=== PATIENT | female | born 1945 | race African-American/Black ===

== ENCOUNTER 2017-11-17 14:19 | Inpatient (IN) | payer OTHER ==
--- NOTE | 2017-11-17 16:18 | PDOC ---
Attending Attestation - Resident Resident Name: CarenKassidy - ED Attending Attestation I have performed the following: I have examined & evaluated the patient, The case was reviewed & discussed with the resident, I agree w/resident's findings & plan, Exceptions are as noted - HPI HPI: 11/17/17 18:38 72yo female sent from [facility] for R groin/hip/sacral wound. Pt is demented, DNR in paperwork. Dr. Salazar originally performed hip surgery in 2009 per the daughter. Purulent drainage from R hip wound. - Physicial Exam PE: 11/17/17 18:41 gen: awake, demented, moans heart: +s1s2 reg lungs: soft wheezing b/l bases abd: soft, obese, nt, R groin with 3cm open wound to inguinal fold, r lateral hip with open wound and packing with purulent drainage - tracts about 6cm into the wound, R sacral unstagable wound with necrotic tissue surrounding the wound ext: contracted LE, radial and pedal pulses intact - Critical Care Time Total Critical Care Time: 45 Critical Care Statement: The care of this patient involved high complexity decision making to prevent further life threatening deterioration of the patient 's condition and/or to evaluate & treat vital organ system(s) failure or risk of failure. - Medical Decision Making 11/17/17 16:18 I, Dr. Ginger Ballard, DO, attest that this document has been prepared under my direction and personally reviewed by me in its entirety. I further attest, that it accurately reflects all work, treatment, procedures and medical decision -making performed by me. 11/17/17 18:40 72yo female with poss infected hardware -pt hypotensive, febrile upon arrival -Packing to R lateral hip wound with purulent draiange -open wound to R groin -large unstagable sacral wound -concern for infected R hip with chronic infection to hardware from prior hip surgery -Dr. Salazar is ortho -will culture wound, blood cultures, start broad spectrum abx will obtain ct to eval the site and poss fistula site -will need ID, admission, ortho eval 11/17/17 19:[address] Salazar, will see patient in consult requests full length femur xray agrees with abx 11/17/17 20:08 resident discussed the case with maria elena who accepts pt to admission Heart Score/ECG Review - ECG Intrepretation Comment:: 11/17/17 18:43 sinus at 87, nl axis, nl interval, no acute st/t wave findings
[2017-11-17] MEDS ORDERED: ACETAMINOPHEN 1000 MG/100 ML VIAL (NON FORMULARY) IVPB ONE (16:42)
[2017-11-17] MEDS ORDERED: SODIUM CHLORIDE 0.9% 1000 ML INFUS.BAG IV ONE (16:42)
[2017-11-17] MEDS ORDERED: PIPERACILLIN/TAZOB 3.375 GM 3.375 GM in DEXTROSE 5%-WATER - 50 ML IVPB ONE (16:43)
[2017-11-17] MEDS ORDERED: VANCOMYCIN 1,000 MG in DEXTROSE 5%-WATER - 250 ML IVPB ONE (16:44)
[2017-11-17] MEDS ORDERED: VANCOMYCIN 1 GRAM (PRE-DOCKED) 1,000 MG/250 ML BAG IVPB ONE (17:19)
[2017-11-17] MEDS ORDERED: ACETAMINOPHEN INJECTION 100 ML IVPB ONE (17:19)
[2017-11-17 17:21] LABS: INR 1.21 (0.83-1.09); PROTHROMBIN TIME (PATIENT) 13.7 SEC (9.7-13.0)
[2017-11-17 17:33] LABS: BASO % 0.5 % (0-2.0); EOS % 0.2 % (0-4.5); HEMATOCRIT 28.5 % (32.4-45.2); HEMOGLOBIN 8.9 GM/dL (10.7-15.3); LYMPH % 6.5 % (8-40); MCH 24.2 pg (25.7-33.7); MCHC 31.3 g/dl (32.0-36.0); MEAN CELL VOLUME 77.2 fl (80-96); MEAN PLT VOLUME 6.8 fl (7.5-11.1); MONO % 7.8 % (3.8-10.2); PLATELET COUNT 745 K/MM3 (134-434); RBC 3.69 M/mm3 (3.60-5.2); RDW 16.8 % (11.6-15.6); WHITE BLOOD COUNT 18.4 K/mm3 (4.0-10.0)
--- NOTE | 2017-11-17 18:51 | PDOC ---
History of Present Illness - General Chief Complaint: Wound Stated Complaint: WOUND CHECK Time Seen by Provider: 11/17/17 16:16 - History of Present Illness Initial Comments: Yasmine Munoz is a 72yo woman with a PMH of dementia, chronic BLE contractures , h/o right hip replacement (?) with known infection, according to her daughter. She was sent from [facility] for management of a right hip wound and large sacral ulcer. Per her daughter Kacey, Ms Munoz had her hip surgery about 8 years ago. She initially did well but had a fall the following spring with a back injury. She then had surgery on her back. Since that time, she has been non-ambulatory and now has leg contractures. Kacey reports that Ms Munoz has been treated numerous times for infection in the hip, and she has had debridements of sacral ulcers multiple times. However, she has only been receiving local wound care for months now. Per her PMD Dr Bennett at her SNF, it does not appear that she has been evaluated by infectious disease or orthopedics for at least 4 years. There are no recent labs or cultures available. She reported that she recently took over the care of Ms Munoz, so she does not know the entire history. However, she reported that the wound had a foul odor and was draining when the patient was evaluated. She felt that it needed evaluation and management by orthopedics and ID. Past History - Past Medical History Allergies/Adverse Reactions: Allergies Allergy/AdvReac Type Severity Reaction Status Date / Time No Known Allergies Allergy Verified 11/17/17 14:52 Home Medications: Ambulatory Orders Doxycycline Monohydrate [Mondoxyne Nl] 100 mg PO DAILY 11/17/17 Fentanyl 1 each TD DAILY 11/17/17 Ferrous Sulfate [Ferosul] 220 mg PO DAILY 11/17/17 Folic Acid 1 mg PO DAILY 11/17/17 Furosemide [Lasix] 20 mg PO DAILY 11/17/17 Lactobacillus Acidophilus [Acidophilus] 1 each PO BID 11/17/17 Sennosides [Senna] 8.6 mg PO DAILY 11/17/17 Vit C/Ascorbate Calcium,Sodium [Vitamin C 500 mg/15 ml Liquid] 500 mg PO DAILY 11/17/17 Anemia: Yes CVA: No (TIA) COPD: No GI Disorders: Yes (Acute Renal Failure) Other medical history: dementia - Immunization History Immunization Up to Date: No - Suicide/Smoking/Psychosocial Hx Smoking History: Unknown if ever smoked Hx Alcohol Use: No Drug/Substance Use Hx: No Substance Use Type: None Review of Systems - Review of Systems Able to Perform ROS?: No Comments:: Could not obtain, patient minimally verbal *Physical Exam - Vital Signs Last Vital Signs Temp Pulse Resp BP Pulse Ox 91 H 17 99/54 95 11/17/17 14:56 11/17/17 14:56 11/17/17 14:56 11/17/17 14:56 - Physical Exam Comments: General: Uncomfortable HEENT: PERRL, EOMI, MMM, adentulous Cards: RRR Pulm: Comfortable on room air, diffuse wheezing Abd: Soft, nontender, nondistended. Draining wound on lower right abdomen between abdominal folds approximately 3cm in length, 2cm deep with purulent fluid. No significant surrounding erythema. Rectal/Perineal: Unstagable sacral ulcer with necrotic tissue, down to bone, stool contaminating wound. Ext: Right hip small less than 0.5cm wound, iodoform packing in place, purulent drainage. Tracks at least 6cm deep. R foot with pitting edema to foot only, distal to ankle. BLE contracted, minimal muscle mass distal to knees Vasc: Extremities WWP. Palpable radial pulses Neuro: Awake. Minimally responsive, does not answer questions, states "go away" when initially examined. Moans and grimaces to pain. Moves BUE equally. ED Treatment Course - LABORATORY CBC & Chemistry Diagram: 11/17/17 16:30 11/17/17 18:14 - ADDITIONAL ORDERS Additional order review: Laboratory Results 11/17/17 11/17/17 11/17/17 16:30 16:30 16:30 PT with INR 13.70 H INR 1.21 H PTT (Actin FS) 31.0 Sodium Cancelled Potassium Cancelled Chloride Cancelled Carbon Dioxide Cancelled Anion Gap Cancelled BUN Cancelled Creatinine Cancelled Creat Clearance w eGFR Cancelled Random Glucose Cancelled Lactic Acid 1.6 Calcium Cancelled Magnesium Cancelled Total Bilirubin Cancelled AST Cancelled ALT Cancelled Alkaline Phosphatase Cancelled Creatine Kinase Cancelled Troponin I Cancelled Total Protein Cancelled Albumin Cancelled 11/17/17 16:30 RBC 3.69 MCV 77.2 L MCHC 31.3 L RDW 16.8 H MPV 6.8 L Neutrophils % 85.0 H Lymphocytes % 6.5 L Monocytes % 7.8 Eosinophils % 0.2 Basophils % 0.5 - Medications Given in the ED: ED Medications Discontinued Medications Generic Name Dose Route Start Last Admin Trade Name Jud PRN Reason Stop Dose Admin Acetaminophen 1,000 mg 11/17/17 16:42 11/17/17 17:30 Ofirmev Injection - IVPB 11/17/17 16:43 1,000 mg ONCE ONE Administration Vancomycin HCl 1,000 mg/ 250 mls @ 166.667 mls/hr 11/17/17 16:44 11/17/17 17: 57 Dextrose IVPB 11/17/17 18:13 166.667 mls/hr ONCE ONE Administration Protocol Sodium Chloride 1,000 ml 11/17/17 16:42 11/17/17 17:31 Normal Saline - IV 11/17/17 16:43 1,000 ml ONCE ONE Administration Medical Decision Making - Medical Decision Making 11/17/17 19:30 Yasmine Munoz is a 72yo woman who presents from [facility] for evaluation of a chronic right hip wound and decubitus ulcer that appear grossly infected. - Unknown medical history; her daughter reports that she has had infected wounds for several years, but her new PMD Dr Bennett does not believe that she has been evaluated or treated for at least 4 years - Unclear what type of wound care she has been receiving - Spoke to Dr Bennett, wound like Ms Munoz seen by ortho and ID - Spoke to Dr Les Cassidy for possible nephrology evaluation, will see tomorrow - Contacted Dr Salazar. Requested femur xrays in addition to CT - Sepsis workup pending. CBC, CMP, lactate, trop, EKG, CXR, CT abd/pelvis and R hip Update: - CXR and EKG without acute changes - Leukocytosis to 18 - Vanc, zosyn, bolus NS ordered - Kidney function OK for contrast, will send to CT - Spoke to hospitalist team. Will admit Discussed with Dr Ballard. *DC/Admit/Observation/Transfer Diagnosis at time of Disposition: Wound, open, hip or thigh with complication, Wound infection - Discharge Dispostion Condition at time of disposition: Fair Decision to Admit order: Yes - Referrals - Patient Instructions - Post Discharge Activity
[2017-11-17 19:07] LABS: ALBUMIN 1.5 g/dl (3.4-5.0); ALK PHOS 181 U/L (45-117); ANION GAP 10 MMOL/L (8-16); BILIRUBIN,TOTAL 0.3 mg/dL (0.2-1.0); BLOOD UREA NITROGEN 19 mg/dL (7-18); CALCIUM 7.9 mg/dL (8.5-10.1); CHLORIDE 103 mmol/L (98-107); CO2 21 mmol/L (21-32); CREATININE 0.5 mg/dL (0.55-1.02); GLUCOSE,RANDOM 99 mg/dL (74-106); MAGNESIUM 1.9 mg/dL (1.8-2.4); SGOT/AST 7 U/L (15-37); SGPT/ALT 8 U/L (12-78); SODIUM 134 mmol/L (136-145)
[2017-11-17] MEDS ORDERED: PIPERACILLIN/TAZOB 3.375 GM 3.375 GM/50 ML BAG IVPB ONE (19:52)
[2017-11-17] MEDS ORDERED: HEPARIN NA (PORCINE) 5,000 UNITS/ML 1ML VIAL ONE (20:48)
--- NOTE | 2017-11-17 20:52 | HP ---
CHIEF COMPLAINT: Decubitus Ulcers and Draining Wounds PCP: Dr. Rosario HISTORY OF PRESENT ILLNESS: This is a 72 y/o woman from [facility] PMH of dementia, chronic BLE contractures, h/o right hip replacement (?) with known infection. Who presents to the ED via ambulance for evaluation of decubitus ulcers and draining wounds. Per patient's daughter who is at bedside, she was sent from [facility] for management of a right hip wound and large sacral ulcer. Per her daughter Kacey, Ms Munoz had her hip surgery about 8 years ago. She initially did well but had a fall the following spring with a back injury. She then had surgery on her back. Since that time, she has been non-ambulatory and now has leg contractures. The daughter reports that the patient has been treated numerous times for infection in the hip, and has had debridements of sacral ulcers multiple times. However, per the daughter, the patient has only been receiving local wound care for months now. Per ED records: Per her PMD Dr Bennett at the [facility], it does not appear that she has been evaluated by infectious disease or orthopedics for at least 4 years. There are no recent labs or cultures available. She reported that she recently took over the care of Ms Munoz, so she does not know the entire history. However, she reported that the wound had a foul odor and was draining when the patient was evaluated. She felt that it needed evaluation and management by orthopedics and ID. ER course was notable for: (1) WBC 18.6 (2) Chest Xray- no acute pathology (3) CTAP- no gross acute pathology within abdomen and pelvis (4) Lower Extremity CT- marked deformity of left hip. no evidence of soft tissue masses or fluid collections about either hip Recent Travel: None PAST MEDICAL HISTORY: See HPI PAST SURGICAL HISTORY: See HPI Social History: Smoking: unknown Alcohol: unknown Drugs: unknown Resides in [facility] Family History: Non-contributory Allergies No Known Allergies Allergy (Verified 11/17/17 14:52) HOME MEDICATIONS: Home Medications Medication Instructions Recorded Doxycycline Monohydrate [Mondoxyne 100 mg PO DAILY 11/17/17 Nl] Fentanyl 1 each TD DAILY 11/17/17 Ferrous Sulfate [Ferosul] 220 mg PO DAILY 11/17/17 Folic Acid 1 mg PO DAILY 11/17/17 Furosemide [Lasix] 20 mg PO DAILY 11/17/17 Lactobacillus Acidophilus 1 each PO BID 11/17/17 [Acidophilus] Sennosides [Senna] 8.6 mg PO DAILY 11/17/17 Vit C/Ascorbate Calcium,Sodium 500 mg PO DAILY 11/17/17 [Vitamin C 500 mg/15 ml Liquid] REVIEW OF SYSTEMS: Dementia CONSTITUTIONAL: Absent: fever, chills, diaphoresis, generalized weakness, malaise, loss of appetite, weight change HEENT: Absent: rhinorrhea, nasal congestion, throat pain, throat swelling, difficulty swallowing, mouth swelling, ear pain, eye pain, visual changes CARDIOVASCULAR: Absent: chest pain, syncope, palpitations, irregular heart rate, lightheadedness , peripheral edema RESPIRATORY: Absent: cough, shortness of breath, dyspnea with exertion, orthopnea, wheezing, stridor, hemoptysis GASTROINTESTINAL: Absent: abdominal pain, abdominal distension, nausea, vomiting, diarrhea, constipation, melena, hematochezia GENITOURINARY: Absent: dysuria, frequency, urgency, hesitancy, hematuria, flank pain, genital pain MUSCULOSKELETAL: Absent: myalgia, arthralgia, joint swelling, back pain, neck pain SKIN: Absent: rash, itching, pallor HEMATOLOGIC/IMMUNOLOGIC: Absent: easy bleeding, easy bruising, lymphadenopathy, frequent infections ENDOCRINE: Absent: unexplained weight gain, unexplained weight loss, heat intolerance, cold intolerance NEUROLOGIC: Absent: headache, focal weakness or paresthesias, dizziness, unsteady gait, seizure, mental status changes, bladder or bowel incontinence PSYCHIATRIC: Absent: anxiety, depression, suicidal or homicidal ideation, hallucinations. PHYSICAL EXAMINATION Vital Signs - 24 hr 11/17/17 14:56 Pulse Rate 91 H Respiratory 17 Rate Blood Pressure 99/54 O2 Sat by Pulse 95 Oximetry (%) GENERAL: Lethargic, arousable to tactile stimulus, non-verbal- at baseline, in no acute distress. HEAD: Normal with no signs of trauma. EYES: Pupils equal, round and reactive to light, sclera anicteric, conjunctiva clear. No lid lag. EARS, NOSE, THROAT: Ears normal, nares patent, oropharynx clear without exudates. Dry mucous membranes. NECK: Normal range of motion, supple without lymphadenopathy, JVD, or masses. LUNGS: Breath sounds equal, clear to auscultation bilaterally. No wheezes, and no crackles. No accessory muscle use. HEART: Regular rate and rhythm, normal S1 and S2 without murmur, rub or gallop. ABDOMEN: Soft, obese, nontender, not distended, normoactive bowel sounds, no guarding, no rebound, no masses. No hepatomegaly or splenomegaly. Ventral hernia noted MUSCULOSKELETAL: Severe contractures, atrophy to LLE UPPER EXTREMITIES: 2+ pulses, warm, well-perfused. No cyanosis. No clubbing. No peripheral edema. LOWER EXTREMITIES: 2+ pulses, warm, well-perfused. No calf tenderness. +1 pitting peripheral edema to RLE,Right foot NEUROLOGICAL: Cranial nerves II-XII intact. Non verbal- baseline, gait not observed- non-ambulatory. PSYCHIATRIC: Cooperative. Some eye contact. Appropriate mood and affect. SKIN: Warm, dry, poor turgor, no rashes noted, normal capillary refill, multiple decubitus ulcers unstageable, #1Left Gluteus 10 cm x 5.5 cm Unstageable. #2 Left Gluteus Inferior 14 cm x8 cm (to the bone) Unstageable. #3Right Gluteus 14 cm x 2 cm x 8 cm Unstageable. #4Right Gluteus Inferior 4 cm x 5 cm Unstageable. 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 with packing noted Laboratory Results - last 24 hr 11/17/17 11/17/17 11/17/17 16:30 16:30 16:30 WBC RBC Hgb Hct MCV MCH MCHC RDW Plt Count MPV Absolute Neuts (auto) Neutrophils % Lymphocytes % Monocytes % Eosinophils % Basophils % Nucleated RBC % PT with INR 13.70 H INR 1.21 H PTT (Actin FS) 31.0 Sodium Cancelled Potassium Cancelled Chloride Cancelled Carbon Dioxide Cancelled Anion Gap Cancelled BUN Cancelled Creatinine Cancelled Creat Clearance w eGFR Cancelled Random Glucose Cancelled Lactic Acid 1.6 Calcium Cancelled Magnesium Cancelled Total Bilirubin Cancelled AST Cancelled ALT Cancelled Alkaline Phosphatase Cancelled Creatine Kinase Cancelled Troponin I Cancelled Total Protein Cancelled Albumin Cancelled 11/17/17 11/17/17 16:30 18:14 WBC 18.4 H RBC 3.69 Hgb 8.9 L Hct 28.5 L MCV 77.2 L MCH 24.2 L MCHC 31.3 L RDW 16.8 H Plt Count 745 H MPV 6.8 L Absolute Neuts (auto) 15.7 H Neutrophils % 85.0 H Lymphocytes % 6.5 L Monocytes % 7.8 Eosinophils % 0.2 Basophils % 0.5 Nucleated RBC % 0 PT with INR INR PTT (Actin FS) Sodium 134 L Potassium 4.0 Chloride 103 Carbon Dioxide 21 Anion Gap 10 BUN 19 H Creatinine 0.5 L Creat Clearance w eGFR > 60 Random Glucose 99 Lactic Acid Calcium 7.9 L Magnesium 1.9 Total Bilirubin 0.3 AST 7 L ALT 8 L Alkaline Phosphatase 181 H Creatine Kinase 45 Troponin I < 0.02 Total Protein 6.0 L Albumin 1.5 L ASSESSMENT/PLAN: This is a 72 y/o woman from [facility] PMHx Dementia. Admitted for Severe Decubital Ulcers and Draining Wounds for further evaluation of their emergent condition. Plan: Will admit to M/S Continue Vancomycin and Zosyn Wound cultures-pending Blood Cultures-pending Appreciate ID consult Appreciate Surgical Consult Appreciate Ortho Consult Monitor CBC, BMP Monitor vitals Case Mangement consult- SNF placement Functional Quadriplegia- complete immobility due to fraility, end stage Dementia , requires total care, turn Q2h, Robbin Lift as needed, Heel protectors, Fall Precautions Wound Care Nurse Continue home meds NPO until eval by Surgical, Ortho Team FEN: D51/2NS@42ml/hr replete lytes prn NPO DVT ppx SCDs Heparin SQ Code Status: DNR, HCP Kacey Munoz, Daughter Dispo: Requires Inpatient Care Problem List - Problem (1) Decubitus ulcer of buttock, unstageable Code(s): L89.300 - PRESSURE ULCER OF UNSPECIFIED BUTTOCK, UNSTAGEABLE (2) Wound infection Code(s): T14.8XXA - OTHER INJURY OF UNSPECIFIED BODY REGION, INITIAL ENCOUNTER; L08.9 - LOCAL INFECTION OF THE SKIN AND SUBCUTANEOUS TISSUE, UNSP (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 - OTH DISRD OF THE SKIN AND SUBCUTANEOUS TISSUE (4) Wound, open, hip or thigh with complication Code(s): S71.009A - UNSPECIFIED OPEN WOUND, UNSPECIFIED HIP, INITIAL ENCOUNTER; S71.109A - UNSPECIFIED OPEN WOUND, UNSPECIFIED THIGH, INITIAL ENCOUNTER (5) Dementia Code(s): F03.90 - UNSPECIFIED DEMENTIA WITHOUT BEHAVIORAL DISTURBANCE (6) Functional quadriplegia Code(s): R53.2 - FUNCTIONAL QUADRIPLEGIA Visit type - Emergency Visit Emergency Visit: Yes ED Registration Date: 11/17/17 Care time: The patient presented to the Emergency Department on the above date and was hospitalized for further evaluation of their emergent condition. - New Patient This patient is new to me today: Yes Date on this admission: 11/17/17 - Critical Care Critical Care patient: No Hospitalist Screening - Colonoscopy Questionnaire Colonoscopy Questionnaire: Colonoscopy Questionnaire - Patient: 50 - 75 years old and never had a screening colonoscopy: Unknown History of colon or rectal polyps, or CA: Unknown History of IBD, Crohn's disease or UC: Unknown History of abdominal radiation therapy as a child: Unknown - Relative: 1 with colon or rectal CA, or polyps at age 60 or younger: Unknown Colon or rectal CA diagnosed at age 45 or younger: Unknown Multiple relatives with colon or rectal CA: Unknown - Outcome: Screening Result: Negative Screen
[2017-11-17] MEDS: DEXTROSE 5%-0.45% SALINE 1,000 ML IV SCH (21:00)
[2017-11-17] MEDS: HEPARIN NA (PORCINE) 5,000 UNITS/ML 1ML VIAL SQ SCH (22:15)
[2017-11-17] MEDS ORDERED: KETOROLAC TROMETHAMINE 15 MG/ML VIAL IVPUSH ONE (22:45)
[2017-11-17] MEDS ORDERED: KETOROLAC TROMETHAMINE 30 MG/1 ML VIAL ONE (23:20)
[2017-11-18] MEDS ORDERED: PIPERACILLIN/TAZOBACTAM 3.375 GM VIAL IVPB ONE ×3 (02:24→19:10)
[2017-11-18] MEDS ORDERED: DEXTROSE 5%-WATER - 50 ML IVPB ONE ×3 (02:25→19:11)
[2017-11-18] MEDS: PIPERACILLIN/TAZOB 3.375 GM 3.375 GM in DEXTROSE 5%-WATER - 50 ML IVPB SCH ×3 (02:26→19:15)
[2017-11-18 03:33] VITALS: BMI 27.6
[2017-11-18] MEDS: HEPARIN NA (PORCINE) 5,000 UNITS/ML 1ML VIAL SQ SCH ×3 (06:57→22:44)
[2017-11-18 07:08] LABS: BASO % 0.6 % (0-2.0); EOS % 0.6 % (0-4.5); HEMATOCRIT 26.3 % (32.4-45.2); HEMOGLOBIN 8.2 GM/dL (10.7-15.3); LYMPH % 7.8 % (8-40); MCH 23.9 pg (25.7-33.7); MCHC 31.2 g/dl (32.0-36.0); MEAN CELL VOLUME 76.5 fl (80-96); MEAN PLT VOLUME 6.2 fl (7.5-11.1); MONO % 7.6 % (3.8-10.2); NEUT % 83.4 % (42.8-82.8); PLATELET COUNT 656 K/MM3 (134-434); RBC 3.44 M/mm3 (3.60-5.2); RDW 16.9 % (11.6-15.6); WHITE BLOOD COUNT 15.3 K/mm3 (4.0-10.0)
[2017-11-18 07:51] LABS: ANION GAP 10 MMOL/L (8-16); BLOOD UREA NITROGEN 18 mg/dL (7-18); CALCIUM 8.1 mg/dL (8.5-10.1); CHLORIDE 106 mmol/L (98-107); CO2 22 mmol/L (21-32); CREATININE 0.5 mg/dL (0.55-1.02); GLUCOSE,RANDOM 90 mg/dL (74-106); POTASSIUM 3.8 mmol/L (3.5-5.1); SODIUM 138 mmol/L (136-145)
--- NOTE | 2017-11-18 09:13 | EKG ---
Test Reason : Blood Pressure : / mmHG Vent. Rate : 087 BPM Atrial Rate : 087 BPM P-R Int : 152 ms QRS Dur : 080 ms QT Int : 354 ms P-R-T Axes : 058 -07 016 degrees QTc Int : 425 ms NORMAL SINUS RHYTHM Poor R POOR R WAVE PROGRESSION WHEN COMPARED WITH ECG OF 11-JUN-2009 21:46, NO SIGNIFICANT CHANGE WAS FOUND Confirmed by SKYE TORRES MD ([id number]) on 11/18/2017 9:13:26 AM Referred By: Confirmed By:SKYE TORRES MD
--- NOTE | 2017-11-18 09:49 | PN ---
Progress Note, Physician Chief Complaint: sepsis Infected decubitous ulcers History of Present Illness: nad Severely contracted several decubitus ulcers, ranging from stage 2-4 Seen by ID Seen by Surgery Wound consult placed IV abx UA/UC pending - Current Medication List Current Medications: Active Medications Acetaminophen (Tylenol -) 650 mg PO Q4H PRN PRN Reason: PAIN OR FEVER Ascorbic Acid (Vitamin C -) 500 mg PO BID [facility] Ferrous Sulfate (Feosol) 300 mg PO BID [facility] Folic Acid (Folic Acid -) 1 mg PO DAILY [facility] Furosemide (Lasix -) 20 mg PO DAILY [facility] Heparin Sodium (Porcine) (Heparin -) 5,000 unit SQ TID [facility] Last Admin: 11/18/17 06:57 Dose: 5,000 unit Dextrose/Sodium Chloride (D5-1/2ns -) 1,000 mls @ 42 mls/hr IV ASDIR [facility] Last Admin: 11/17/17 21:00 Dose: 42 mls/hr Vancomycin HCl 1,250 mg/ (Dextrose) 250 mls @ 250 mls/2 hr IVPB Q24H [facility]; Protocol Piperacillin Sod/Tazobactam (Sod 3.375 gm/ Dextrose) 50 mls @ 100 mls/hr IVPB Q8H-IV [facility]; Protocol Piperacillin Sod/Tazobactam (Sod 3.375 gm/ Dextrose) 50 mls @ 100 mls/hr IVPB Q8H-IV [facility]; Protocol Stop: 11/18/17 10:29 Last Admin: 11/18/17 09:41 Dose: 100 mls/hr Lactobacillus Acidophilus (Bacid -) 1 tab PO DAILY [facility] Multivitamins/Minerals/Vitamin C (Tab-A-Vit -) 1 tab PO DAILY [facility] Senna (Senna -) tab PO DAILY [facility] Zinc Sulfate (Orazinc -) 220 mg PO BID [facility] - Objective Vital Signs: Vital Signs Temperature 98.2 F 11/18/17 02:00 Pulse Rate 71 11/18/17 02:00 Respiratory Rate 18 11/18/17 02:00 Blood Pressure 118/43 11/18/17 02:00 O2 Sat by Pulse Oximetry (%) 100 11/18/17 02:00 Constitutional: Yes: Well Nourished, No Distress, Calm Cardiovascular: Yes: Regular Rate and Rhythm Respiratory: Yes: Regular Gastrointestinal: Yes: Normal Bowel Sounds, Soft Labs: CBC, BMP 11/18/17 06:15 11/18/17 06:15 INR, PTT INR 1.21 (0.83-1.09) H 11/17/17 16:30
[2017-11-18] MEDS ORDERED: FOLIC ACID 1 MG TABLET (FP) PO SCH (10:00)
--- NOTE | 2017-11-18 11:20 | PN ---
Progress Note (short form) - Note Progress Note: ID consult dictated 72 year old female with chronic sinus drainage from chronic infected right hip prosthesis on po doxycycline functional quadraplegia with severe contractures sent to [facility]- first admit for evaluation of chronic sacral wounds and draining fistula no fevers apparently new MD WARD who was concerned about the wounds reviewed ct scans with dr crystal due to artifact from the hip prosthesis no obvious collections noted await ortho and wound care evaluations continue vanco/zosyn f/u cultures Problem List - Problems (1) Decubitus ulcer of buttock, unstageable Code(s): L89.300 - PRESSURE ULCER OF UNSPECIFIED BUTTOCK, UNSTAGEABLE (2) Chronic infection of prosthetic hip Code(s): T84.59XA - INFECT/INFLM REACTION DUE TO OTH INTERNAL JOINT PROSTH, INIT ; Z96.649 - PRESENCE OF UNSPECIFIED ARTIFICIAL HIP JOINT (3) Dementia Code(s): F03.90 - UNSPECIFIED DEMENTIA WITHOUT BEHAVIORAL DISTURBANCE (4) Contractures involving both knees Code(s): M24.561 - CONTRACTURE, RIGHT KNEE; M24.562 - CONTRACTURE, LEFT KNEE
--- NOTE | 2017-11-18 11:37 | CONSULT ---
- Consultation REQUESTING PROVIDER: CONSULT REQUEST: We have been asked to surgically evaluate this patient for evaluation of decubitus ulcer. PCP:Jaron Rosario HISTORY OF PRESENT ILLNESS: 72yo F admitted to the hospital for concerns of infected decubitus ulcer. Pt has a history of dementia and is unable to give history so history obtained from chart. Pt has been bed bound with chronic decubitus ulcer that was felt to be draining and having foul odor by her skilled nursing physician. 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 Home Medications Medication Instructions Recorded Doxycycline Monohydrate [Mondoxyne 100 mg PO DAILY 11/17/17 Nl] Fentanyl 1 each TD DAILY 11/17/17 Ferrous Sulfate [Ferosul] 220 mg PO DAILY 11/17/17 Folic Acid 1 mg PO DAILY 11/17/17 Furosemide [Lasix] 20 mg PO DAILY 11/17/17 Lactobacillus Acidophilus 1 each PO BID 11/17/17 [Acidophilus] Sennosides [Senna] 8.6 mg PO DAILY 11/17/17 Vit C/Ascorbate Calcium,Sodium 500 mg PO DAILY 11/17/17 [Vitamin C 500 mg/15 ml Liquid] Allergies Allergy/AdvReac Type Severity Reaction Status Date / Time No Known Allergies Allergy Verified 11/17/17 14:52 REVIEW OF SYSTEMS: Limited due to pt unable to give history PHYSICAL EXAM: GENERAL: Awake, confused HEAD: Normal with no signs of trauma. EYES: PERRL, sclera anicteric, conjunctiva clear. LUNGS: breathing comfortably. MUSCULOSKELETAL: Normal ROM at all joints. No bony deformities or tenderness. No CVA tenderness. LOWER EXTREMITIES: Legs contracted. Back: Stage 4 decubitus ulcer 12 cm x 15 cm, serous drainage, no erythema. Vital Signs Temperature 98.2 F 11/18/17 02:00 Pulse Rate 71 11/18/17 02:00 Respiratory Rate 18 11/18/17 02:00 Blood Pressure 118/43 11/18/17 02:00 O2 Sat by Pulse Oximetry (%) 100 11/18/17 02:00 Lab Results WBC 15.3 K/mm3 (4.0-10.0) H 11/18/17 06:15 RBC 3.44 M/mm3 (3.60-5.2) L 11/18/17 06:15 Hgb 8.2 GM/dL (10.7-15.3) L 11/18/17 06:15 Hct 26.3 % (32.4-45.2) L 11/18/17 06:15 MCV 76.5 fl (80-96) L 11/18/17 06:15 MCHC 31.2 g/dl (32.0-36.0) L 11/18/17 06:15 RDW 16.9 % (11.6-15.6) H 11/18/17 06:15 Plt Count 656 K/MM3 (134-434) H 11/18/17 06:15 Sodium 138 mmol/L (136-145) 11/18/17 06:15 Potassium 3.8 mmol/L (3.5-5.1) 11/18/17 06:15 Chloride 106 mmol/L (98-107) 11/18/17 06:15 Carbon Dioxide 22 mmol/L (21-32) 11/18/17 06:15 Anion Gap 10 MMOL/L (8-16) 11/18/17 06:15 BUN 18 mg/dL (7-18) 11/18/17 06:15 Creatinine 0.5 mg/dL (0.55-1.02) L 11/18/17 06:15 Random Glucose 90 mg/dL (74-106) 11/18/17 06:15 Calcium 8.1 mg/dL (8.5-10.1) L 11/18/17 06:15 INR 1.21 (0.83-1.09) H 11/17/17 16:30 Problem List - Problems (1) Decubitus ulcer of buttock, unstageable Assessment/Plan: Plan -ulcer is clean with no signs of infection, no surgical debridement indicated at this time. -recommend santyl and foam dressing -abx as per ID Please contact if any change or need for debridement Pt seen and examined with Dr. Sharif who agrees with plan Code(s): L89.300 - PRESSURE ULCER OF UNSPECIFIED BUTTOCK, UNSTAGEABLE
[2017-11-18] MEDS: SENNOSIDES 8.6MG TABLET (FP) PO SCH (12:00)
[2017-11-18] MEDS: ASCORBIC ACID 500 MG TABLET (FP) PO SCH ×2 (12:00→22:43)
[2017-11-18] MEDS: LACTOBACILLUS ACIDOPHILUS 1 TABLET PO SCH (12:00)
[2017-11-18] MEDS: MULTIVITAMINS (DAILY MVI) TABLET (FP) PO SCH (12:00)
[2017-11-18] MEDS: FUROSEMIDE 20 MG TABLET (FP) PO SCH (12:00)
[2017-11-18] MEDS: ZINC SULFATE 220 MG CAPSULE (FP) PO SCH ×2 (12:01→22:43)
[2017-11-18] MEDS: FERROUS SO4 300 MG/5 ML ORAL SOLN UNIT DOSE CUPS PO SCH ×2 (12:02→17:31)
--- NOTE | 2017-11-18 12:11 | CON.ORTH ---
Consult Reason for Consultation:: right hip wound - Alcohol/Substance Use Hx Alcohol Use: No - Smoking History Smoking history: Unknown if ever smoked Have you smoked in the past 12 months: No Home Medications - Allergies Allergies/Adverse Reactions: Allergies Allergy/AdvReac Type Severity Reaction Status Date / Time No Known Allergies Allergy Verified 11/17/17 14:52 - Home Medications Home Medications: Ambulatory Orders Doxycycline Monohydrate [Mondoxyne Nl] 100 mg PO DAILY 11/17/17 Fentanyl 1 each TD DAILY 11/17/17 Ferrous Sulfate [Ferosul] 220 mg PO DAILY 11/17/17 Folic Acid 1 mg PO DAILY 11/17/17 Furosemide [Lasix] 20 mg PO DAILY 11/17/17 Lactobacillus Acidophilus [Acidophilus] 1 each PO BID 11/17/17 Sennosides [Senna] 8.6 mg PO DAILY 11/17/17 Vit C/Ascorbate Calcium,Sodium [Vitamin C 500 mg/15 ml Liquid] 500 mg PO DAILY 11/17/17 Physical Exam for Ortho Vital Signs: Vital Signs Temperature 97.9 F 11/18/17 10:30 Pulse Rate 64 11/18/17 10:30 Respiratory Rate 18 11/18/17 10:30 Blood Pressure 112/51 11/18/17 10:30 O2 Sat by Pulse Oximetry (%) 100 11/18/17 02:00 Labs: CBC, BMP 11/18/17 06:15 11/18/17 06:15 INR, PTT INR 1.21 (0.83-1.09) H 11/17/17 16:30 - Lower Extremity Hip: Yes: Right, Other (severly contracted b/l LE, + clean wound, minimal drainage) Imaging - Results Cat Scan: Report Reviewed, Image Reviewed Assessment/Plan This is a 72 y/o woman from [facility] PMH of dementia, chronic BLE contractures, s/p right THR with known infection. Who presented to the ED via ambulance for evaluation of decubitus ulcers and draining wounds. Per patient's daughter who was at bedside, she was sent from [facility] for management of a right hip wound and large sacral ulcer. Right THR was done about 8 years ago. She initially did well but had a fall the following spring with a back injury. She then had surgery on her back. Since that time, she has been non-ambulatory and now has leg contractures. The daughter reports that the patient has been treated numerous times for infection in the hip, and has had debridements of sacral ulcers multiple times. However, per the daughter, the patient has only been receiving local wound care for months now. a/p right chronically infected THR No surgical intervention Long-term abx as per ID dressing changes nothing further to do d/w Dr. Salazar Re-consult prn
[2017-11-18] MEDS: VANCOMYCIN 1,250 MG in DEXTROSE 5%-WATER - 250 ML IVPB SCH (15:39)
--- NOTE | 2017-11-18 15:42 | CONS ---
DATE OF CONSULTATION: DATE OF DICTATION: 11/18/2017 INFECTIOUS DISEASE CONSULTATION REQUESTING PHYSICIAN: Jaron Rosario M.D. CONSULTING PHYSICIAN: Joi Novak M.D. HISTORY OF PRESENT ILLNESS: This is a 72-year-old woman who resides in the retirement. She has a longstanding history of dementia. 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 She apparently was noted to have more drainage from the sinus tract, and she was sent by her new retirement doctor to the emergency room. Per the hospital notes, she had no fevers or chills, no change in her chronic mental status. She was seen by her new doctor at the [facility] who felt that she required orthopedic and infectious disease evaluations. She does not know her history, and she does not know anything about her prior care. Of note, the daughter states she had hip surgery about 8 years ago and after that she had a fall and has been nonambulatory with leg contractures and has had chronic infection of the hip with debridement of sacral ulcers multiple times. This is her first admission to [facility]. White count in the ER was 18.6. Chest x-ray showed no pathology. I reviewed her CAT scans with Dr. Díaz, and given the artifact from her hip prosthesis, am unable to note any large fluid collections. PAST MEDICAL HISTORY: Notable for dementia, bilateral contractures, right hip replacement with known infection. She apparently has had back surgery as well. SOCIAL HISTORY: Unknown. She resides at the [facility]. She appears to have dementia. FAMILY HISTORY: Not available. ALLERGIES: No known drug allergies. MEDICATION: Include doxycycline, fentanyl patch, ferrous sulfate, folic acid, furosemide, acidophilus, and vitamin C. REVIEW OF SYSTEMS: Not available due to her dementia. PHYSICAL EXAMINATION: GENERAL: She is a large woman in no acute distress. VITAL SIGNS: Temperature 97.9, pulse 64, blood pressure 112/51, respiratory rate 18. HEENT: Normocephalic. Eyes are anicteric. NECK: Supple. LUNGS: Clear to auscultation. HEART: Regular rate and rhythm. ABDOMEN: Soft. She has severe contractures of her lower legs. She requires 2- 3 people to aid in turning her. She has multiple ulcers on her back. She has a draining fistula from her right hip. LABORATORY: Her white count on admission was 18.4, today is 15.3. Hemoglobin 8.2, platelets are 656. BUN and creatinine are 18 and 0.5. Cultures are pending. 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 Extremely incomplete history regarding her prior medical care. Radiographs have not been helpful, she has no fever. I would await orthopedics and wound care evaluations, continue vancomycin and Zosyn for now, follow up cultures. Further recommendations to follow. JOI NOVAK M.D. [id number] MTDD
--- NOTE | 2017-11-18 16:09 | CONSULT ---
Consult Consult Specialty:: Plastic Surgery Referred by:: Jaron Junior Reason for Consultation:: Unstageable Sacral decubitus with necrotic tissue - History of Present Illness Chief Complaint: Multiple Medical conditions including severe dementia , Post Right THR 8 years ago , draining wound, Lower extremity Contractures - History Source History Provided By: Medical Record Limitations to Obtaining History: Dementia - Past Surgical History Past Surgical History: Yes: Joint Replacement - Alcohol/Substance Use Hx Alcohol Use: No - Smoking History Smoking history: Unknown if ever smoked Have you smoked in the past 12 months: No - Social History Usual Living Arrangement: Residential Home Medications - Allergies Allergies/Adverse Reactions: Allergies Allergy/AdvReac Type Severity Reaction Status Date / Time No Known Allergies Allergy Verified 11/17/17 14:52 - Home Medications Home Medications: Ambulatory Orders Doxycycline Monohydrate [Mondoxyne Nl] 100 mg PO DAILY 11/17/17 Fentanyl 1 each TD DAILY 11/17/17 Ferrous Sulfate [Ferosul] 220 mg PO DAILY 11/17/17 Folic Acid 1 mg PO DAILY 11/17/17 Furosemide [Lasix] 20 mg PO DAILY 11/17/17 Lactobacillus Acidophilus [Acidophilus] 1 each PO BID 11/17/17 Sennosides [Senna] 8.6 mg PO DAILY 11/17/17 Vit C/Ascorbate Calcium,Sodium [Vitamin C 500 mg/15 ml Liquid] 500 mg PO DAILY 11/17/17 Physical Exam Vital Signs: Vital Signs Temperature 97.9 F 11/18/17 10:30 Pulse Rate 64 11/18/17 10:30 Respiratory Rate 18 11/18/17 10:30 Blood Pressure 112/51 11/18/17 10:30 O2 Sat by Pulse Oximetry (%) 100 11/18/17 02:00 Labs: CBC, BMP 11/18/17 06:15 11/18/17 06:15 Assessment/Plan 72 year old with Dementia Large necrotic Unstageable Sacral decubitus with drainage Consult confined to decubitus, multiple other wounds Right Buttock 10cmx8.0 cmx 1.5cm Tamar-wound erythema <5cmDraining wound purulent material, with slough, mild odor Right HIp/Buttock 14x8.0x2cm, Moderate drainage, yellow Foul odor Sacral : Unstageable [id number] draining and slough muscle visible Left Buttock Grade IV 10x5.5cmx1.0 draining with slough, mild odor purulent Plan : Simple wound care Apply Kurlex soaked in Diluted Betadine 1:3 Ratio NSS All wounds once or BID as need arises daily At Present family consent will be required for extensive debridement in OR, Patient is High Risk and debridement will not be the solution or treatment for this patient , family has decided DNR Dr Taylor Laboratory Tests 11/17/17 11/17/17 11/17/17 16:30 16:30 18:14 WBC 18.4 H Hgb 8.9 L Hct 28.5 L MCV 77.2 L PT with INR 13.70 H INR 1.21 H Sodium 134 L Potassium 4.0 BUN 19 H Creatinine 0.5 L Calcium AST 7 L ALT 8 L Alkaline Phosphatase 181 H Total Protein 6.0 L Albumin 1.5 L Vitamin B12 Serum Folate Free T4 11/18/17 11/18/17 11/18/17 06:15 06:15 10:40 WBC 15.3 H Hgb 8.2 L Hct 26.3 L MCV 76.5 L PT with INR INR Sodium 138 Potassium 3.8 BUN 18 Creatinine 0.5 L Calcium 8.1 L AST ALT Alkaline Phosphatase Total Protein Albumin Vitamin B12 1206 H Serum Folate 49 H Free T4 1.49 H 30 min
[2017-11-18 19:01] LABS: URINE APPEARANCE TURBID; URINE BILIRUBIN NEGATIVE (<2.0 mg/dL); URINE GLUCOSE (UA) NEGATIVE (NEGATIVE); URINE KETONE NEGATIVE (NEGATIVE); URINE NITRITE NEGATIVE (NEGATIVE); URINE PROTEIN NEGATIVE (NEGATIVE); URINE UROBILINOGEN NEGATIVE mg/dL (0.2-1.0)
[2017-11-18 19:05] LABS: URINE COLOR STRAW; URINE LEUK ESTERASE 3+ (NEGATIVE)
[2017-11-18 19:07] LABS: EPI CELLS RARE /HPF (FEW)
[2017-11-18 20:04] LABS: AMORP URATES MANY /hpf (NONE SEEN)
[2017-11-18] MEDS: ACETAMINOPHEN 325 MG TABLET (FP) PO PRN (22:44)
[2017-11-18] MEDS: DEXTROSE 5%-0.45% SALINE 1,000 ML IV SCH (22:44)
[2017-11-19] MEDS ORDERED: PIPERACILLIN/TAZOBACTAM 3.375 GM VIAL IVPB ONE ×3 (02:39→17:26)
[2017-11-19] MEDS ORDERED: DEXTROSE 5%-WATER - 50 ML IVPB ONE ×3 (02:39→17:26)
[2017-11-19] MEDS: PIPERACILLIN/TAZOB 3.375 GM 3.375 GM in DEXTROSE 5%-WATER - 50 ML IVPB SCH ×3 (02:59→17:29)
[2017-11-19] MEDS: DEXTROSE 5%-0.45% SALINE 1,000 ML IV SCH ×2 (03:28→20:15)
[2017-11-19] MEDS: HEPARIN NA (PORCINE) 5,000 UNITS/ML 1ML VIAL SQ SCH ×3 (06:55→22:24)
[2017-11-19 08:06] LABS: SERUM IRON SATURATION 11 % (15-55); TOTAL IRON BINDING CAPACITY 90 ug/dL (250-450); UIBC 80 ug/dL (118-369)
[2017-11-19] MEDS: FERROUS SO4 300 MG/5 ML ORAL SOLN UNIT DOSE CUPS PO SCH ×2 (10:46→17:28)
[2017-11-19] MEDS: LACTOBACILLUS ACIDOPHILUS 1 TABLET PO SCH (10:46)
[2017-11-19] MEDS: SENNOSIDES 8.6MG TABLET (FP) PO SCH (10:46)
[2017-11-19] MEDS: ZINC SULFATE 220 MG CAPSULE (FP) PO SCH ×2 (10:47→22:24)
[2017-11-19] MEDS: FUROSEMIDE 20 MG TABLET (FP) PO SCH (10:47)
[2017-11-19] MEDS: MULTIVITAMINS (DAILY MVI) TABLET (FP) PO SCH (10:47)
[2017-11-19] MEDS: ASCORBIC ACID 500 MG TABLET (FP) PO SCH ×2 (10:47→22:24)
--- NOTE | 2017-11-19 11:42 | PN ---
Progress Note, Physician - Current Medication List Current Medications: Active Medications Acetaminophen (Tylenol -) 650 mg PO Q4H PRN PRN Reason: PAIN OR FEVER Last Admin: 11/18/17 22:44 Dose: 650 mg Ascorbic Acid (Vitamin C -) 500 mg PO BID SHERLYN Last Admin: 11/19/17 10:47 Dose: 500 mg Ferrous Sulfate (Feosol) 300 mg PO BIDWM SHERLYN Last Admin: 11/19/17 10:46 Dose: 300 mg Furosemide (Lasix -) 20 mg PO DAILY SHERLYN Last Admin: 11/19/17 10:47 Dose: 20 mg Heparin Sodium (Porcine) (Heparin -) 5,000 unit SQ TID SHERLYN Last Admin: 11/19/17 06:55 Dose: 5,000 unit Dextrose/Sodium Chloride (D5-1/2ns -) 1,000 mls @ 42 mls/hr IV ASDIR SHERLYN Last Admin: 11/19/17 03:28 Dose: 42 mls/hr Vancomycin HCl 1,250 mg/ (Dextrose) 250 mls @ 166.667 mls/hr IVPB Q24H SHERLYN; Protocol Last Admin: 11/18/17 15:39 Dose: 166.667 mls/hr Piperacillin Sod/Tazobactam (Sod 3.375 gm/ Dextrose) 50 mls @ 100 mls/hr IVPB Q8H-IV SHERLYN; Protocol Last Admin: 11/19/17 10:47 Dose: 100 mls/hr Lactobacillus Acidophilus (Bacid -) 1 tab PO DAILY [facility] Last Admin: 11/19/17 10:46 Dose: 1 tab Multivitamins/Minerals/Vitamin C (Tab-A-Vit -) 1 tab PO DAILY SHERLYN Last Admin: 11/19/17 10:47 Dose: 1 tab Senna (Senna -) 1 tab PO DAILY SHERLYN Last Admin: 11/19/17 10:46 Dose: 1 tab Zinc Sulfate (Orazinc -) 220 mg PO BID SHERLYN Last Admin: 11/19/17 10:47 Dose: 220 mg - Objective Vital Signs: Vital Signs Temperature 98.1 F 11/19/17 06:00 Pulse Rate 63 11/19/17 06:00 Respiratory Rate 18 11/19/17 06:00 Blood Pressure 106/64 11/19/17 06:00 O2 Sat by Pulse Oximetry (%) 96 11/18/17 21:00 Labs: CBC, BMP 11/18/17 06:15 11/18/17 06:15 INR, PTT INR 1.21 (0.83-1.09) H 11/17/17 16:30 Problem List - Problems (1) Contractures involving both knees Code(s): M24.561 - CONTRACTURE, RIGHT KNEE; M24.562 - CONTRACTURE, LEFT KNEE (2) Dementia Code(s): F03.90 - UNSPECIFIED DEMENTIA WITHOUT BEHAVIORAL DISTURBANCE (3) Wound infection Assessment/Plan: Continue Vancomycin and Zosyn Wound cultures- Blood Cultures Appreciate ID consult Appreciate Surgical Consult Appreciate Ortho Consult Code(s): T14.8XXA - OTHER INJURY OF UNSPECIFIED BODY REGION, INITIAL ENCOUNTER; L08.9 - LOCAL INFECTION OF THE SKIN AND SUBCUTANEOUS TISSUE, UNSP
[2017-11-19] MEDS ORDERED: PT OWN MED DRAWER 7, Y5N ONE (14:09)
[2017-11-19] MEDS: VANCOMYCIN 1,250 MG in DEXTROSE 5%-WATER - 250 ML IVPB SCH (14:11)
[2017-11-20] MEDS ORDERED: PIPERACILLIN/TAZOBACTAM 3.375 GM VIAL IVPB ONE ×4 (00:37→17:24)
[2017-11-20] MEDS ORDERED: DEXTROSE 5%-WATER - 50 ML IVPB ONE ×4 (00:38→17:24)
[2017-11-20] MEDS: PIPERACILLIN/TAZOB 3.375 GM 3.375 GM in DEXTROSE 5%-WATER - 50 ML IVPB SCH ×3 (01:53→17:29)
[2017-11-20] MEDS: DEXTROSE 5%-0.45% SALINE 1,000 ML IV SCH ×2 (03:27→22:25)
[2017-11-20] MEDS: HEPARIN NA (PORCINE) 5,000 UNITS/ML 1ML VIAL SQ SCH ×3 (06:11→22:24)
[2017-11-20] MEDS: FUROSEMIDE 20 MG TABLET (FP) PO SCH (09:42)
[2017-11-20] MEDS: LACTOBACILLUS ACIDOPHILUS 1 TABLET PO SCH (09:42)
[2017-11-20] MEDS: ZINC SULFATE 220 MG CAPSULE (FP) PO SCH ×2 (09:42→22:24)
[2017-11-20] MEDS: MULTIVITAMINS (DAILY MVI) TABLET (FP) PO SCH (09:42)
[2017-11-20] MEDS: FERROUS SO4 300 MG/5 ML ORAL SOLN UNIT DOSE CUPS PO SCH ×2 (09:42→17:29)
[2017-11-20] MEDS: ASCORBIC ACID 500 MG TABLET (FP) PO SCH ×2 (09:48→22:23)
[2017-11-20] MEDS: SENNOSIDES 8.6MG TABLET (FP) PO SCH (09:49)
--- NOTE | 2017-11-20 11:57 | PN ---
Progress Note (short form) - Note Progress Note: alert and confused Vital Signs Period Temp Pulse Resp BP Sys/Jules Pulse Ox Last 24 Hr 98.0 F-100.1 F 79-87 18-72 102-144/47-63 96 cor-rrr lungs clear abd soft contracted CBC, BMP 11/18/17 06:15 11/18/17 06:15 blood cultures negative a/p ortho and wound care/plastics evaluations noted no operative plans given her overall medical condition continue vanco/zosyn repeat cbc in am Problem List - Problems (1) Decubitus ulcer of buttock, unstageable Code(s): L89.300 - PRESSURE ULCER OF UNSPECIFIED BUTTOCK, UNSTAGEABLE (2) Chronic infection of prosthetic hip Code(s): T84.59XA - INFECT/INFLM REACTION DUE TO OTH INTERNAL JOINT PROSTH, INIT ; Z96.649 - PRESENCE OF UNSPECIFIED ARTIFICIAL HIP JOINT (3) Dementia Code(s): F03.90 - UNSPECIFIED DEMENTIA WITHOUT BEHAVIORAL DISTURBANCE (4) Contractures involving both knees Code(s): M24.561 - CONTRACTURE, RIGHT KNEE; M24.562 - CONTRACTURE, LEFT KNEE
[2017-11-20] MEDS ORDERED: PT OWN MED DRAWER 7, Y5N ONE (13:54)
--- NOTE | 2017-11-20 14:24 | PN ---
Progress Note, Physician - Current Medication List Current Medications: Active Medications Acetaminophen (Tylenol -) 650 mg PO Q4H PRN PRN Reason: PAIN OR FEVER Last Admin: 11/18/17 22:44 Dose: 650 mg Ascorbic Acid (Vitamin C -) 500 mg PO BID SHERLYN Last Admin: 11/20/17 09:48 Dose: 500 mg Ferrous Sulfate (Feosol) 300 mg PO BIDWM SHERLYN Last Admin: 11/20/17 09:42 Dose: 300 mg Furosemide (Lasix -) 20 mg PO DAILY SHERLYN Last Admin: 11/20/17 09:42 Dose: 20 mg Heparin Sodium (Porcine) (Heparin -) 5,000 unit SQ TID SHERLYN Last Admin: 11/20/17 13:59 Dose: 5,000 unit Dextrose/Sodium Chloride (D5-1/2ns -) 1,000 mls @ 42 mls/hr IV ASDIR SHERLYN Last Admin: 11/20/17 03:27 Dose: 42 mls/hr Vancomycin HCl 1,250 mg/ (Dextrose) 250 mls @ 166.667 mls/hr IVPB Q24H SHERLYN; Protocol Last Admin: 11/19/17 14:11 Dose: 166.667 mls/hr Piperacillin Sod/Tazobactam (Sod 3.375 gm/ Dextrose) 50 mls @ 100 mls/hr IVPB Q8H-IV SHERLYN; Protocol Last Admin: 11/20/17 09:42 Dose: 100 mls/hr Lactobacillus Acidophilus (Bacid -) 1 tab PO DAILY SHERLYN Last Admin: 11/20/17 09:42 Dose: 1 tab Multivitamins/Minerals/Vitamin C (Tab-A-Vit -) 1 tab PO DAILY SHERLYN Last Admin: 11/20/17 09:42 Dose: 1 tab Senna (Senna -) 1 tab PO DAILY SHERLYN Last Admin: 11/20/17 09:49 Dose: 1 tab Zinc Sulfate (Orazinc -) 220 mg PO BID SHERLYN Last Admin: 11/20/17 09:42 Dose: 220 mg - Objective Vital Signs: Vital Signs Temperature 99.8 F H 11/20/17 06:00 Pulse Rate 80 11/20/17 06:00 Respiratory Rate 72 H 11/20/17 06:00 Blood Pressure 144/63 11/20/17 06:00 O2 Sat by Pulse Oximetry (%) 96 11/19/17 21:00 Cardiovascular: Yes: S1, S2 Respiratory: Yes: Regular, CTA Bilaterally Gastrointestinal: Yes: Normal Bowel Sounds, Soft Labs: CBC, BMP 11/18/17 06:15 11/18/17 06:15 INR, PTT INR 1.21 (0.83-1.09) H 11/17/17 16:30 Problem List - Problems (1) Wound infection Assessment/Plan: Continue Vancomycin and Zosyn Wound cultures- Blood Cultures Appreciate ID consult Appreciate Surgical Consult Code(s): T14.8XXA - OTHER INJURY OF UNSPECIFIED BODY REGION, INITIAL ENCOUNTER; L08.9 - LOCAL INFECTION OF THE SKIN AND SUBCUTANEOUS TISSUE, UNSP (2) Contractures involving both knees Assessment/Plan: -PT -Appreciate Ortho Consult Code(s): M24.561 - CONTRACTURE, RIGHT KNEE; M24.562 - CONTRACTURE, LEFT KNEE (3) Dementia Assessment/Plan: -chronic Code(s): F03.90 - UNSPECIFIED DEMENTIA WITHOUT BEHAVIORAL DISTURBANCE (4) Anemia Assessment/Plan: -follow labs -gi consult Code(s): D64.9 - ANEMIA, UNSPECIFIED
[2017-11-20] MEDS: VANCOMYCIN 1,250 MG in DEXTROSE 5%-WATER - 250 ML IVPB SCH (15:47)
--- NOTE | 2017-11-20 18:09 | HOSP ---
Subjective - Review of Symptoms General: Yes: Other HEENT: Yes: Other Gastrointestinal: Yes: Other Musculoskeletal: Yes: Decreased ROM, Other Neurological: Yes: Other Physical Examination Vital Signs: Vital Signs Temperature 99.0 F 11/20/17 15:52 Pulse Rate 88 11/20/17 15:52 Respiratory Rate 18 11/20/17 15:52 Blood Pressure 113/68 11/20/17 15:52 O2 Sat by Pulse Oximetry (%) 99 11/20/17 09:00 Constitutional: Yes: No Distress Eyes: Yes: Conjunctiva Clear HENT: Yes: Atraumatic Neck: Yes: Supple Cardiovascular: Yes: Regular Rate and Rhythm Respiratory: Yes: Regular Gastrointestinal: Yes: Normal Bowel Sounds Labs: CBC, BMP 11/18/17 06:15 11/18/17 06:15 Hospitalist Encounter Assessment: called by primary RN to evaluate right upper arm edema on this patient On exam patient is laying in the bed, in no acute distress, vitals stable. family at bedside. right upper arm with 20g peripheral IV. below IV site with edema when compared to left arm plan: remove iv site now, elevate arm, apply ice to area patient appears comfortable and is not in any distress monitor
[2017-11-20] MEDS: ACETAMINOPHEN 325 MG TABLET (FP) PO PRN (22:23)
[2017-11-21] MEDS ORDERED: PIPERACILLIN/TAZOBACTAM 3.375 GM VIAL IVPB ONE ×3 (02:22→17:48)
[2017-11-21] MEDS ORDERED: DEXTROSE 5%-WATER - 50 ML IVPB ONE ×3 (02:22→17:49)
[2017-11-21] MEDS: PIPERACILLIN/TAZOB 3.375 GM 3.375 GM in DEXTROSE 5%-WATER - 50 ML IVPB SCH ×3 (02:32→17:52)
[2017-11-21] MEDS: HEPARIN NA (PORCINE) 5,000 UNITS/ML 1ML VIAL SQ SCH ×3 (06:53→22:09)
[2017-11-21] MEDS ORDERED: PT OWN MED DRAWER 7, Y5N ONE (07:44)
[2017-11-21 07:57] LABS: BASO % 0.5 % (0-2.0); EOS % 1.1 % (0-4.5); HEMATOCRIT 31.5 % (32.4-45.2); HEMOGLOBIN 9.8 GM/dL (10.7-15.3); LYMPH % 14.3 % (8-40); MCHC 31.1 g/dl (32.0-36.0); MEAN CELL VOLUME 77.1 fl (80-96); MEAN PLT VOLUME 6.5 fl (7.5-11.1); MONO % 7.9 % (3.8-10.2); NEUT % 76.2 % (42.8-82.8); PLATELET COUNT 743 K/MM3 (134-434); RBC 4.08 M/mm3 (3.60-5.2); RDW 17.4 % (11.6-15.6); WHITE BLOOD COUNT 18.6 K/mm3 (4.0-10.0)
[2017-11-21] MEDS: FERROUS SO4 300 MG/5 ML ORAL SOLN UNIT DOSE CUPS PO SCH ×2 (08:49→17:39)
[2017-11-21] MEDS: ASCORBIC ACID 500 MG TABLET (FP) PO SCH ×2 (09:37→22:09)
[2017-11-21] MEDS: LACTOBACILLUS ACIDOPHILUS 1 TABLET PO SCH (09:37)
[2017-11-21] MEDS: MULTIVITAMINS (DAILY MVI) TABLET (FP) PO SCH (09:37)
[2017-11-21] MEDS: SENNOSIDES 8.6MG TABLET (FP) PO SCH (09:37)
[2017-11-21] MEDS: FUROSEMIDE 20 MG TABLET (FP) PO SCH (09:37)
[2017-11-21] MEDS: ZINC SULFATE 220 MG CAPSULE (FP) PO SCH ×2 (09:37→22:09)
[2017-11-21 10:42] LABS: ALBUMIN 1.4 g/dl (3.4-5.0); ANION GAP 7 MMOL/L (8-16); BLOOD UREA NITROGEN 5 mg/dL (7-18); CHLORIDE 108 mmol/L (98-107); CO2 25 mmol/L (21-32); CREATININE 0.6 mg/dL (0.55-1.02); GLUCOSE,RANDOM 94 mg/dL (74-106); POTASSIUM 3.7 mmol/L (3.5-5.1); SGOT/AST 12 U/L (15-37); SGPT/ALT 9 U/L (12-78); SODIUM 140 mmol/L (136-145)
[2017-11-21 10:44] LABS: ALK PHOS 179 U/L (45-117); BILIRUBIN,TOTAL 0.3 mg/dL (0.2-1.0); TOT PROT 6.1 g/dl (6.4-8.2)
--- NOTE | 2017-11-21 11:27 | PN ---
Progress Note, Physician Chief Complaint: sepsis Infected decubitous ulcers History of Present Illness: nad Severely contracted several decubitus ulcers, ranging from stage 2-4 Seen by ID Seen by Surgery Wound consult IV abx UC/BC/WC: Microbiology 11/17/17 16:30 Groin Gram Stain - Final 11/17/17 16:30 Groin Wound Culture - Final Strep Agalactiae Group B Staphylococcus Coagulase Neg 11/17/17 22:20 Buttock - Right Gram Stain - Final 11/17/17 22:20 Buttock - Right Wound Culture - Preliminary Non Lactose Fermenting Gnb Non Lactose Fermenting Gnb#2 Lactose Fermenting Neg Bacilli Group D Strep Or Entero Coccus 11/18/17 00:23 Decubiti Gram Stain - Final 11/18/17 00:23 Decubiti Wound Culture - Preliminary Non Lactose Fermenting Gnb Non Lactose Fermenting Gnb#2 Lactose Fermenting Neg Bacilli Group D Strep Or Entero Coccus 11/18/17 16:45 Urine - Urine Diop Urine Culture - Final Providencia Stuartii 11/17/17 16:30 Blood - Peripheral Venous Blood Culture - Preliminary NO GROWTH OBTAINED AFTER 72 HOURS, INCUBATION TO CONTINUE FOR 2 DAYS. 11/17/17 16:30 Blood - Peripheral Venous Blood Culture - Preliminary NO GROWTH OBTAINED AFTER 72 HOURS, INCUBATION TO CONTINUE FOR 2 DAYS. - Current Medication List Current Medications: Active Medications Acetaminophen (Tylenol -) 650 mg PO Q4H PRN PRN Reason: PAIN OR FEVER Last Admin: 11/20/17 22:23 Dose: 650 mg Ascorbic Acid (Vitamin C -) 500 mg PO BID [facility] Last Admin: 11/21/17 09:37 Dose: 500 mg Ferrous Sulfate (Feosol) 300 mg PO BIDWM [facility] Last Admin: 11/21/17 08:49 Dose: 300 mg Furosemide (Lasix -) 20 mg PO DAILY [facility] Last Admin: 11/21/17 09:37 Dose: 20 mg Heparin Sodium (Porcine) (Heparin -) 5,000 unit SQ TID [facility] Last Admin: 11/21/17 06:53 Dose: 5,000 unit Dextrose/Sodium Chloride (D5-1/2ns -) 1,000 mls @ 42 mls/hr IV ASDIR [facility] Last Admin: 11/20/17 22:25 Dose: 42 mls/hr Vancomycin HCl 1,250 mg/ (Dextrose) 250 mls @ 166.667 mls/hr IVPB Q24H SHERLYN; Protocol Last Admin: 11/20/17 15:47 Dose: 166.667 mls/hr Piperacillin Sod/Tazobactam (Sod 3.375 gm/ Dextrose) 50 mls @ 100 mls/hr IVPB Q8H-IV SHERLYN; Protocol Last Admin: 11/21/17 09:37 Dose: 100 mls/hr Lactobacillus Acidophilus (Bacid -) 1 tab PO DAILY SHERLYN Last Admin: 11/21/17 09:37 Dose: 1 tab Multivitamins/Minerals/Vitamin C (Tab-A-Vit -) 1 tab PO DAILY SHERLYN Last Admin: 11/21/17 09:37 Dose: 1 tab Senna (Senna -) 1 tab PO DAILY SHERLYN Last Admin: 11/21/17 09:37 Dose: 1 tab Zinc Sulfate (Orazinc -) 220 mg PO BID SHERLYN Last Admin: 11/21/17 09:37 Dose: 220 mg - Objective Vital Signs: Vital Signs Temperature 98.2 F 11/21/17 09:00 Pulse Rate 72 11/21/17 09:00 Respiratory Rate 18 11/21/17 09:00 Blood Pressure 114/64 11/21/17 09:00 O2 Sat by Pulse Oximetry (%) 99 11/20/17 21:00 Constitutional: Yes: Well Nourished, No Distress, Calm Cardiovascular: Yes: Regular Rate and Rhythm Respiratory: Yes: Regular Musculoskeletal: Yes: WNL (severely contracted) Neurological: Yes: Pre-Existing Deficit Labs: CBC, BMP 11/21/17 07:00 11/21/17 10:00 INR, PTT INR 1.21 (0.83-1.09) H 11/17/17 16:30 Problem List - Problems (1) Anemia Assessment/Plan: -Iron deficient -Started on Ferrous sulfate -monitor trend -Stool Ob pending Code(s): D64.9 - ANEMIA, UNSPECIFIED (2) Contractures involving both knees Code(s): M24.561 - CONTRACTURE, RIGHT KNEE; M24.562 - CONTRACTURE, LEFT KNEE (3) Decubitus ulcer of buttock, unstageable Assessment/Plan: -Seen by ID and Plastic surgery -IV abx -WC: Microbiology 11/17/17 16:30 Gram Stain - Final Groin Wound Culture - Final Strep Agalactiae Group B Staphylococcus Coagulase Neg 11/17/17 22:20 Gram Stain - Final Buttock - Right Wound Culture - Preliminary Non Lactose Fermenting Gnb Non Lactose Fermenting Gnb#2 Lactose Fermenting Neg Bacilli Group D Strep Or Entero Coccus 11/18/17 00:23 Gram Stain - Final Decubiti Wound Culture - Preliminary Non Lactose Fermenting Gnb Non Lactose Fermenting Gnb#2 Lactose Fermenting Neg Bacilli Group D Strep Or Entero Coccus 11/18/17 16:45 Urine Culture - Final Urine - Urine Diop Providencia Stuartii 11/17/17 16:30 Blood Culture - Preliminary Blood - Peripheral Venous NO GROWTH OBTAINED AFTER 72 HOURS, INCUBATION TO CONTINUE FOR 2 DAYS. 11/17/17 16:30 Blood Culture - Preliminary Blood - Peripheral Venous NO GROWTH OBTAINED AFTER 72 HOURS, INCUBATION TO CONTINUE FOR 2 DAYS. -Somewhere bid Code(s): L89.300 - PRESSURE ULCER OF UNSPECIFIED BUTTOCK, UNSTAGEABLE (4) Wound infection Assessment/Plan: -IV abx -afebrile -WBC increased -ID on board -Added Zinc + Vit C Code(s): T14.8XXA - OTHER INJURY OF UNSPECIFIED BODY REGION, INITIAL ENCOUNTER; L08.9 - LOCAL INFECTION OF THE SKIN AND SUBCUTANEOUS TISSUE, UNSP (5) Hypoalbuminemia due to protein-calorie malnutrition Assessment/Plan: -Prosource BID Code(s): E46 - UNSPECIFIED PROTEIN-CALORIE MALNUTRITION Assessment/Plan see problem list
--- NOTE | 2017-11-21 12:55 | CON.GI ---
Consult Consult Specialty:: GI Reason for Consultation:: Anemia - History of Present Illness History of Present Illness: Chart reviewed. Hospital course noted. GI was called for anemia. A non-verbal NHR for 8 years patient with advanced dementia who doesn't appear to be in distress. No reports, or records of overt GI bleeding, melena, hematochezia, hematemeis. The patient's daughter, at bedside, reports pt having chromic anemia but no known history of GI issues. labs revealed micorcytic, hypochromic , iron def. anemia and mild, intrahepatic cholestasis. - History Source History Provided By: Family Member, Medical Record - Past Medical History [employer]: Yes: Alzheimer's - Past Surgical History Past Surgical History: Yes: Joint Replacement - Alcohol/Substance Use Hx Alcohol Use: No - Smoking History Smoking history: Unknown if ever smoked Have you smoked in the past 12 months: No - Social History Usual Living Arrangement: Custodial Home Medications - Allergies Allergies/Adverse Reactions: Allergies Allergy/AdvReac Type Severity Reaction Status Date / Time No Known Allergies Allergy Verified 11/17/17 14:52 - Home Medications Home Medications: Ambulatory Orders Doxycycline Monohydrate [Mondoxyne Nl] 100 mg PO DAILY 11/17/17 Fentanyl 1 each TD DAILY 11/17/17 Ferrous Sulfate [Ferosul] 220 mg PO DAILY 11/17/17 Folic Acid 1 mg PO DAILY 11/17/17 Furosemide [Lasix] 20 mg PO DAILY 11/17/17 Lactobacillus Acidophilus [Acidophilus] 1 each PO BID 11/17/17 Sennosides [Senna] 8.6 mg PO DAILY 11/17/17 Vit C/Ascorbate Calcium,Sodium [Vitamin C 500 mg/15 ml Liquid] 500 mg PO DAILY 11/17/17 Family Disease History - Family Disease History Family History: Unable to Obtain Review of Systems Unable to obtain ROS, reason: dementia Physical Exam-GI Vital Signs: Vital Signs Temperature 98.2 F 11/21/17 09:00 Pulse Rate 72 11/21/17 09:00 Respiratory Rate 18 11/21/17 09:00 Blood Pressure 114/64 11/21/17 09:00 O2 Sat by Pulse Oximetry (%) 99 11/20/17 21:00 Constitutional: Yes: No Distress, Calm Eyes: Yes: Conjunctiva Clear HENT: Yes: Atraumatic Neck: Yes: Supple Cardiovascular: Yes: Regular Rate and Rhythm Respiratory: Yes: Regular Gastrointestinal Inspection: No: Ascites, Distention ...Auscultate: Yes: Normoactive Bowel Sounds ...Palpate: Yes: Soft. No: Firm/Rigid, Guarding, Mass, Tenderness, Tenderness, Epigastium Neurological: Yes: Confusion Labs: CBC, BMP 11/21/17 07:00 11/21/17 10:00 INR, PTT INR 1.21 (0.83-1.09) H 11/17/17 16:30 Laboratory Last Values WBC 18.6 K/mm3 (4.0-10.0) H 11/21/17 07:00 RBC 4.08 M/mm3 (3.60-5.2) 11/21/17 07:00 Hgb 9.8 GM/dL (10.7-15.3) L 11/21/17 07:00 Hct 31.5 % (32.4-45.2) L D 11/21/17 07:00 MCV 77.1 fl (80-96) L 11/21/17 07:00 MCH 24.0 pg (25.7-33.7) L 11/21/17 07:00 MCHC 31.1 g/dl (32.0-36.0) L 11/21/17 07:00 RDW 17.4 % (11.6-15.6) H 11/21/17 07:00 Plt Count 743 K/MM3 (134-434) H 11/21/17 07:00 MPV 6.5 fl (7.5-11.1) L 11/21/17 07:00 Absolute Neuts (auto) 14.2 K/mm3 (1.5-8.0) H 11/21/17 07:00 Neutrophils % 76.2 % (42.8-82.8) 11/21/17 07:00 Lymphocytes % 14.3 % (8-40) D 11/21/17 07:00 Monocytes % 7.9 % (3.8-10.2) 11/21/17 07:00 Eosinophils % 1.1 % (0-4.5) D 11/21/17 07:00 Basophils % 0.5 % (0-2.0) 11/21/17 07:00 Nucleated RBC % 0 % (0-0) 11/21/17 07:00 PT with INR 13.70 SEC (9.7-13.0) H 11/17/17 16:30 INR 1.21 (0.83-1.09) H 11/17/17 16:30 PTT (Actin FS) 31.0 SECONDS (25.2-36.5) 11/17/17 16:30 Sodium 140 mmol/L (136-145) 11/21/17 10:00 Potassium 3.7 mmol/L (3.5-5.1) 11/21/17 10:00 Chloride 108 mmol/L (98-107) H 11/21/17 10:00 Carbon Dioxide 25 mmol/L (21-32) 11/21/17 10:00 Anion Gap 7 MMOL/L (8-16) L 11/21/17 10:00 BUN 5 mg/dL (7-18) L 11/21/17 10:00 Creatinine 0.6 mg/dL (0.55-1.02) 11/21/17 10:00 Creat Clearance w eGFR > 60 (>60) 11/21/17 10:00 Random Glucose 94 mg/dL (74-106) 11/21/17 10:00 Hemoglobin A1c % 5.9 % (4.8-6.0) 11/18/17 08:00 Lactic Acid 1.6 mmol/L (0.0-2.0) 11/17/17 16:30 Calcium 8.0 mg/dL (8.5-10.1) L 11/21/17 10:00 Magnesium 1.9 mg/dL (1.8-2.4) 11/17/17 18:14 Iron 10 ug/dL (27-139) L 11/18/17 10:40 TIBC 90 ug/dL (250-450) L 11/18/17 10:40 Iron Saturation 11 % (15-55) L 11/18/17 10:40 Ferritin 399.1 ng/ml (6.9-282.5) H 11/18/17 10:40 Total Bilirubin 0.3 mg/dL (0.2-1.0) 11/21/17 10:00 AST 12 U/L (15-37) L 11/21/17 10:00 ALT 9 U/L (12-78) L 11/21/17 10:00 Alkaline Phosphatase 179 U/L (45-117) H 11/21/17 10:00 Creatine Kinase 45 IU/L (26-192) 11/17/17 18:14 Troponin I < 0.02 ng/ml (0.00-0.05) 11/17/17 18:14 Total Protein 6.1 g/dl (6.4-8.2) L 11/21/17 10:00 Albumin 1.4 g/dl (3.4-5.0) L 11/21/17 10:00 Vitamin B12 1206 pg/ml (180-914) H 11/18/17 10:40 Serum Folate 49 ng/ml (3.1-17.5) H 11/18/17 10:40 TSH 1.44 uIU/ml (0.358-3.74) 11/18/17 10:40 Free T4 1.49 ng/dl (0.76-1.46) H 11/18/17 10:40 Urine Color Straw 11/18/17 16:45 Urine Appearance Turbid 11/18/17 16:45 Urine pH 5.0 (5.0-8.0) 11/18/17 16:45 Ur Specific [place] 1.024 (1.001-1.035) 11/18/17 16:45 Urine Protein Negative (NEGATIVE) 11/18/17 16:45 Urine Glucose (UA) Negative (NEGATIVE) 11/18/17 16:45 Urine Ketones Negative (NEGATIVE) 11/18/17 16:45 Urine Blood Negative (NEGATIVE) 11/18/17 16:45 Urine Nitrite Negative (NEGATIVE) 11/18/17 16:45 Urine Bilirubin Negative (<2.0 mg/dL) 11/18/17 16:45 Urine Urobilinogen Negative mg/dL (0.2-1.0) 11/18/17 16:45 Ur Leukocyte Esterase 3+ (NEGATIVE) H 11/18/17 16:45 Urine WBC (Auto) 1419 /hpf (3-5) 11/18/17 16:45 Urine RBC (Auto) 1 /hpf (0-3) 11/18/17 16:45 Ur Epithelial Cells Rare /HPF (FEW) 11/18/17 16:45 Amorphous Urates Many /hpf (NONE SEEN) 11/18/17 16:45 Imaging - Results Cat Scan: Report Reviewed Problem List - Problems (1) Microcytic hypochromic anemia Code(s): D50.9 - IRON DEFICIENCY ANEMIA, UNSPECIFIED (2) Iron deficiency anemia Code(s): D50.9 - IRON DEFICIENCY ANEMIA, UNSPECIFIED Assessment/Plan A 72F, advanced dementia, non-communicative, bed-bound patient with iron def. anemia w/o stigmata recent, or ongoing GI bleeding. As discussed with the patient's daughter, a conservative approach with iron supplementations, close monitoring for worsening anemia, or bleeding is recommended. Endoscopic work up should be reserved for life saving intervention. Stool for hemocult sent
--- NOTE | 2017-11-21 13:30 | PN ---
Progress Note (short form) - Note Progress Note: alert and confused nonverbal today Vital Signs Period Temp Pulse Resp BP Sys/Jules Pulse Ox Last 24 Hr 97.5 F-99.0 F 70-88 -18 106-119/53-68 99 cor-rrr lungs clear abd soft,nt ext contracted CBC, BMP 11/21/17 07:00 11/21/17 10:00 Microbiology 11/17/17 16:30 Groin Gram Stain - Final 11/17/17 16:30 Groin Wound Culture - Final Strep Agalactiae Group B Staphylococcus Coagulase Neg 11/17/17 22:20 Buttock - Right Gram Stain - Final 11/17/17 22:20 Buttock - Right Wound Culture - Preliminary Non Lactose Fermenting Gnb Non Lactose Fermenting Gnb#2 Lactose Fermenting Neg Bacilli Group D Strep Or Entero Coccus 11/18/17 00:23 Decubiti Gram Stain - Final 11/18/17 00:23 Decubiti Wound Culture - Preliminary Non Lactose Fermenting Gnb Non Lactose Fermenting Gnb#2 Lactose Fermenting Neg Bacilli Group D Strep Or Entero Coccus 11/18/17 16:45 Urine - Urine Diop Urine Culture - Final Providencia Stuartii 11/17/17 16:30 Blood - Peripheral Venous Blood Culture - Preliminary NO GROWTH OBTAINED AFTER 72 HOURS, INCUBATION TO CONTINUE FOR 2 DAYS. 11/17/17 16:30 Blood - Peripheral Venous Blood Culture - Preliminary NO GROWTH OBTAINED AFTER 72 HOURS, INCUBATION TO CONTINUE FOR 2 DAYS. a/p ortho and wound care/plastics evaluations noted no operative plans given her overall medical condition chronic draining sinus from chronic hip infection chronic sacral ulcers leukocytosis- not sure there is much to offer-ct scan severely limited but no gross abscess continue vanco/zosyn repeat cbc in am d/w daughter at bedside, history of dementia for at least 8 years now I explained we donot have much to offer at this time plan hopefully to switch back to doxycycline when leukocytosis improves-suspect doxy was being used for chronic suppression? Problem List - Problems (1) Decubitus ulcer of buttock, unstageable Code(s): L89.300 - PRESSURE ULCER OF UNSPECIFIED BUTTOCK, UNSTAGEABLE (2) Chronic infection of prosthetic hip Code(s): T84.59XA - INFECT/INFLM REACTION DUE TO OTH INTERNAL JOINT PROSTH, INIT ; Z96.649 - PRESENCE OF UNSPECIFIED ARTIFICIAL HIP JOINT (3) Dementia Code(s): F03.90 - UNSPECIFIED DEMENTIA WITHOUT BEHAVIORAL DISTURBANCE (4) Contractures involving both knees Code(s): M24.561 - CONTRACTURE, RIGHT KNEE; M24.562 - CONTRACTURE, LEFT KNEE
[2017-11-21] MEDS: VANCOMYCIN 1,250 MG in DEXTROSE 5%-WATER - 250 ML IVPB SCH (14:41)
[2017-11-21] MEDS: AMINO ACIDS/PROTEIN HYDROLYS 30 ML LIQUID.PKT PO SCH (17:39)
[2017-11-22] MEDS ORDERED: PIPERACILLIN/TAZOBACTAM 3.375 GM VIAL IVPB ONE ×3 (01:27→18:09)
[2017-11-22] MEDS ORDERED: DEXTROSE 5%-WATER - 50 ML IVPB ONE ×3 (01:27→18:09)
[2017-11-22] MEDS: PIPERACILLIN/TAZOB 3.375 GM 3.375 GM in DEXTROSE 5%-WATER - 50 ML IVPB SCH ×3 (02:04→18:15)
[2017-11-22] MEDS: DEXTROSE 5%-0.45% SALINE 1,000 ML IV SCH (02:04)
[2017-11-22] MEDS: HEPARIN NA (PORCINE) 5,000 UNITS/ML 1ML VIAL SQ SCH ×3 (06:52→21:02)
[2017-11-22] MEDS: FERROUS SO4 300 MG/5 ML ORAL SOLN UNIT DOSE CUPS PO SCH ×2 (08:19→18:14)
[2017-11-22] MEDS: AMINO ACIDS/PROTEIN HYDROLYS 30 ML LIQUID.PKT PO SCH ×2 (08:19→18:14)
[2017-11-22] MEDS ORDERED: PT OWN MED DRAWER 7, Y5N ONE (11:26)
[2017-11-22] MEDS: MULTIVITAMINS (DAILY MVI) TABLET (FP) PO SCH (12:42)
[2017-11-22] MEDS: FUROSEMIDE 20 MG TABLET (FP) PO SCH (12:42)
[2017-11-22] MEDS: ASCORBIC ACID 500 MG TABLET (FP) PO SCH ×2 (12:42→21:01)
[2017-11-22] MEDS: LACTOBACILLUS ACIDOPHILUS 1 TABLET PO SCH (12:42)
[2017-11-22] MEDS: ZINC SULFATE 220 MG CAPSULE (FP) PO SCH ×2 (12:43→21:02)
[2017-11-22] MEDS: SENNOSIDES 8.6MG TABLET (FP) PO SCH (12:43)
[2017-11-22] MEDS: VANCOMYCIN 1,250 MG in DEXTROSE 5%-WATER - 250 ML IVPB SCH (13:57)
--- NOTE | 2017-11-22 18:07 | PN ---
Progress Note, Physician Chief Complaint: sepsis Infected decubitous ulcers History of Present Illness: nad Severely contracted several decubitus ulcers, ranging from stage 2-4 Seen by ID Seen by Surgery Wound consult IV abx UC/BC/WC: Microbiology 11/17/17 16:30 Groin Gram Stain - Final 11/17/17 16:30 Groin Wound Culture - Final Strep Agalactiae Group B Staphylococcus Coagulase Neg 11/17/17 22:20 Buttock - Right Gram Stain - Final 11/17/17 22:20 Buttock - Right Wound Culture - Preliminary Non Lactose Fermenting Gnb Non Lactose Fermenting Gnb#2 Lactose Fermenting Neg Bacilli Group D Strep Or Entero Coccus 11/18/17 00:23 Decubiti Gram Stain - Final 11/18/17 00:23 Decubiti Wound Culture - Preliminary Non Lactose Fermenting Gnb Non Lactose Fermenting Gnb#2 Lactose Fermenting Neg Bacilli Group D Strep Or Entero Coccus 11/18/17 16:45 Urine - Urine Diop Urine Culture - Final Providencia Stuartii 11/17/17 16:30 Blood - Peripheral Venous Blood Culture - Preliminary NO GROWTH OBTAINED AFTER 72 HOURS, INCUBATION TO CONTINUE FOR 2 DAYS. 11/17/17 16:30 Blood - Peripheral Venous Blood Culture - Preliminary NO GROWTH OBTAINED AFTER 72 HOURS, INCUBATION TO CONTINUE FOR 2 DAYS. - Current Medication List Current Medications: Active Medications Acetaminophen (Tylenol -) 650 mg PO Q4H PRN PRN Reason: PAIN OR FEVER Last Admin: 11/20/17 22:23 Dose: 650 mg Amino Acids (Prosource No Carb Liquid Pkt) 30 ml PO BID@0800,1730 [facility] Last Admin: 11/22/17 08:19 Dose: 30 ml Ascorbic Acid (Vitamin C -) 500 mg PO BID [facility] Last Admin: 11/22/17 12:42 Dose: 500 mg Ferrous Sulfate (Feosol) 300 mg PO BIDWM [facility] Last Admin: 11/22/17 08:19 Dose: 300 mg Furosemide (Lasix -) 20 mg PO DAILY [facility] Last Admin: 11/22/17 12:42 Dose: 20 mg Heparin Sodium (Porcine) (Heparin -) 5,000 unit SQ TID [facility] Last Admin: 11/22/17 13:56 Dose: 5,000 unit Dextrose/Sodium Chloride (D5-1/2ns -) 1,000 mls @ 42 mls/hr IV ASDIR [facility] Last Admin: 11/22/17 02:04 Dose: 42 mls/hr Vancomycin HCl 1,250 mg/ (Dextrose) 250 mls @ 166.667 mls/hr IVPB Q24H [facility]; Protocol Last Admin: 11/22/17 13:57 Dose: 166.667 mls/hr Piperacillin Sod/Tazobactam (Sod 3.375 gm/ Dextrose) 50 mls @ 100 mls/hr IVPB Q8H-IV [facility]; Protocol Last Admin: 11/22/17 12:43 Dose: 100 mls/hr Lactobacillus Acidophilus (Bacid -) 1 tab PO DAILY [facility] Last Admin: 11/22/17 12:42 Dose: 1 tab Multivitamins/Minerals/Vitamin C (Tab-A-Vit -) 1 tab PO DAILY [facility] Last Admin: 11/22/17 12:42 Dose: 1 tab Senna (Senna -) 1 tab PO DAILY [facility] Last Admin: 11/22/17 12:43 Dose: 1 tab Zinc Sulfate (Orazinc -) 220 mg PO BID [facility] Last Admin: 11/22/17 12:43 Dose: 220 mg - Objective Vital Signs: Vital Signs Temperature 99.8 F H 11/22/17 15:54 Pulse Rate 80 11/22/17 15:54 Respiratory Rate 20 11/22/17 15:54 Blood Pressure 103/49 11/22/17 15:54 O2 Sat by Pulse Oximetry (%) 96 11/21/17 21:00 Constitutional: Yes: Well Nourished, No Distress, Calm Cardiovascular: Yes: Regular Rate and Rhythm Respiratory: Yes: Regular Gastrointestinal: Yes: Normal Bowel Sounds, Soft Musculoskeletal: Yes: WNL Extremities: Yes: WNL Edema: No Peripheral Pulses WNL: Yes Neurological: Yes: Pre-Existing Deficit Labs: CBC, BMP 11/21/17 07:00 11/21/17 10:00 INR, PTT INR 1.21 (0.83-1.09) H 11/17/17 16:30 Problem List - Problems (1) Anemia Assessment/Plan: -Iron deficient -Started on Ferrous sulfate -monitor trend -Stool Ob pending Code(s): D64.9 - ANEMIA, UNSPECIFIED (2) Contractures involving both knees Code(s): M24.561 - CONTRACTURE, RIGHT KNEE; M24.562 - CONTRACTURE, LEFT KNEE (3) Decubitus ulcer of buttock, unstageable Assessment/Plan: -Seen by ID and Plastic surgery -IV abx -WC: Microbiology 11/17/17 16:30 Gram Stain - Final Groin Wound Culture - Final Strep Agalactiae Group B Staphylococcus Coagulase Neg 11/17/17 22:20 Gram Stain - Final Buttock - Right Wound Culture - Preliminary Non Lactose Fermenting Gnb Non Lactose Fermenting Gnb#2 Lactose Fermenting Neg Bacilli Group D Strep Or Entero Coccus 11/18/17 00:23 Gram Stain - Final Decubiti Wound Culture - Preliminary Non Lactose Fermenting Gnb Non Lactose Fermenting Gnb#2 Lactose Fermenting Neg Bacilli Group D Strep Or Entero Coccus 11/18/17 16:45 Urine Culture - Final Urine - Urine Diop Providencia Stuartii 11/17/17 16:30 Blood Culture - Preliminary Blood - Peripheral Venous NO GROWTH OBTAINED AFTER 72 HOURS, INCUBATION TO CONTINUE FOR 2 DAYS. 11/17/17 16:30 Blood Culture - Preliminary Blood - Peripheral Venous NO GROWTH OBTAINED AFTER 72 HOURS, INCUBATION TO CONTINUE FOR 2 DAYS. -[employer] bid Code(s): L89.300 - PRESSURE ULCER OF UNSPECIFIED BUTTOCK, UNSTAGEABLE (4) Wound infection Assessment/Plan: -IV abx -afebrile -WBC increased -ID on board -Added Zinc + Vit C Code(s): T14.8XXA - OTHER INJURY OF UNSPECIFIED BODY REGION, INITIAL ENCOUNTER; L08.9 - LOCAL INFECTION OF THE SKIN AND SUBCUTANEOUS TISSUE, UNSP (5) Hypoalbuminemia due to protein-calorie malnutrition Assessment/Plan: -Prosource BID Code(s): E46 - UNSPECIFIED PROTEIN-CALORIE MALNUTRITION Assessment/Plan see problem list
[2017-11-22] MEDS: ACETAMINOPHEN 325 MG TABLET (FP) PO PRN (20:37)
[2017-11-23] MEDS ORDERED: DEXTROSE 5%-WATER - 50 ML IVPB ONE ×2 (01:01→09:24)
[2017-11-23] MEDS ORDERED: PIPERACILLIN/TAZOBACTAM 3.375 GM VIAL IVPB ONE ×2 (01:01→09:23)
[2017-11-23] MEDS: PIPERACILLIN/TAZOB 3.375 GM 3.375 GM in DEXTROSE 5%-WATER - 50 ML IVPB SCH ×2 (02:17→09:27)
[2017-11-23] MEDS: DEXTROSE 5%-0.45% SALINE 1,000 ML IV SCH ×2 (02:18→21:13)
[2017-11-23] MEDS: HEPARIN NA (PORCINE) 5,000 UNITS/ML 1ML VIAL SQ SCH ×3 (06:54→21:13)
[2017-11-23] MEDS: AMINO ACIDS/PROTEIN HYDROLYS 30 ML LIQUID.PKT PO SCH ×2 (08:59→18:29)
[2017-11-23] MEDS: FERROUS SO4 300 MG/5 ML ORAL SOLN UNIT DOSE CUPS PO SCH ×2 (08:59→18:29)
--- NOTE | 2017-11-23 09:25 | PN ---
Progress Note, Physician - Current Medication List Current Medications: Active Medications Acetaminophen (Tylenol -) 650 mg PO Q4H PRN PRN Reason: PAIN OR FEVER Last Admin: 11/22/17 20:37 Dose: 650 mg Amino Acids (Prosource No Carb Liquid Pkt) 30 ml PO BID@0800,1730 [facility] Last Admin: 11/22/17 18:14 Dose: 30 ml Ascorbic Acid (Vitamin C -) 500 mg PO BID [facility] Last Admin: 11/22/17 21:01 Dose: 500 mg Ferrous Sulfate (Feosol) 300 mg PO BIDWM [facility] Last Admin: 11/22/17 18:14 Dose: 300 mg Furosemide (Lasix -) 20 mg PO DAILY [facility] Last Admin: 11/22/17 12:42 Dose: 20 mg Heparin Sodium (Porcine) (Heparin -) 5,000 unit SQ TID [facility] Last Admin: 11/23/17 06:54 Dose: 5,000 unit Dextrose/Sodium Chloride (D5-1/2ns -) 1,000 mls @ 42 mls/hr IV ASDIR [facility] Last Admin: 11/23/17 02:18 Dose: 42 mls/hr Vancomycin HCl 1,250 mg/ (Dextrose) 250 mls @ 166.667 mls/hr IVPB Q24H [facility]; Protocol Last Admin: 11/22/17 13:57 Dose: 166.667 mls/hr Piperacillin Sod/Tazobactam (Sod 3.375 gm/ Dextrose) 50 mls @ 100 mls/hr IVPB Q8H-IV [facility]; Protocol Last Admin: 11/23/17 02:17 Dose: 100 mls/hr Lactobacillus Acidophilus (Bacid -) 1 tab PO DAILY [facility] Last Admin: 11/22/17 12:42 Dose: 1 tab Multivitamins/Minerals/Vitamin C (Tab-A-Vit -) 1 tab PO DAILY [facility] Last Admin: 11/22/17 12:42 Dose: 1 tab Senna (Senna -) 1 tab PO DAILY [facility] Last Admin: 11/22/17 12:43 Dose: 1 tab Zinc Sulfate (Orazinc -) 220 mg PO BID [facility] Last Admin: 11/22/17 21:02 Dose: 220 mg - Objective Vital Signs: Vital Signs Temperature 98.3 F 11/23/17 06:00 Pulse Rate 70 11/23/17 06:00 Respiratory Rate 20 11/23/17 06:00 Blood Pressure 103/61 11/23/17 06:00 O2 Sat by Pulse Oximetry (%) 96 11/22/17 21:00 Cardiovascular: Yes: S1, S2 Respiratory: Yes: Regular, CTA Bilaterally Gastrointestinal: Yes: Normal Bowel Sounds, Soft Extremities: Yes: Other (contracted) Labs: CBC, BMP 11/21/17 07:00 11/21/17 10:00 INR, PTT INR 1.21 (0.83-1.09) H 11/17/17 16:30 Problem List - Problems (1) Wound infection Code(s): T14.8XXA - OTHER INJURY OF UNSPECIFIED BODY REGION, INITIAL ENCOUNTER; L08.9 - LOCAL INFECTION OF THE SKIN AND SUBCUTANEOUS TISSUE, UNSP (2) Contractures involving both knees Code(s): M24.561 - CONTRACTURE, RIGHT KNEE; M24.562 - CONTRACTURE, LEFT KNEE (3) Dementia Code(s): F03.90 - UNSPECIFIED DEMENTIA WITHOUT BEHAVIORAL DISTURBANCE (4) Anemia Code(s): D64.9 - ANEMIA, UNSPECIFIED Assessment/Plan - Problems (1) Anemia Assessment/Plan: -Iron deficient -Started on Ferrous sulfate -monitor trend -Stool Ob pending Code(s): D64.9 - ANEMIA, UNSPECIFIED (2) Contractures involving both knees Code(s): M24.561 - CONTRACTURE, RIGHT KNEE; M24.562 - CONTRACTURE, LEFT KNEE (3) Decubitus ulcer of buttock, unstageable Assessment/Plan: -Seen by ID and Plastic surgery -IV abx -WC: Microbiology 11/17/17 16:30 Gram Stain - Final Groin Wound Culture - Final Strep Agalactiae Group B Staphylococcus Coagulase Neg 11/17/17 22:20 Gram Stain - Final Buttock - Right Wound Culture - Preliminary Non Lactose Fermenting Gnb Non Lactose Fermenting Gnb#2 Lactose Fermenting Neg Bacilli Group D Strep Or Entero Coccus 11/18/17 00:23 Gram Stain - Final Decubiti Wound Culture - Preliminary Non Lactose Fermenting Gnb Non Lactose Fermenting Gnb#2 Lactose Fermenting Neg Bacilli Group D Strep Or Entero Coccus 11/18/17 16:45 Urine Culture - Final Urine - Urine Diop Providencia Stuartii 11/17/17 16:30 Blood Culture - Preliminary Blood - Peripheral Venous NO GROWTH OBTAINED AFTER 72 HOURS, INCUBATION TO CONTINUE FOR 2 DAYS. 11/17/17 16:30 Blood Culture - Preliminary Blood - Peripheral Venous NO GROWTH OBTAINED AFTER 72 HOURS, INCUBATION TO CONTINUE FOR 2 DAYS. -Prosource bid Code(s): L89.300 - PRESSURE ULCER OF UNSPECIFIED BUTTOCK, UNSTAGEABLE (4) Wound infection Assessment/Plan: -IV abx -afebrile -WBC increased -ID on board -Added Zinc + Vit C Code(s): T14.8XXA - OTHER INJURY OF UNSPECIFIED BODY REGION, INITIAL ENCOUNTER; L08.9 - LOCAL INFECTION OF THE SKIN AND SUBCUTANEOUS TISSUE, UNSP (5) Hypoalbuminemia due to protein-calorie malnutrition Assessment/Plan: -Prosource BID Code(s): E46 - UNSPECIFIED PROTEIN-CALORIE MALNUTRITION
[2017-11-23] MEDS: FUROSEMIDE 20 MG TABLET (FP) PO SCH (09:27)
[2017-11-23] MEDS: ASCORBIC ACID 500 MG TABLET (FP) PO SCH ×2 (09:27→21:13)
[2017-11-23] MEDS: ZINC SULFATE 220 MG CAPSULE (FP) PO SCH ×2 (09:27→21:13)
[2017-11-23] MEDS: SENNOSIDES 8.6MG TABLET (FP) PO SCH (09:27)
[2017-11-23] MEDS: LACTOBACILLUS ACIDOPHILUS 1 TABLET PO SCH (09:27)
[2017-11-23] MEDS: MULTIVITAMINS (DAILY MVI) TABLET (FP) PO SCH (09:27)
[2017-11-23] MEDS: VANCOMYCIN 1,250 MG in DEXTROSE 5%-WATER - 250 ML IVPB SCH (14:59)
--- NOTE | 2017-11-23 16:00 | PN ---
Progress Note (short form) - Note Progress Note: alert and confused babbling Vital Signs Period Temp Pulse Resp BP Sys/Jules Pulse Ox Last 24 Hr 98.3 F-99.9 F 70-80 20-20 103-114/44-61 96 cor-rrr lungs clear abd soft,nt ext contracted CBC, BMP 11/21/17 07:00 11/21/17 10:00 Microbiology 11/17/17 22:20 Buttock - Right Gram Stain - Final 11/17/17 22:20 Buttock - Right Wound Culture - Preliminary Non Lactose Fermenting Gnb Non Lactose Fermenting Gnb#2 Lactose Fermenting Neg Bacilli Group D Strep Or Entero Coccus 11/18/17 00:23 Decubiti Gram Stain - Final 11/18/17 00:23 Decubiti Wound Culture - Preliminary Non Lactose Fermenting Gnb Non Lactose Fermenting Gnb#2 Lactose Fermenting Neg Bacilli Enterococcus Faecalis 11/17/17 16:30 Blood - Peripheral Venous Blood Culture - Final NO GROWTH AFTER 5 DAYS INCUBATION 11/17/17 16:30 Blood - Peripheral Venous Blood Culture - Final NO GROWTH AFTER 5 DAYS INCUBATION 11/17/17 16:30 Groin Gram Stain - Final 11/17/17 16:30 Groin Wound Culture - Final Strep Agalactiae Group B Staphylococcus Coagulase Neg 11/18/17 16:45 Urine - Urine Diop Urine Culture - Final Providencia Stuartii a/p ortho and wound care/plastics evaluations noted no operative plans given her overall medical condition will d/c antibiotics repeat cbc, local care to ulcers Problem List - Problems (1) Decubitus ulcer of buttock, unstageable Code(s): L89.300 - PRESSURE ULCER OF UNSPECIFIED BUTTOCK, UNSTAGEABLE (2) Chronic infection of prosthetic hip Code(s): T84.59XA - INFECT/INFLM REACTION DUE TO OTH INTERNAL JOINT PROSTH, INIT ; Z96.649 - PRESENCE OF UNSPECIFIED ARTIFICIAL HIP JOINT (3) Dementia Code(s): F03.90 - UNSPECIFIED DEMENTIA WITHOUT BEHAVIORAL DISTURBANCE (4) Contractures involving both knees Code(s): M24.561 - CONTRACTURE, RIGHT KNEE; M24.562 - CONTRACTURE, LEFT KNEE
[2017-11-24] MEDS: HEPARIN NA (PORCINE) 5,000 UNITS/ML 1ML VIAL SQ SCH ×3 (06:26→21:43)
[2017-11-24] MEDS: ACETAMINOPHEN 325 MG TABLET (FP) PO PRN (06:26)
[2017-11-24 07:50] LABS: BASO % 0.8 % (0-2.0); EOS % 3.7 % (0-4.5); HEMATOCRIT 27.8 % (32.4-45.2); HEMOGLOBIN 8.9 GM/dL (10.7-15.3); LYMPH % 10.8 % (8-40); MCH 24.6 pg (25.7-33.7); MCHC 32.2 g/dl (32.0-36.0); MEAN CELL VOLUME 76.6 fl (80-96); MEAN PLT VOLUME 6.5 fl (7.5-11.1); MONO % 6.9 % (3.8-10.2); NEUT % 77.8 % (42.8-82.8); PLATELET COUNT 796 K/MM3 (134-434); RBC 3.63 M/mm3 (3.60-5.2); RDW 17.7 % (11.6-15.6); WHITE BLOOD COUNT 18.9 K/mm3 (4.0-10.0)
[2017-11-24 08:28] LABS: ALBUMIN 1.4 g/dl (3.4-5.0); ANION GAP 11 MMOL/L (8-16); BLOOD UREA NITROGEN 9 mg/dL (7-18); CALCIUM 8.2 mg/dL (8.5-10.1); CHLORIDE 109 mmol/L (98-107); CO2 22 mmol/L (21-32); GLUCOSE,RANDOM 89 mg/dL (74-106); POTASSIUM 3.2 mmol/L (3.5-5.1); SODIUM 142 mmol/L (136-145)
[2017-11-24 08:32] LABS: ALK PHOS 159 U/L (45-117); BILIRUBIN,TOTAL 0.3 mg/dL (0.2-1.0); CREATININE 0.7 mg/dL (0.55-1.02); SGOT/AST 10 U/L (15-37); SGPT/ALT 9 U/L (13-61); TOT PROT 6.2 g/dl (6.4-8.2)
[2017-11-24] MEDS: FERROUS SO4 300 MG/5 ML ORAL SOLN UNIT DOSE CUPS PO SCH ×2 (08:55→18:07)
[2017-11-24] MEDS: AMINO ACIDS/PROTEIN HYDROLYS 30 ML LIQUID.PKT PO SCH ×2 (08:55→18:07)
[2017-11-24] MEDS: FUROSEMIDE 20 MG TABLET (FP) PO SCH (09:38)
[2017-11-24] MEDS: LACTOBACILLUS ACIDOPHILUS 1 TABLET PO SCH (09:38)
[2017-11-24] MEDS: ASCORBIC ACID 500 MG TABLET (FP) PO SCH ×2 (09:38→21:43)
[2017-11-24] MEDS: MULTIVITAMINS (DAILY MVI) TABLET (FP) PO SCH (09:38)
[2017-11-24] MEDS: ZINC SULFATE 220 MG CAPSULE (FP) PO SCH ×2 (09:38→21:43)
[2017-11-24] MEDS: SENNOSIDES 8.6MG TABLET (FP) PO SCH (09:48)
--- NOTE | 2017-11-24 12:42 | PN ---
Progress Note, Physician Chief Complaint: patient spike temp 100.7 wound culture noted isolate the patient - Current Medication List Current Medications: Active Medications Acetaminophen (Tylenol -) 650 mg PO Q4H PRN PRN Reason: PAIN OR FEVER Last Admin: 11/24/17 06:26 Dose: 650 mg Amino Acids (Prosource No Carb Liquid Pkt) 30 ml PO BID@0800,1730 [facility] Last Admin: 11/24/17 08:55 Dose: 30 ml Ascorbic Acid (Vitamin C -) 500 mg PO BID [facility] Last Admin: 11/24/17 09:38 Dose: 500 mg Ferrous Sulfate (Feosol) 300 mg PO BIDWM [facility] Last Admin: 11/24/17 08:55 Dose: 300 mg Furosemide (Lasix -) 20 mg PO DAILY [facility] Last Admin: 11/24/17 09:38 Dose: 20 mg Heparin Sodium (Porcine) (Heparin -) 5,000 unit SQ TID [facility] Last Admin: 11/24/17 06:26 Dose: 5,000 unit Lactobacillus Acidophilus (Bacid -) 1 tab PO DAILY [facility] Last Admin: 11/24/17 09:38 Dose: 1 tab Multivitamins/Minerals/Vitamin C (Tab-A-Vit -) 1 tab PO DAILY [facility] Last Admin: 11/24/17 09:38 Dose: 1 tab Potassium Chloride (K-Dur -) 40 meq PO ONCE ONE Stop: 11/24/17 12:36 Senna (Senna -) 1 tab PO DAILY [facility] Last Admin: 11/24/17 09:48 Dose: Not Given Zinc Sulfate (Orazinc -) 220 mg PO BID [facility] Last Admin: 11/24/17 09:38 Dose: 220 mg - Objective Vital Signs: Vital Signs Temperature 98.3 F 11/24/17 09:00 Pulse Rate 88 11/24/17 09:00 Respiratory Rate 20 11/24/17 09:00 Blood Pressure 130/63 11/24/17 09:00 O2 Sat by Pulse Oximetry (%) 96 11/23/17 21:00 Constitutional: Yes: Calm Cardiovascular: Yes: Regular Rate and Rhythm, S1, S2 Respiratory: Yes: CTA Bilaterally (in upper zones), Diminished Gastrointestinal: Yes: Normal Bowel Sounds, Soft Wound/Incision: Yes: Other (all wounds opened and examined) Labs: CBC, BMP 11/24/17 06:30 11/24/17 06:30 INR, PTT INR 1.21 (0.83-1.09) H 11/17/17 16:30 Problem List - Problems (1) Leukocytosis Assessment/Plan: temp 100.7 ID follow up isolation Microbiology 11/18/17 16:45 Urine - Urine Diop Urine Culture - Final Providencia Stuartii 11/18/17 00:23 Decubiti Gram Stain - Final 11/18/17 00:23 Decubiti Wound Culture - Preliminary Proteus Mirabilis Acinetobacter Baumannii/Haemol Escherichia Coli Enterococcus Faecalis Code(s): D72.829 - ELEVATED WHITE BLOOD CELL COUNT, UNSPECIFIED (2) Decubitus ulcer of buttock, unstageable Assessment/Plan: dr patel on board NS and betadine zinc sulfate. MVT patient DNR Code(s): L89.300 - PRESSURE ULCER OF UNSPECIFIED BUTTOCK, UNSTAGEABLE (3) Hypoalbuminemia due to protein-calorie malnutrition Assessment/Plan: proscource Code(s): E46 - UNSPECIFIED PROTEIN-CALORIE MALNUTRITION (4) Anemia Assessment/Plan: iron and vitamin C Code(s): D64.9 - ANEMIA, UNSPECIFIED (5) Electrolyte abnormality Assessment/Plan: potassium ordered recheck in AM check magnesium Code(s): E87.8 - OTH DISORDERS OF ELECTROLYTE AND FLUID BALANCE, NEC
[2017-11-24] MEDS ORDERED: POTASSIUM CHLORIDE TABS 20 MEQ TABLET.ER (FP) PO ONE (13:00)
--- NOTE | 2017-11-24 14:35 | PN ---
Progress Note (short form) - Note Progress Note: alert and confused babbling loose stools today Vital Signs Period Temp Pulse Resp BP Sys/Jules Pulse Ox Last 24 Hr 98.3 F-100.7 F 88-97 20-20 121-130/63-75 96-96 cor-rrr lungs clear abd soft,nt wounds examined no associated cellulitis or purulence fistula with continuous serous drainage CBC, BMP 11/24/17 06:30 11/24/17 06:30 Microbiology 11/17/17 22:20 Buttock - Right Gram Stain - Final 11/17/17 22:20 Buttock - Right Wound Culture - Final Non Lactose Fermenting Gnb Non Lactose Fermenting Gnb#2 Lactose Fermenting Neg Bacilli Group D Strep Or Entero Coccus 11/18/17 00:23 Decubiti Gram Stain - Final 11/18/17 00:23 Decubiti Wound Culture - Final Proteus Mirabilis Acinetobacter Baumannii/Haemol Escherichia Coli Enterococcus Faecalis 11/17/17 16:30 Blood - Peripheral Venous Blood Culture - Final NO GROWTH AFTER 5 DAYS INCUBATION 11/17/17 16:30 Blood - Peripheral Venous Blood Culture - Final NO GROWTH AFTER 5 DAYS INCUBATION 11/17/17 16:30 Groin Gram Stain - Final 11/17/17 16:30 Groin Wound Culture - Final Strep Agalactiae Group B Staphylococcus Coagulase Neg 11/18/17 16:45 Urine - Urine Diop Urine Culture - Final Providencia Stuartii a/p ortho and wound care/plastics evaluations noted no operative plans given her overall medical condition she is colonized with multiple resistant GRN would agree with contact isolation continue off antibiotics persistent leukocytosis despite 5 days bs antibiotics stool cdiff Problem List - Problems (1) Decubitus ulcer of buttock, unstageable Code(s): L89.300 - PRESSURE ULCER OF UNSPECIFIED BUTTOCK, UNSTAGEABLE (2) Chronic infection of prosthetic hip Code(s): T84.59XA - INFECT/INFLM REACTION DUE TO OTH INTERNAL JOINT PROSTH, INIT ; Z96.649 - PRESENCE OF UNSPECIFIED ARTIFICIAL HIP JOINT (3) Dementia Code(s): F03.90 - UNSPECIFIED DEMENTIA WITHOUT BEHAVIORAL DISTURBANCE (4) Contractures involving both knees Code(s): M24.561 - CONTRACTURE, RIGHT KNEE; M24.562 - CONTRACTURE, LEFT KNEE
[2017-11-25] MEDS: HEPARIN NA (PORCINE) 5,000 UNITS/ML 1ML VIAL SQ SCH ×3 (06:20→21:24)
[2017-11-25 08:30] LABS: HEMATOCRIT 27.1 % (32.4-45.2); HEMOGLOBIN 8.4 GM/dL (10.7-15.3); MCH 23.8 pg (25.7-33.7); MCHC 30.9 g/dl (32.0-36.0); MEAN CELL VOLUME 77.2 fl (80-96); MEAN PLT VOLUME 6.7 fl (7.5-11.1); PLATELET COUNT 633 K/MM3 (134-434); RBC 3.51 M/mm3 (3.60-5.2); RDW 17.8 % (11.6-15.6); WHITE BLOOD COUNT 19.1 K/mm3 (4.0-10.0)
[2017-11-25 09:18] LABS: ALBUMIN 1.4 g/dl (3.4-5.0); BLOOD UREA NITROGEN 12 mg/dL (7-18); CALCIUM 8.2 mg/dL (8.5-10.1); CO2 24 mmol/L (21-32); GLUCOSE,RANDOM 81 mg/dL (74-106); MAGNESIUM 1.9 mg/dL (1.8-2.4)
[2017-11-25 10:20] LABS: ALK PHOS 150 U/L (45-117); ANION GAP 8 MMOL/L (8-16); BILIRUBIN,TOTAL 0.2 mg/dL (0.2-1.0); CHLORIDE 110 mmol/L (98-107); CREATININE 0.6 mg/dL (0.55-1.3); POTASSIUM 3.4 mmol/L (3.5-5.1); SGOT/AST 14 U/L (15-37); SGPT/ALT 10 U/L (13-61); SODIUM 142 mmol/L (136-145); TOT PROT 5.9 g/dl (6.4-8.2)
[2017-11-25 10:59] LABS: ANISOCYTOSIS 1+; MACROCYTOSIS 0; PLATELET ESTIMATE INCREASED
[2017-11-25] MEDS ORDERED: PT OWN MED DRAWER 7, Y5N ONE ×2 (11:54→17:18)
[2017-11-25] MEDS: MULTIVITAMINS (DAILY MVI) TABLET (FP) PO SCH (11:56)
[2017-11-25] MEDS: LACTOBACILLUS ACIDOPHILUS 1 TABLET PO SCH (11:56)
[2017-11-25] MEDS: ASCORBIC ACID 500 MG TABLET (FP) PO SCH ×2 (11:56→21:23)
[2017-11-25] MEDS: FERROUS SO4 300 MG/5 ML ORAL SOLN UNIT DOSE CUPS PO SCH ×2 (11:56→17:54)
[2017-11-25] MEDS: ZINC SULFATE 220 MG CAPSULE (FP) PO SCH ×2 (11:56→21:23)
[2017-11-25] MEDS: AMINO ACIDS/PROTEIN HYDROLYS 30 ML LIQUID.PKT PO SCH ×2 (11:57→17:54)
[2017-11-25] MEDS: FUROSEMIDE 20 MG TABLET (FP) PO SCH (11:57)
[2017-11-25] MEDS ORDERED: POTASSIUM CHLORIDE ORAL LIQUID 20 MEQ/15 ML PO ONE ×2 (13:12→13:45)
--- NOTE | 2017-11-25 13:18 | PN ---
Progress Note, Physician Chief Complaint: patient seen and examined persistent leukocytosis awaiting c diff sample no fever - Current Medication List Current Medications: Active Medications Acetaminophen (Tylenol -) 650 mg PO Q4H PRN PRN Reason: PAIN OR FEVER Last Admin: 11/24/17 06:26 Dose: 650 mg Amino Acids (Prosource No Carb Liquid Pkt) 30 ml PO BID@0800,1730 [facility] Last Admin: 11/25/17 11:57 Dose: 30 ml Ascorbic Acid (Vitamin C -) 500 mg PO BID [facility] Last Admin: 11/25/17 11:56 Dose: 500 mg Ferrous Sulfate (Feosol) 300 mg PO BIDWM [facility] Last Admin: 11/25/17 11:56 Dose: 300 mg Furosemide (Lasix -) 20 mg PO DAILY [facility] Last Admin: 11/25/17 11:57 Dose: 20 mg Heparin Sodium (Porcine) (Heparin -) 5,000 unit SQ TID [facility] Last Admin: 11/25/17 06:20 Dose: 5,000 unit Lactobacillus Acidophilus (Bacid -) 1 tab PO DAILY [facility] Last Admin: 11/25/17 11:56 Dose: 1 tab Multivitamins/Minerals/Vitamin C (Tab-A-Vit -) 1 tab PO DAILY [facility] Last Admin: 11/25/17 11:56 Dose: 1 tab Potassium Chloride (Potassium Chloride Oral Liquid) 20 meq PO ONCE ONE Stop: 11/25/17 13:13 Zinc Sulfate (Orazinc -) 220 mg PO BID [facility] Last Admin: 11/25/17 11:56 Dose: 220 mg - Objective Vital Signs: Vital Signs Temperature 98.7 F 11/25/17 06:00 Pulse Rate 83 11/25/17 11:30 Respiratory Rate 18 11/25/17 11:30 Blood Pressure 125/58 11/25/17 11:30 O2 Sat by Pulse Oximetry (%) 98 11/24/17 21:00 Constitutional: Yes: Calm Cardiovascular: Yes: Regular Rate and Rhythm, S1, S2 Respiratory: Yes: CTA Bilaterally Gastrointestinal: Yes: Normal Bowel Sounds, Soft Extremities: Yes: Other (flexed extremties) Labs: CBC, BMP 11/25/17 08:05 11/25/17 08:05 INR, PTT INR 1.21 (0.83-1.09) H 11/17/17 16:30 Problem List - Problems (1) Leukocytosis Assessment/Plan: afebrile today off abx observe presistent leukocytosis ID follow up noted isolation Microbiology 11/18/17 16:45 Urine - Urine Diop Urine Culture - Final Providencia Stuartii 11/18/17 00:23 Decubiti Gram Stain - Final 11/18/17 00:23 Decubiti Wound Culture - Preliminary Proteus Mirabilis Acinetobacter Baumannii/Haemol Escherichia Coli Enterococcus Faecalis awaiting c diff sample Code(s): D72.829 - ELEVATED WHITE BLOOD CELL COUNT, UNSPECIFIED (2) Decubitus ulcer of buttock, unstageable Assessment/Plan: dr patel on board NS and betadine zinc sulfate. MVT patient DNR Code(s): L89.300 - PRESSURE ULCER OF UNSPECIFIED BUTTOCK, UNSTAGEABLE (3) Hypoalbuminemia due to protein-calorie malnutrition Assessment/Plan: proscource Code(s): E46 - UNSPECIFIED PROTEIN-CALORIE MALNUTRITION (4) Anemia Assessment/Plan: iron and vitamin C Code(s): D64.9 - ANEMIA, UNSPECIFIED (5) Electrolyte abnormality Assessment/Plan: potassium ordered- repleted recheck in AM check magnesium Code(s): E87.8 - OTH DISORDERS OF ELECTROLYTE AND FLUID BALANCE, NEC
[2017-11-25] MEDS: ACETAMINOPHEN 325 MG TABLET (FP) PO PRN (21:24)
[2017-11-26] MEDS: HEPARIN NA (PORCINE) 5,000 UNITS/ML 1ML VIAL SQ SCH ×3 (05:51→22:13)
--- NOTE | 2017-11-26 08:21 | PN ---
Progress Note, Physician Chief Complaint: EVENTS AND NOTES REVIEWED NAD - Current Medication List Current Medications: Active Medications Acetaminophen (Tylenol -) 650 mg PO Q4H PRN PRN Reason: PAIN OR FEVER Last Admin: 11/25/17 21:24 Dose: 650 mg Amino Acids (Prosource No Carb Liquid Pkt) 30 ml PO BID@0800,1730 [facility] Last Admin: 11/25/17 17:54 Dose: 30 ml Ascorbic Acid (Vitamin C -) 500 mg PO BID [facility] Last Admin: 11/25/17 21:23 Dose: 500 mg Ferrous Sulfate (Feosol) 300 mg PO BIDWM [facility] Last Admin: 11/25/17 17:54 Dose: 300 mg Furosemide (Lasix -) 20 mg PO DAILY [facility] Last Admin: 11/25/17 11:57 Dose: 20 mg Heparin Sodium (Porcine) (Heparin -) 5,000 unit SQ TID [facility] Last Admin: 11/26/17 05:51 Dose: 5,000 unit Lactobacillus Acidophilus (Bacid -) 1 tab PO DAILY [facility] Last Admin: 11/25/17 11:56 Dose: 1 tab Multivitamins/Minerals/Vitamin C (Tab-A-Vit -) 1 tab PO DAILY [facility] Last Admin: 11/25/17 11:56 Dose: 1 tab Zinc Sulfate (Orazinc -) 220 mg PO BID [facility] Last Admin: 11/25/17 21:23 Dose: 220 mg - Objective Vital Signs: Vital Signs Temperature 99.2 F 11/26/17 06:00 Pulse Rate 82 11/26/17 06:00 Respiratory Rate 16 11/26/17 06:00 Blood Pressure 124/59 11/26/17 06:00 O2 Sat by Pulse Oximetry (%) 98 11/25/17 21:00 Constitutional: Yes: No Distress Eyes: Yes: WNL HENT: Yes: WNL Neck: Yes: WNL Cardiovascular: Yes: WNL Respiratory: Yes: WNL Gastrointestinal: Yes: WNL Genitourinary: Yes: Incontinence Musculoskeletal: Yes: Muscle Weakness Extremities: Yes: Other Edema: No Peripheral Pulses WNL: Yes Integumentary: Yes: WNL Wound/Incision: Yes: Clean/Dry Neurological: Yes: Pre-Existing Deficit ...Motor Strength: LLE, RLE Psychiatric: Yes: Other Labs: CBC, BMP 11/25/17 08:05 11/25/17 08:05 INR, PTT INR 1.21 (0.83-1.09) H 11/17/17 16:30 Problem List - Problems (1) Anemia Code(s): D64.9 - ANEMIA, UNSPECIFIED (2) Chronic infection of prosthetic hip Code(s): T84.59XA - INFECT/INFLM REACTION DUE TO OTH INTERNAL JOINT PROSTH, INIT ; Z96.649 - PRESENCE OF UNSPECIFIED ARTIFICIAL HIP JOINT (3) Contractures involving both knees Code(s): M24.561 - CONTRACTURE, RIGHT KNEE; M24.562 - CONTRACTURE, LEFT KNEE (4) Decubitus ulcer of buttock, unstageable Code(s): L89.300 - PRESSURE ULCER OF UNSPECIFIED BUTTOCK, UNSTAGEABLE (5) Dementia Code(s): F03.90 - UNSPECIFIED DEMENTIA WITHOUT BEHAVIORAL DISTURBANCE Assessment/Plan MONITOR LABS PT EVAL PAIN CONTROL CHECK VS OOB TO CHAIR WITH ASSIST
[2017-11-26] MEDS: ASCORBIC ACID 500 MG TABLET (FP) PO SCH ×2 (09:59→22:13)
[2017-11-26] MEDS: MULTIVITAMINS (DAILY MVI) TABLET (FP) PO SCH (09:59)
[2017-11-26] MEDS: FERROUS SO4 300 MG/5 ML ORAL SOLN UNIT DOSE CUPS PO SCH ×2 (09:59→17:24)
[2017-11-26] MEDS: FUROSEMIDE 20 MG TABLET (FP) PO SCH (09:59)
[2017-11-26] MEDS: LACTOBACILLUS ACIDOPHILUS 1 TABLET PO SCH (09:59)
[2017-11-26] MEDS: ZINC SULFATE 220 MG CAPSULE (FP) PO SCH ×2 (09:59→22:13)
[2017-11-26] MEDS: AMINO ACIDS/PROTEIN HYDROLYS 30 ML LIQUID.PKT PO SCH ×3 (09:59→17:25)
[2017-11-26] MEDS ORDERED: POTASSIUM CHLORIDE TABS 10 MEQ TABLET.ER (FP) PO ONE (16:15)
[2017-11-27] MEDS: HEPARIN NA (PORCINE) 5,000 UNITS/ML 1ML VIAL SQ SCH ×3 (05:55→21:40)
[2017-11-27] MEDS: FERROUS SO4 300 MG/5 ML ORAL SOLN UNIT DOSE CUPS PO SCH ×2 (09:53→17:52)
[2017-11-27] MEDS: AMINO ACIDS/PROTEIN HYDROLYS 30 ML LIQUID.PKT PO SCH ×2 (09:53→17:53)
[2017-11-27] MEDS: ASCORBIC ACID 500 MG TABLET (FP) PO SCH ×2 (09:54→21:39)
[2017-11-27] MEDS: LACTOBACILLUS ACIDOPHILUS 1 TABLET PO SCH (09:54)
[2017-11-27] MEDS: FUROSEMIDE 20 MG TABLET (FP) PO SCH ×2 (09:54→15:16)
[2017-11-27] MEDS: MULTIVITAMINS (DAILY MVI) TABLET (FP) PO SCH ×2 (09:54→09:55)
[2017-11-27] MEDS: ZINC SULFATE 220 MG CAPSULE (FP) PO SCH ×2 (09:54→21:39)
--- NOTE | 2017-11-27 11:00 | PN ---
Progress Note, Physician Chief Complaint: OFF ANTIBIOTICS DAUGHTER BEDSIDE DIANA LOWGRADE FEVERS - Current Medication List Current Medications: Active Medications Acetaminophen (Tylenol -) 650 mg PO Q4H PRN PRN Reason: PAIN OR FEVER Last Admin: 11/25/17 21:24 Dose: 650 mg Amino Acids (Prosource No Carb Liquid Pkt) 30 ml PO BID@0800,1730 [facility] Last Admin: 11/27/17 09:53 Dose: 30 ml Ascorbic Acid (Vitamin C -) 500 mg PO BID [facility] Last Admin: 11/27/17 09:54 Dose: 500 mg Ferrous Sulfate (Feosol) 300 mg PO BIDWM [facility] Last Admin: 11/27/17 09:53 Dose: 300 mg Furosemide (Lasix -) 20 mg PO DAILY [facility] Last Admin: 11/27/17 09:54 Dose: 20 mg Heparin Sodium (Porcine) (Heparin -) 5,000 unit SQ TID [facility] Last Admin: 11/27/17 05:55 Dose: 5,000 unit Lactobacillus Acidophilus (Bacid -) 1 tab PO DAILY [facility] Last Admin: 11/27/17 09:54 Dose: 1 tab Multivitamins/Minerals/Vitamin C (Tab-A-Vit -) 1 tab PO DAILY [facility] Last Admin: 11/27/17 09:54 Dose: 1 tab Zinc Sulfate (Orazinc -) 220 mg PO BID [facility] Last Admin: 11/27/17 09:54 Dose: 220 mg - Objective Vital Signs: Vital Signs Temperature 99.5 F 11/27/17 04:00 Pulse Rate 75 11/27/17 04:00 Respiratory Rate 20 11/27/17 04:00 Blood Pressure 112/60 11/27/17 04:00 O2 Sat by Pulse Oximetry (%) 96 11/26/17 21:00 Constitutional: Yes: Mild Distress Eyes: Yes: WNL HENT: Yes: WNL Neck: Yes: WNL Cardiovascular: Yes: WNL Respiratory: Yes: CTA Bilaterally, Rhonchi Gastrointestinal: Yes: WNL Genitourinary: Yes: Incontinence Musculoskeletal: Yes: Muscle Weakness Integumentary: Yes: Pressure Ulcer, Rash Wound/Incision: Yes: Open to air, Reddened Neurological: Yes: Pre-Existing Deficit ...Motor Strength: LUE, LLE, RUE, RLE Psychiatric: Yes: Other Labs: CBC, BMP 11/25/17 08:05 11/25/17 08:05 INR, PTT INR 1.21 (0.83-1.09) H 11/17/17 16:30 Problem List - Problems (1) Anemia Code(s): D64.9 - ANEMIA, UNSPECIFIED (2) Chronic infection of prosthetic hip Code(s): T84.59XA - INFECT/INFLM REACTION DUE TO OTH INTERNAL JOINT PROSTH, INIT ; Z96.649 - PRESENCE OF UNSPECIFIED ARTIFICIAL HIP JOINT (3) Contractures involving both knees Code(s): M24.561 - CONTRACTURE, RIGHT KNEE; M24.562 - CONTRACTURE, LEFT KNEE (4) Decubitus ulcer of buttock, unstageable Code(s): L89.300 - PRESSURE ULCER OF UNSPECIFIED BUTTOCK, UNSTAGEABLE (5) Dementia Code(s): F03.90 - UNSPECIFIED DEMENTIA WITHOUT BEHAVIORAL DISTURBANCE Assessment/Plan MONITOR OFF ABX WOUND CARE BACITRACIN DVT PROPHYLAXIS FOLLOW UP CX ID FOLLOW UP
--- NOTE | 2017-11-27 11:02 | PN ---
Progress Note (short form) - Note Progress Note: BACITRACIN ORDERED TO MULTIPLE DECUBITI SKIN ULCERS SITES LABS ORDERED FOR TODAY MVI/VITC ZINC FOR WOUND HEALING CONTINUE SURGERY EVAL FOR ULCERS ON HIP/SACRAM Problem List - Problems (1) Anemia Code(s): D64.9 - ANEMIA, UNSPECIFIED (2) Chronic infection of prosthetic hip Code(s): T84.59XA - INFECT/INFLM REACTION DUE TO OTH INTERNAL JOINT PROSTH, INIT ; Z96.649 - PRESENCE OF UNSPECIFIED ARTIFICIAL HIP JOINT (3) Contractures involving both knees Code(s): M24.561 - CONTRACTURE, RIGHT KNEE; M24.562 - CONTRACTURE, LEFT KNEE (4) Decubitus ulcer of buttock, unstageable Code(s): L89.300 - PRESSURE ULCER OF UNSPECIFIED BUTTOCK, UNSTAGEABLE (5) Dementia Code(s): F03.90 - UNSPECIFIED DEMENTIA WITHOUT BEHAVIORAL DISTURBANCE
[2017-11-27] MEDS: BACITRACIN 15 GM TUBE TOPICAL OINTMENT TP SCH (12:16)
[2017-11-27] MEDS: ACETAMINOPHEN 325 MG TABLET (FP) PO PRN (21:39)
[2017-11-28] MEDS: HEPARIN NA (PORCINE) 5,000 UNITS/ML 1ML VIAL SQ SCH ×3 (05:18→21:16)
[2017-11-28] MEDS ORDERED: PT OWN MED DRAWER 7, Y5N ONE (05:46)
[2017-11-28] MEDS: AMINO ACIDS/PROTEIN HYDROLYS 30 ML LIQUID.PKT PO SCH ×2 (08:58→17:25)
[2017-11-28] MEDS: FERROUS SO4 300 MG/5 ML ORAL SOLN UNIT DOSE CUPS PO SCH ×2 (08:58→17:25)
[2017-11-28 10:39] LABS: HEMATOCRIT 27.5 % (32.4-45.2); HEMOGLOBIN 8.5 GM/dL (10.7-15.3); MCH 23.9 pg (25.7-33.7); MCHC 30.8 g/dl (32.0-36.0); MEAN CELL VOLUME 77.7 fl (80-96); MEAN PLT VOLUME 6.8 fl (7.5-11.1); PLATELET COUNT 641 K/MM3 (134-434); RBC 3.54 M/mm3 (3.60-5.2); RDW 18.7 % (11.6-15.6); WHITE BLOOD COUNT 21.8 K/mm3 (4.0-10.0)
[2017-11-28 11:02] LABS: CHLORIDE 112 mmol/L (98-107); POTASSIUM 3.7 mmol/L (3.5-5.1); SODIUM 144 mmol/L (136-145)
[2017-11-28 11:10] LABS: ALBUMIN 1.5 g/dl (3.4-5.0); ALK PHOS 161 U/L (45-117); ANION GAP 12 MMOL/L (8-16); BILIRUBIN,TOTAL 0.2 mg/dL (0.2-1.0); BLOOD UREA NITROGEN 14 mg/dL (7-18); CALCIUM 8.5 mg/dL (8.5-10.1); CO2 20 mmol/L (21-32); CREATININE 0.7 mg/dL (0.55-1.3); GLUCOSE,RANDOM 99 mg/dL (74-106); SGOT/AST 11 U/L (15-37); SGPT/ALT 13 U/L (13-61); TOT PROT 6.3 g/dl (6.4-8.2)
--- NOTE | 2017-11-28 11:19 | PN ---
Progress Note, Physician Chief Complaint: sepsis Infected decubitous ulcers History of Present Illness: nad Severely contracted several decubitus ulcers, ranging from stage 2-4 Seen by ID Seen by Surgery Wound consult observing off IV abx UC/BC/WC: Microbiology 11/17/17 16:30 Groin Gram Stain - Final 11/17/17 16:30 Groin Wound Culture - Final Strep Agalactiae Group B Staphylococcus Coagulase Neg 11/17/17 22:20 Buttock - Right Gram Stain - Final 11/17/17 22:20 Buttock - Right Wound Culture - Preliminary Non Lactose Fermenting Gnb Non Lactose Fermenting Gnb#2 Lactose Fermenting Neg Bacilli Group D Strep Or Entero Coccus 11/18/17 00:23 Decubiti Gram Stain - Final 11/18/17 00:23 Decubiti Wound Culture - Preliminary Non Lactose Fermenting Gnb Non Lactose Fermenting Gnb#2 Lactose Fermenting Neg Bacilli Group D Strep Or Entero Coccus 11/18/17 16:45 Urine - Urine Diop Urine Culture - Final Providencia Stuartii 11/17/17 16:30 Blood - Peripheral Venous Blood Culture - Preliminary NO GROWTH OBTAINED AFTER 72 HOURS, INCUBATION TO CONTINUE FOR 2 DAYS. 11/17/17 16:30 Blood - Peripheral Venous Blood Culture - Preliminary NO GROWTH OBTAINED AFTER 72 HOURS, INCUBATION TO CONTINUE FOR 2 DAYS. - Current Medication List Current Medications: Active Medications Acetaminophen (Tylenol -) 650 mg PO Q4H PRN PRN Reason: PAIN OR FEVER Last Admin: 11/27/17 21:39 Dose: 650 mg Amino Acids (Prosource No Carb Liquid Pkt) 30 ml PO BID@0800,1730 [facility] Last Admin: 11/28/17 08:58 Dose: 30 ml Ascorbic Acid (Vitamin C -) 500 mg PO BID [facility] Last Admin: 11/27/17 21:39 Dose: 500 mg Bacitracin (Bacitracin -) 1 applic TP DAILY [facility] Last Admin: 11/27/17 12:16 Dose: 1 applic Ferrous Sulfate (Feosol) 300 mg PO BIDWM [facility] Last Admin: 11/28/17 08:58 Dose: 300 mg Furosemide (Lasix -) 20 mg PO DAILY [facility] Last Admin: 11/27/17 15:16 Dose: 20 mg Heparin Sodium (Porcine) (Heparin -) 5,000 unit SQ TID [facility] Last Admin: 11/28/17 05:18 Dose: 5,000 unit Lactobacillus Acidophilus (Bacid -) 1 tab PO DAILY [facility] Last Admin: 11/27/17 09:54 Dose: 1 tab Multivitamins/Minerals/Vitamin C (Tab-A-Vit -) 1 tab PO DAILY [facility] Last Admin: 11/27/17 09:55 Dose: 1 tab Zinc Sulfate (Orazinc -) 220 mg PO BID [facility] Last Admin: 11/27/17 21:39 Dose: 220 mg - Objective Vital Signs: Vital Signs Temperature 97.4 F L 11/28/17 09:00 Pulse Rate 85 11/28/17 09:00 Respiratory Rate 20 11/28/17 09:00 Blood Pressure 104/68 11/28/17 09:00 O2 Sat by Pulse Oximetry (%) 96 11/27/17 21:00 Constitutional: Yes: Well Nourished, No Distress, Calm Cardiovascular: Yes: Regular Rate and Rhythm Respiratory: Yes: Regular Gastrointestinal: Yes: Normal Bowel Sounds, Soft Musculoskeletal: Yes: Other (Severely contracted) Neurological: Yes: Pre-Existing Deficit Labs: CBC, BMP 11/28/17 09:42 11/28/17 09:42 INR, PTT INR 1.21 (0.83-1.09) H 11/17/17 16:30 Problem List - Problems (1) Anemia Assessment/Plan: -Iron deficient -Started on Ferrous sulfate -monitor trend -Stool Ob negative Code(s): D64.9 - ANEMIA, UNSPECIFIED (2) Contractures involving both knees Code(s): M24.561 - CONTRACTURE, RIGHT KNEE; M24.562 - CONTRACTURE, LEFT KNEE (3) Decubitus ulcer of buttock, unstageable Assessment/Plan: -Seen by ID and Plastic surgery -off IV abx -WC: Microbiology 11/25/17 15:30 Stool Clostridium difficile Antigen (SILVESTRE) - Final 11/25/17 15:30 Stool Clostridium difficile Toxin Assay - Final 11/17/17 22:20 Buttock - Right Gram Stain - Final 11/17/17 22:20 Buttock - Right Wound Culture - Final Non Lactose Fermenting Gnb Non Lactose Fermenting Gnb#2 Lactose Fermenting Neg Bacilli Group D Strep Or Entero Coccus 11/18/17 00:23 Decubiti Gram Stain - Final 11/18/17 00:23 Decubiti Wound Culture - Final Proteus Mirabilis Acinetobacter Baumannii/Haemol Escherichia Coli Enterococcus Faecalis 11/17/17 16:30 Blood - Peripheral Venous Blood Culture - Final NO GROWTH AFTER 5 DAYS INCUBATION 11/17/17 16:30 Blood - Peripheral Venous Blood Culture - Final NO GROWTH AFTER 5 DAYS INCUBATION 11/17/17 16:30 Groin Gram Stain - Final 11/17/17 16:30 Groin Wound Culture - Final Strep Agalactiae Group B Staphylococcus Coagulase Neg 11/18/17 16:45 Urine - Urine Diop Urine Culture - Final Providencia Stuartii -Prosource bid Code(s): L89.300 - PRESSURE ULCER OF UNSPECIFIED BUTTOCK, UNSTAGEABLE (4) Wound infection Assessment/Plan: -off IV abx -afebrile -WBC increased -ID on board -Added Zinc + Vit C Code(s): T14.8XXA - OTHER INJURY OF UNSPECIFIED BODY REGION, INITIAL ENCOUNTER; L08.9 - LOCAL INFECTION OF THE SKIN AND SUBCUTANEOUS TISSUE, UNSP (5) Hypoalbuminemia due to protein-calorie malnutrition Assessment/Plan: -Prosource BID Code(s): E46 - UNSPECIFIED PROTEIN-CALORIE MALNUTRITION Assessment/Plan see problem list
[2017-11-28] MEDS: LACTOBACILLUS ACIDOPHILUS 1 TABLET PO SCH (11:30)
[2017-11-28] MEDS: ZINC SULFATE 220 MG CAPSULE (FP) PO SCH ×2 (11:30→21:17)
[2017-11-28] MEDS: MULTIVITAMINS (DAILY MVI) TABLET (FP) PO SCH (11:31)
[2017-11-28] MEDS: ASCORBIC ACID 500 MG TABLET (FP) PO SCH ×2 (11:31→21:15)
[2017-11-28] MEDS: FUROSEMIDE 20 MG TABLET (FP) PO SCH (11:31)
[2017-11-28] MEDS: BACITRACIN 15 GM TUBE TOPICAL OINTMENT TP SCH (11:37)
--- NOTE | 2017-11-28 21:53 | DS ---
Physical Examination Vital Signs: Vital Signs Temperature 99.3 F 11/28/17 14:32 Pulse Rate 97 H 11/28/17 14:32 Respiratory Rate 18 11/28/17 16:36 Blood Pressure 146/64 11/28/17 14:32 O2 Sat by Pulse Oximetry (%) 99 11/28/17 16:36 Findings/Remarks: This is a 72 y/o woman from [facility] PMH of dementia, chronic BLE contractures, h/o right hip replacement (?) with known infection. Who presents to the ED via ambulance for evaluation of decubitus ulcers and draining wounds. Per patient's daughter who is at bedside, she was sent from [facility] for management of a right hip wound and large sacral ulcer. Per her daughter Kacey, Ms Munoz had her hip surgery about 8 years ago. She initially did well but had a fall the following spring with a back injury. She then had surgery on her back. Since that time, she has been non-ambulatory and now has leg contractures. The daughter reports that the patient has been treated numerous times for infection in the hip, and has had debridements of sacral ulcers multiple times. However, per the daughter, the patient has only been receiving local wound care for months now. Per ED records: Per her PMD Dr Bennett at the [facility], it does not appear that she has been evaluated by infectious disease or orthopedics for at least 4 years. There are no recent labs or cultures available. She reported that she recently took over the care of Ms Munoz, so she does not know the entire history. However, she reported that the wound had a foul odor and was draining when the patient was evaluated. She felt that it needed evaluation and management by orthopedics and ID. Constitutional: Yes: Well Nourished, No Distress, Calm Cardiovascular: Yes: Regular Rate and Rhythm Respiratory: Yes: Regular Gastrointestinal: Yes: Normal Bowel Sounds, Soft Musculoskeletal: Yes: Other (severe contractions) Labs: CBC, BMP 11/28/17 09:42 11/28/17 09:42 Discharge Summary Reason For Visit: OPEN WOUND OF HIP AND THIGH WITH COMPLICATION Current Active Problems Anemia (Acute) Chronic infection of prosthetic hip (Acute) Contractures involving both knees (Acute) Decubitus ulcer of buttock, unstageable (Acute) Dementia (Acute) Electrolyte abnormality (Acute) Fistula (Acute) Functional quadriplegia (Acute) Hypoalbuminemia due to protein-calorie malnutrition (Acute) Iron deficiency anemia (Acute) Leukocytosis (Acute) Microcytic hypochromic anemia (Acute) Wound infection (Acute) Wound, open, hip or thigh with complication (Acute) Hospital Course: Microbiology 11/25/17 15:30 Stool Clostridium difficile Antigen (SILVESTRE) - Final 11/25/17 15:30 Stool Clostridium difficile Toxin Assay - Final 11/17/17 22:20 Buttock - Right Gram Stain - Final 11/17/17 22:20 Buttock - Right Wound Culture - Final Non Lactose Fermenting Gnb Non Lactose Fermenting Gnb#2 Lactose Fermenting Neg Bacilli Group D Strep Or Entero Coccus 11/18/17 00:23 Decubiti Gram Stain - Final 11/18/17 00:23 Decubiti Wound Culture - Final Proteus Mirabilis Acinetobacter Baumannii/Haemol Escherichia Coli Enterococcus Faecalis 11/17/17 16:30 Blood - Peripheral Venous Blood Culture - Final NO GROWTH AFTER 5 DAYS INCUBATION 11/17/17 16:30 Blood - Peripheral Venous Blood Culture - Final NO GROWTH AFTER 5 DAYS INCUBATION 11/17/17 16:30 Groin Gram Stain - Final 11/17/17 16:30 Groin Wound Culture - Final Strep Agalactiae Group B Staphylococcus Coagulase Neg 11/18/17 16:45 Urine - Urine Diop Urine Culture - Final Providencia Stuartii Laboratory Results - last 24 hr 11/28/17 11/28/17 11/28/17 00:52 05:49 09:42 WBC 21.8 H RBC 3.54 L Hgb 8.5 L Hct 27.5 L MCV 77.7 L MCH 23.9 L MCHC 30.8 L RDW 18.7 H Plt Count 641 H MPV 6.8 L Sodium Potassium Chloride Carbon Dioxide Anion Gap BUN Creatinine Creat Clearance w eGFR POC Glucometer 117 98 Random Glucose Calcium Total Bilirubin AST ALT Alkaline Phosphatase Total Protein Albumin 11/28/17 09:42 WBC RBC Hgb Hct MCV MCH MCHC RDW Plt Count MPV Sodium 144 Potassium 3.7 Chloride 112 H Carbon Dioxide 20 L Anion Gap 12 BUN 14 Creatinine 0.7 Creat Clearance w eGFR > 60 POC Glucometer Random Glucose 99 Calcium 8.5 Total Bilirubin 0.2 AST 11 L ALT 13 Alkaline Phosphatase 161 H Total Protein 6.3 L Albumin 1.5 L Condition: Fair - Instructions Referrals: Jaron Rosario MD [Primary Care Provider] - Disposition: [facility] - Home Medications Comprehensive Discharge Medication List: Ambulatory Orders Doxycycline Monohydrate [Mondoxyne Nl] 100 mg PO DAILY 11/17/17 Fentanyl 1 each TD DAILY 11/17/17 Ferrous Sulfate [Ferosul] 220 mg PO DAILY 11/17/17 Folic Acid 1 mg PO DAILY 11/17/17 Furosemide [Lasix] 20 mg PO DAILY 11/17/17 Lactobacillus Acidophilus [Acidophilus] 1 each PO BID 11/17/17 Sennosides [Senna] 8.6 mg PO DAILY 11/17/17 Vit C/Ascorbate Calcium,Sodium [Vitamin C 500 mg/15 ml Liquid] 500 mg PO DAILY 11/17/17
[2017-11-28] MEDS: ACETAMINOPHEN 325 MG TABLET (FP) PO PRN (23:16)
[2017-11-29] MEDS: HEPARIN NA (PORCINE) 5,000 UNITS/ML 1ML VIAL SQ SCH ×3 (05:58→21:30)
[2017-11-29 07:51] LABS: BASO % 0.8 % (0-2.0); EOS % 1.3 % (0-4.5); HEMATOCRIT 28.3 % (32.4-45.2); HEMOGLOBIN 8.8 GM/dL (10.7-15.3); LYMPH % 10.8 % (8-40); MCHC 31.1 g/dl (32.0-36.0); MEAN CELL VOLUME 77.1 fl (80-96); MONO % 7.4 % (3.8-10.2); NEUT % 79.7 % (42.8-82.8); PLATELET COUNT 603 K/MM3 (134-434); RBC 3.67 M/mm3 (3.60-5.2); RDW 18.5 % (11.6-15.6); WHITE BLOOD COUNT 22.7 K/mm3 (4.0-10.0)
[2017-11-29 08:11] LABS: CHLORIDE 109 mmol/L (98-107); POTASSIUM 3.5 mmol/L (3.5-5.1); SODIUM 140 mmol/L (136-145)
[2017-11-29 08:28] LABS: ALBUMIN 1.5 g/dl (3.4-5.0); ALK PHOS 162 U/L (45-117); ANION GAP 9 MMOL/L (8-16); BILIRUBIN,TOTAL 0.3 mg/dL (0.2-1); BLOOD UREA NITROGEN 17 mg/dL (7-18); CALCIUM 8.5 mg/dL (8.5-10.1); CO2 22 mmol/L (21-32); CREATININE 0.7 mg/dL (0.55-1.3); GLUCOSE,RANDOM 101 mg/dL (74-106); SGOT/AST 15 U/L (15-37); SGPT/ALT 13 U/L (13-61); TOT PROT 6.4 g/dl (6.4-8.2)
[2017-11-29] MEDS ORDERED: PT OWN MED DRAWER 7, Y5N ONE (09:00)
[2017-11-29 10:47] LABS: ANISOCYTOSIS 1+; MACROCYTOSIS 0; PLATELET ESTIMATE INCREASED; TARGET CELLS 1+
[2017-11-29] MEDS ORDERED: ONDANSETRON 4 MG/2 ML VIAL IVPB PRN (10:53)
--- NOTE | 2017-11-29 10:55 | PN ---
Progress Note, Physician Chief Complaint: sepsis Infected decubitous ulcers History of Present Illness: nad Severely contracted several decubitus ulcers, ranging from stage 2-4 Seen by ID Seen by Surgery Wound consult observing off IV abx UC/BC/WC: Microbiology 11/17/17 16:30 Groin Gram Stain - Final 11/17/17 16:30 Groin Wound Culture - Final Strep Agalactiae Group B Staphylococcus Coagulase Neg 11/17/17 22:20 Buttock - Right Gram Stain - Final 11/17/17 22:20 Buttock - Right Wound Culture - Preliminary Non Lactose Fermenting Gnb Non Lactose Fermenting Gnb#2 Lactose Fermenting Neg Bacilli Group D Strep Or Entero Coccus 11/18/17 00:23 Decubiti Gram Stain - Final 11/18/17 00:23 Decubiti Wound Culture - Preliminary Non Lactose Fermenting Gnb Non Lactose Fermenting Gnb#2 Lactose Fermenting Neg Bacilli Group D Strep Or Entero Coccus 11/18/17 16:45 Urine - Urine Diop Urine Culture - Final Providencia Stuartii 11/17/17 16:30 Blood - Peripheral Venous Blood Culture - Preliminary NO GROWTH OBTAINED AFTER 72 HOURS, INCUBATION TO CONTINUE FOR 2 DAYS. 11/17/17 16:30 Blood - Peripheral Venous Blood Culture - Preliminary NO GROWTH OBTAINED AFTER 72 HOURS, INCUBATION TO CONTINUE FOR 2 DAYS. leukocytosis without any fevers - Current Medication List Current Medications: Active Medications Acetaminophen (Tylenol -) 650 mg PO Q4H PRN PRN Reason: PAIN OR FEVER Last Admin: 11/28/17 23:16 Dose: 650 mg Amino Acids (Prosource No Carb Liquid Pkt) 30 ml PO BID@0800,1730 REPLACED BY [facility] Last Admin: 11/28/17 17:25 Dose: 30 ml Ascorbic Acid (Vitamin C -) 500 mg PO BID REPLACED BY [facility] Last Admin: 11/28/17 21:15 Dose: 500 mg Bacitracin (Bacitracin -) 1 applic TP DAILY REPLACED BY [facility] Last Admin: 11/28/17 11:37 Dose: 1 applic Ferrous Sulfate (Feosol) 300 mg PO BIDWM REPLACED BY [facility] Last Admin: 11/28/17 17:25 Dose: 300 mg Furosemide (Lasix -) 20 mg PO DAILY REPLACED BY [facility] Last Admin: 11/28/17 11:31 Dose: 20 mg Heparin Sodium (Porcine) (Heparin -) 5,000 unit SQ TID REPLACED BY [facility] Last Admin: 11/29/17 05:58 Dose: 5,000 unit Lactobacillus Acidophilus (Bacid -) 1 tab PO DAILY REPLACED BY [facility] Last Admin: 11/28/17 11:30 Dose: 1 tab Multivitamins/Minerals/Vitamin C (Tab-A-Vit -) 1 tab PO DAILY REPLACED BY [facility] Last Admin: 11/28/17 11:31 Dose: 1 tab Zinc Sulfate (Orazinc -) 220 mg PO BID REPLACED BY [facility] Last Admin: 11/28/17 21:17 Dose: 220 mg - Objective Vital Signs: Vital Signs Temperature 99.5 F 11/29/17 06:00 Pulse Rate 91 H 11/29/17 06:00 Respiratory Rate 20 11/29/17 06:00 Blood Pressure 116/61 11/29/17 06:00 O2 Sat by Pulse Oximetry (%) 99 11/28/17 21:00 Constitutional: Yes: Well Nourished, No Distress, Calm Cardiovascular: Yes: Regular Rate and Rhythm Respiratory: Yes: Regular Gastrointestinal: Yes: Normal Bowel Sounds, Soft Wound/Incision: Yes: Dressing Dry and Intact Neurological: Yes: Alert, Pre-Existing Deficit Psychiatric: Yes: Alert Labs: CBC, BMP 11/29/17 06:20 11/29/17 06:20 INR, PTT INR 1.21 (0.83-1.09) H 11/17/17 16:30 Problem List - Problems (1) Anemia Assessment/Plan: -Iron deficient -Started on Ferrous sulfate -monitor trend -Stool Ob negative Code(s): D64.9 - ANEMIA, UNSPECIFIED (2) Contractures involving both knees Code(s): M24.561 - CONTRACTURE, RIGHT KNEE; M24.562 - CONTRACTURE, LEFT KNEE (3) Decubitus ulcer of buttock, unstageable Assessment/Plan: -Seen by ID and Plastic surgery -off IV abx -WC: Microbiology 11/25/17 15:30 Stool Clostridium difficile Antigen (SILVESTRE) - Final 11/25/17 15:30 Stool Clostridium difficile Toxin Assay - Final 11/17/17 22:20 Buttock - Right Gram Stain - Final 11/17/17 22:20 Buttock - Right Wound Culture - Final Non Lactose Fermenting Gnb Non Lactose Fermenting Gnb#2 Lactose Fermenting Neg Bacilli Group D Strep Or Entero Coccus 11/18/17 00:23 Decubiti Gram Stain - Final 11/18/17 00:23 Decubiti Wound Culture - Final Proteus Mirabilis Acinetobacter Baumannii/Haemol Escherichia Coli Enterococcus Faecalis 11/17/17 16:30 Blood - Peripheral Venous Blood Culture - Final NO GROWTH AFTER 5 DAYS INCUBATION 11/17/17 16:30 Blood - Peripheral Venous Blood Culture - Final NO GROWTH AFTER 5 DAYS INCUBATION 11/17/17 16:30 Groin Gram Stain - Final 11/17/17 16:30 Groin Wound Culture - Final Strep Agalactiae Group B Staphylococcus Coagulase Neg 11/18/17 16:45 Urine - Urine Diop Urine Culture - Final Providencia Stuartii -Prosource bid Code(s): L89.300 - PRESSURE ULCER OF UNSPECIFIED BUTTOCK, UNSTAGEABLE (4) Wound infection Assessment/Plan: -off IV abx -afebrile -WBC increased -ID on board -Added Zinc + Vit C Code(s): T14.8XXA - OTHER INJURY OF UNSPECIFIED BODY REGION, INITIAL ENCOUNTER; L08.9 - LOCAL INFECTION OF THE SKIN AND SUBCUTANEOUS TISSUE, UNSP (5) Hypoalbuminemia due to protein-calorie malnutrition Assessment/Plan: -Prosource BID Code(s): E46 - UNSPECIFIED PROTEIN-CALORIE MALNUTRITION (6) Leukocytosis Assessment/Plan: -consider hematology consult-called -Afebrile -monitor trend Code(s): D72.829 - ELEVATED WHITE BLOOD CELL COUNT, UNSPECIFIED Assessment/Plan see problem list
--- NOTE | 2017-11-29 11:26 | CONSULT ---
Consultation: REQUESTING PROVIDER: CONSULT REQUEST: We have been asked to medically evaluate this patient for ( Leukocytosis - Heme/onc consult). HISTORY OF PRESENT ILLNESS: Pt unable to provide history due to dementia. History obtained from the chart. Patient is a 72 year old woman , a new patient at [facility], was sent from [facility] for evaluation of draining wounds and decubiti ulcers. As per the EMR: Her daughter Kacey, Ms Munoz mentioned that she had her hip surgery about 8 years ago. She initially did well but had a fall the following spring with a back injury. She then had surgery on her back. Since that time, she has been non-ambulatory and now has leg contractures. Patient has been treated numerous times for infection in the hip, and has had debridements of sacral ulcers multiple times as per her daughter. However, the patient has only been receiving local wound care for months now. Per ED records: Per her PMD Dr Bennett at the [facility], it does not appear that she has been evaluated by infectious disease or orthopedics for at least 4 years. There are no recent labs or cultures available. She reported that she recently took over the care of Ms Munoz, so she does not know the entire history. However, she reported that the wound had a foul odor and was draining when the patient was evaluated. She felt that it needed evaluation and management by orthopedics and ID. Patient seen and examined at bed side this morning. ROS unable to obtain. As per RN, she has been having fowl smelling bowel movements 1-2 times/day, no blood noticed. Recent Travel: None PAST MEDICAL HISTORY: Dementia, chronic BLE contractures, h/o right hip replacement (?) with known infection. PAST SURGICAL HISTORY: Right hip replacement Social History: Smoking: unknown Alcohol: unknown Drugs: unknown Family History: Non-contributory Allergies No Known Allergies Allergy (Verified 11/17/17 14:52) REVIEW OF SYSTEMS: Unable to obtain PHYSICAL EXAMINATION Vital Signs - 24 hr 11/28/17 11/28/17 11/28/17 14:32 16:36 21:00 Temperature 99.3 F Pulse Rate 97 H Respiratory 20 18 18 Rate Blood Pressure 146/64 O2 Sat by Pulse 99 99 Oximetry (%) 11/28/17 11/29/17 11/29/17 22:00 01:08 06:00 Temperature 98.1 F 98.2 F 99.5 F Pulse Rate 95 H 89 91 H Respiratory 20 20 20 Rate Blood Pressure 145/66 102/58 116/61 O2 Sat by Pulse Oximetry (%) GENERAL: Elderly female, lying in bed, Awake, alert, and speaks few words, not oriented to time/place and person, in no acute distress. HEAD: Normal with no signs of trauma. EYES: No Pallor or icterus. EARS, NOSE, THROAT: Ears normal. Moist mucous membranes. NECK: Supple. LUNGS: B/L Breath sounds equal, No wheezes, and no crackles. No accessory muscle use. HEART: Regular rate and rhythm, normal S1 and S2 with systolic murmur. ABDOMEN: Soft, nontender, no organomegaly. MUSCULOSKELETAL: Contractures of the extremities. UPPER EXTREMITIES: 2+ pulses, warm, well-perfused. No cyanosis. No clubbing. Cap refill <2 seconds. No peripheral edema. Contractures + LOWER EXTREMITIES: 2+ pulses, warm, well-perfused. No calf tenderness. RLE edema +. Contractures +. Left great toe amputated NEUROLOGICAL: No facial droop. Speaks few words. Functional quadriplegia. Rest of the neuro exam difficult to perfrom. PSYCHIATRIC: Poor eye contact. Doesn't follow all commands. SKIN: Warm, dry, normal turgor, no rashes or lesions noted. Wounds: Right upper hip: 0.2 x 0.6 x 1.4 cm with serosangunious fluid. Left lower hip: Stage IV pressure ulcer 4 cm x 2 cm. Right groin: 2cm x 3 cm Right buttocks: Unstageable 10 cm x 15 cm x 4 cm fowl smelling drainage. Laboratory Results - last 24 hr 11/29/17 11/29/17 06:20 06:20 WBC 22.7 H RBC 3.67 Hgb 8.8 L Hct 28.3 L MCV 77.1 L MCH 24.0 L MCHC 31.1 L RDW 18.5 H Plt Count 603 H MPV 7.0 L Absolute Neuts (auto) 18.1 H Neutrophils % 79.7 Neutrophils % (Manual) 76.0 Band Neutrophils % 1.0 Lymphocytes % 10.8 Lymphocytes % (Manual) 13.0 D Monocytes % 7.4 Monocytes % (Manual) 9 Eosinophils % 1.3 Eosinophils % (Manual) 0.0 D Basophils % 0.8 Basophils % (Manual) 0.0 Myelocytes % (Man) 0 Promyelocytes % (Man) 0 Blast Cells % (Manual) 0 Nucleated RBC % 0 Metamyelocytes 0 Hypochromia 1+ Platelet Estimate Increased Polychromasia 1+ Poikilocytosis 0 Anisocytosis 1+ Microcytosis 1+ Macrocytosis 0 Target Cells 1+ Schistocytes 1+ Sodium 140 Potassium 3.5 Chloride 109 H Carbon Dioxide 22 Anion Gap 9 BUN 17 Creatinine 0.7 Creat Clearance w eGFR > 60 Random Glucose 101 Calcium 8.5 Total Bilirubin 0.3 AST 15 ALT 13 Alkaline Phosphatase 162 H Total Protein 6.4 Albumin 1.5 L Active Medications Generic Name Dose Route Start Last Admin Trade Name Freq PRN Reason Stop Dose Admin Acetaminophen 650 mg 11/18/17 09:45 11/28/17 23:16 Tylenol - PO 650 mg Q4H PRN Administration PAIN OR FEVER Amino Acids 30 ml 11/21/17 17:30 11/28/17 17:25 Prosource No Carb Liquid Pkt PO 30 ml BID@0800,1730 SHERLYN Administration Ascorbic Acid 500 mg 11/18/17 10:00 11/28/17 21:15 Vitamin C - PO 500 mg BID SHERLYN Administration Bacitracin 1 applic 11/27/17 11:00 11/28/17 11:37 Bacitracin - TP 1 applic DAILY SHERLYN Administration Ferrous Sulfate 300 mg 11/18/17 10:00 11/28/17 17:25 Feosol PO 300 mg BIDWM SHERLYN Administration Furosemide 20 mg 11/18/17 10:00 11/28/17 11:31 Lasix - PO 20 mg DAILY SHERLYN Administration Heparin Sodium (Porcine) 5,000 unit 11/17/17 22:00 11/29/17 05:58 Heparin - SQ 5,000 unit TID SHERYLN Administration Lactobacillus Acidophilus 1 tab 11/18/17 10:00 11/28/17 11:30 Bacid - PO 1 tab DAILY SHERLYN Administration Multivitamins/Minerals/Vitamin C 1 tab 11/18/17 10:00 11/28/17 11:31 Tab-A-Vit - PO 1 tab DAILY SHERLYN Administration Ondansetron HCl 4 mg 11/29/17 10:53 Zofran Injection IVPB Q6H PRN NAUSEA AND/OR VOMITING Zinc Sulfate 220 mg 11/18/17 10:00 11/28/17 21:17 Orazinc - PO 220 mg BID SHERLYN Administration Patient is a 72 year old woman , a new patient at [facility], was sent from [facility] for evaluation of draining wounds and decubiti ulcers. ASSESSMENT Leukocytosis Decubiti ulcers Thrombocytosis Chronic anemia Functional quadriplegia Chronic infection of prosthetic hip Advanced Dementia Contractures of the extremities PLAN: Persistent Leukocytosis: Acute vs chronic WBC on admission: 18.4 (baseline unknown-new patient at [facility]). Since then has been progressively rising. Today WBC count is 22.7 Has been treated for her infection-decubiti ulcers and wounds (still fowl smelling). Completed course of antibiotics Persistent leukocytosis could be due to infection vs reactive vs MPD. Less likely due to infection as patient is afebrile, blood cultures are negative, has completed antibiotics. Dr. Taylor has been consulted for the ulcers and recommended to treat conservatively, no debridement in the OR due to her condition Repeat WBC in AM. Will consider sending for bcr-abl Chronic Iron deficiency anemia H/H 8.8/28.3. On Ferrous sulphate. Etiology could be from GI, would need EGD/Colonoscopy. However, patient is not medically stable for the procedure, GI has been consulted Repeat CBC in AM. Thrombocytosis Platelet count: 745 on admission ---> today it is 603. Would recommend sending JO 2, Flow cytometry Repeat CBC in AM. Case discussed with Dr. Bermudez. Dispo: We will continue to follow the patient. Thank you for this consultative opportunity. Visit type - Emergency Visit Emergency Visit: Yes ED Registration Date: 11/17/17 Care time: The patient presented to the Emergency Department on the above date and was hospitalized for further evaluation of their emergent condition. - New Patient This patient is new to me today: Yes Date on this admission: 11/29/17 - Critical Care Critical Care patient: No
[2017-11-29] MEDS ORDERED: ONDANSETRON 4 MG TABLET PO PRN (13:08)
[2017-11-29] MEDS: FUROSEMIDE 20 MG TABLET (FP) PO SCH (13:13)
[2017-11-29] MEDS: ZINC SULFATE 220 MG CAPSULE (FP) PO SCH ×2 (13:13→21:30)
[2017-11-29] MEDS: BACITRACIN 15 GM TUBE TOPICAL OINTMENT TP SCH (13:13)
[2017-11-29] MEDS: AMINO ACIDS/PROTEIN HYDROLYS 30 ML LIQUID.PKT PO SCH ×2 (13:13→17:52)
[2017-11-29] MEDS: ASCORBIC ACID 500 MG TABLET (FP) PO SCH ×2 (13:14→21:30)
--- NOTE | 2017-11-29 16:12 | PN ---
Teaching Attending Note Name of Resident: Dimple Ignacio ATTENDING PHYSICIAN STATEMENT I saw and evaluated the patient. I reviewed the resident's note and discussed the case with the resident. I agree with the resident's findings and plan as documented. SUBJECTIVE: Patient seen and examined Multiple chronic decubiti and likely infected prosthetic hip joint with drainage In addition anemia- chronic disease and Fe++ deficiency Last Vital Signs Temp Pulse Resp BP Pulse Ox 98.8 F 88 16 91/46 99 11/29/17 13:49 11/29/17 13:49 11/29/17 13:49 11/29/17 13:49 11/28/17 21:00 HEENT: LORENZO, EOM Intact Oropharynx: No thrush, No mucositis Cor: RSR, No murmurs, No gallops Lungs: Clear to P&A Abd: Soft, Normal bowel sounds, No organomegaly Ext:LE edema , Contracted Sacral decubiti CBC, BMP 11/29/17 06:20 11/29/17 06:20 Abnormal Lab Results 11/29/17 11/29/17 06:20 06:20 WBC 22.7 H Hgb 8.8 L Hct 28.3 L MCV 77.1 L MCH 24.0 L MCHC 31.1 L RDW 18.5 H Plt Count 603 H MPV 7.0 L Absolute Neuts (auto) 18.1 H Chloride 109 H Alkaline Phosphatase 162 H Albumin 1.5 L Microbiology 11/25/17 15:30 Stool Clostridium difficile Antigen (SILVESTRE) - Final 11/25/17 15:30 Stool Clostridium difficile Toxin Assay - Final 11/17/17 22:20 Buttock - Right Gram Stain - Final 11/17/17 22:20 Buttock - Right Wound Culture - Final Non Lactose Fermenting Gnb Non Lactose Fermenting Gnb#2 Lactose Fermenting Neg Bacilli Group D Strep Or Entero Coccus 11/18/17 00:23 Decubiti Gram Stain - Final 11/18/17 00:23 Decubiti Wound Culture - Final Proteus Mirabilis Acinetobacter Baumannii/Haemol Escherichia Coli Enterococcus Faecalis 11/17/17 16:30 Blood - Peripheral Venous Blood Culture - Final NO GROWTH AFTER 5 DAYS INCUBATION 11/17/17 16:30 Blood - Peripheral Venous Blood Culture - Final NO GROWTH AFTER 5 DAYS INCUBATION 11/17/17 16:30 Groin Gram Stain - Final 11/17/17 16:30 Groin Wound Culture - Final Strep Agalactiae Group B Staphylococcus Coagulase Neg 11/18/17 16:45 Urine - Urine Diop Urine Culture - Final Providencia Stuartii Current Medications Generic Name Dose Route Start Last Admin Trade Name Freq PRN Reason Stop Dose Admin Acetaminophen 650 mg 11/18/17 09:45 11/28/17 23:16 Tylenol - PO 650 mg Q4H PRN Administration PAIN OR FEVER Amino Acids 30 ml 11/21/17 17:30 11/29/17 13:13 Prosource No Carb Liquid Pkt PO Not Given BID@0800,1730 [facility] Ascorbic Acid 500 mg 11/18/17 10:00 11/29/17 13:14 Vitamin C - PO Not Given BID SHERLYN Bacitracin 1 applic 11/27/17 11:00 11/29/17 13:13 Bacitracin - TP 1 applic DAILY SHERLYN Administration Ferrous Sulfate 300 mg 11/18/17 10:00 11/28/17 17:25 Feosol PO 300 mg BIDWM SHERLYN Administration Furosemide 20 mg 11/18/17 10:00 11/29/17 13:13 Lasix - PO 20 mg DAILY SHERLYN Administration Heparin Sodium (Porcine) 5,000 unit 11/17/17 22:00 11/29/17 13:16 Heparin - SQ 5,000 unit TID SHERLYN Administration Lactobacillus Acidophilus 1 tab 11/18/17 10:00 11/28/17 11:30 Bacid - PO 1 tab DAILY SHERLYN Administration Multivitamins/Minerals/Vitamin C 1 tab 11/18/17 10:00 11/28/17 11:31 Tab-A-Vit - PO 1 tab DAILY SHERLYN Administration Ondansetron HCl 4 mg 11/29/17 13:08 Zofran - PO Q6H PRN NAUSEA AND/OR VOMITING Zinc Sulfate 220 mg 11/18/17 10:00 11/29/17 13:13 Orazinc - PO Not Given BID [facility] Impression: Leucocytosis, thrombocytosis, could certainly be reactive in nature. Old records from [place] would be of benefit . In absence of old records to document chronicity of leucocytosis, and thrombocytosis, can do JO-2,BCR-ABL by PCR, flow cytometry. This can be done as an outpatient from [place] since likely no intervention would be required at this level of WBC or platelet count. The anemia is likely multifactorial with serum Fe++-10 and TIBC of 90 reflecting likely a mixed component of iron deficiency and chronic disease. As already documented GI intervention is not being contemplated . OBJECTIVE: ASSESSMENT AND PLAN:
[2017-11-29] MEDS: FERROUS SO4 300 MG/5 ML ORAL SOLN UNIT DOSE CUPS PO SCH ×2 (17:52→17:53)
[2017-11-29] MEDS: MULTIVITAMINS (DAILY MVI) TABLET (FP) PO SCH (17:52)
[2017-11-29] MEDS: LACTOBACILLUS ACIDOPHILUS 1 TABLET PO SCH (17:52)
[2017-11-29] MEDS: ACETAMINOPHEN 325 MG TABLET (FP) PO PRN (21:30)
[2017-11-30] MEDS: HEPARIN NA (PORCINE) 5,000 UNITS/ML 1ML VIAL SQ SCH ×3 (05:37→21:30)
[2017-11-30 06:55] LABS: BASO % 0.3 % (0-2.0); HEMATOCRIT 29.3 % (32.4-45.2); HEMOGLOBIN 9.1 GM/dL (10.7-15.3); LYMPH % 13.2 % (8-40); MCH 24.2 pg (25.7-33.7); MCHC 31.2 g/dl (32.0-36.0); MEAN CELL VOLUME 77.6 fl (80-96); MEAN PLT VOLUME 6.6 fl (7.5-11.1); MONO % 6.2 % (3.8-10.2); NEUT % 79.3 % (42.8-82.8); PLATELET COUNT 691 K/MM3 (134-434); RBC 3.78 M/mm3 (3.60-5.2); RDW 18.3 % (11.6-15.6); WHITE BLOOD COUNT 20.6 K/mm3 (4.0-10.0)
[2017-11-30 09:22] LABS: BILIRUBIN,TOTAL 0.2 mg/dL (0.2-1); CHLORIDE 114 mmol/L (98-107); CREATININE 0.6 mg/dL (0.55-1.3); SODIUM 146 mmol/L (136-145); TOT PROT 6.7 g/dl (6.4-8.2)
[2017-11-30 10:01] LABS: ANISOCYTOSIS 1+; MACROCYTOSIS 0; PLATELET ESTIMATE INCREASED
[2017-11-30] MEDS: FERROUS SO4 300 MG/5 ML ORAL SOLN UNIT DOSE CUPS PO SCH ×2 (10:25→17:55)
[2017-11-30] MEDS: AMINO ACIDS/PROTEIN HYDROLYS 30 ML LIQUID.PKT PO SCH ×2 (10:29→17:55)
[2017-11-30] MEDS: BACITRACIN 15 GM TUBE TOPICAL OINTMENT TP SCH (10:29)
[2017-11-30] MEDS: LACTOBACILLUS ACIDOPHILUS 1 TABLET PO SCH (10:29)
[2017-11-30] MEDS: FUROSEMIDE 20 MG TABLET (FP) PO SCH (10:30)
[2017-11-30] MEDS: ZINC SULFATE 220 MG CAPSULE (FP) PO SCH ×2 (10:30→21:30)
[2017-11-30] MEDS: ASCORBIC ACID 500 MG TABLET (FP) PO SCH ×2 (10:31→21:31)
[2017-11-30] MEDS: MULTIVITAMINS (DAILY MVI) TABLET (FP) PO SCH (10:31)
[2017-11-30 12:23] LABS: BLOOD UREA NITROGEN 17 mg/dL (7-18); GLUCOSE,RANDOM 87 mg/dL (74-106); POTASSIUM 3.9 mmol/L (3.5-5.1)
[2017-11-30 12:24] LABS: ALBUMIN 0.7 g/dl (3.4-5.0); ALK PHOS 186 U/L (45-117); ANION GAP 17 MMOL/L (8-16); CALCIUM 8.5 mg/dL (8.5-10.1); CO2 15 mmol/L (21-32); SGOT/AST 25 U/L (15-37); SGPT/ALT 20 U/L (13-61)
--- NOTE | 2017-11-30 15:38 | PN ---
Progress Note, Physician Chief Complaint: sepsis Infected decubitous ulcers History of Present Illness: nad Severely contracted several decubitus ulcers, ranging from stage 2-4 Seen by ID Seen by Surgery Wound consult observing off IV abx UC/BC/WC: Microbiology 11/17/17 16:30 Groin Gram Stain - Final 11/17/17 16:30 Groin Wound Culture - Final Strep Agalactiae Group B Staphylococcus Coagulase Neg 11/17/17 22:20 Buttock - Right Gram Stain - Final 11/17/17 22:20 Buttock - Right Wound Culture - Preliminary Non Lactose Fermenting Gnb Non Lactose Fermenting Gnb#2 Lactose Fermenting Neg Bacilli Group D Strep Or Entero Coccus 11/18/17 00:23 Decubiti Gram Stain - Final 11/18/17 00:23 Decubiti Wound Culture - Preliminary Non Lactose Fermenting Gnb Non Lactose Fermenting Gnb#2 Lactose Fermenting Neg Bacilli Group D Strep Or Entero Coccus 11/18/17 16:45 Urine - Urine Diop Urine Culture - Final Providencia Stuartii 11/17/17 16:30 Blood - Peripheral Venous Blood Culture - Preliminary NO GROWTH OBTAINED AFTER 72 HOURS, INCUBATION TO CONTINUE FOR 2 DAYS. 11/17/17 16:30 Blood - Peripheral Venous Blood Culture - Preliminary NO GROWTH OBTAINED AFTER 72 HOURS, INCUBATION TO CONTINUE FOR 2 DAYS. leukocytosis without any fevers - Current Medication List Current Medications: Active Medications Acetaminophen (Tylenol -) 650 mg PO Q4H PRN PRN Reason: PAIN OR FEVER Last Admin: 11/29/17 21:30 Dose: 650 mg Amino Acids (Prosource No Carb Liquid Pkt) 30 ml PO BID@0800,1730 [facility] Last Admin: 11/30/17 10:29 Dose: 30 ml Ascorbic Acid (Vitamin C -) 500 mg PO BID [facility] Last Admin: 11/30/17 10:31 Dose: 500 mg Bacitracin (Bacitracin -) 1 applic TP DAILY [facility] Last Admin: 11/30/17 10:29 Dose: 1 applic Ferrous Sulfate (Feosol) 300 mg PO BIDWM [facility] Last Admin: 11/30/17 10:25 Dose: 300 mg Furosemide (Lasix -) 20 mg PO DAILY [facility] Last Admin: 11/30/17 10:30 Dose: 20 mg Heparin Sodium (Porcine) (Heparin -) 5,000 unit SQ TID [facility] Last Admin: 11/30/17 05:37 Dose: 5,000 unit Lactobacillus Acidophilus (Bacid -) 1 tab PO DAILY [facility] Last Admin: 11/30/17 10:29 Dose: 1 tab Multivitamins/Minerals/Vitamin C (Tab-A-Vit -) 1 tab PO DAILY [facility] Last Admin: 11/30/17 10:31 Dose: 1 tab Ondansetron HCl (Zofran -) 4 mg PO Q6H PRN PRN Reason: NAUSEA AND/OR VOMITING Zinc Sulfate (Orazinc -) 220 mg PO BID [facility] Last Admin: 11/30/17 10:30 Dose: 220 mg - Objective Vital Signs: Vital Signs Temperature 99.3 F 11/30/17 14:59 Pulse Rate 98 H 11/30/17 14:59 Respiratory Rate 18 11/30/17 14:59 Blood Pressure 124/72 11/30/17 14:59 O2 Sat by Pulse Oximetry (%) 98 11/29/17 21:00 Constitutional: Yes: Well Nourished, No Distress, Calm Cardiovascular: Yes: Regular Rate and Rhythm Respiratory: Yes: Regular Gastrointestinal: Yes: Normal Bowel Sounds, Soft, Abdomen, Obese Musculoskeletal: Yes: Other (severly contracted) Neurological: Yes: Pre-Existing Deficit Labs: CBC, BMP 11/30/17 06:25 11/30/17 06:25 INR, PTT INR 1.21 (0.83-1.09) H 11/17/17 16:30 Problem List - Problems (1) Anemia Assessment/Plan: -Iron deficient -Started on Ferrous sulfate -monitor trend -Stool Ob negative Code(s): D64.9 - ANEMIA, UNSPECIFIED (2) Contractures involving both knees Code(s): M24.561 - CONTRACTURE, RIGHT KNEE; M24.562 - CONTRACTURE, LEFT KNEE (3) Decubitus ulcer of buttock, unstageable Assessment/Plan: -Seen by ID and Plastic surgery -off IV abx -WC: Microbiology 11/25/17 15:30 Stool Clostridium difficile Antigen (SILVESTRE) - Final 11/25/17 15:30 Stool Clostridium difficile Toxin Assay - Final 11/17/17 22:20 Buttock - Right Gram Stain - Final 11/17/17 22:20 Buttock - Right Wound Culture - Final Non Lactose Fermenting Gnb Non Lactose Fermenting Gnb#2 Lactose Fermenting Neg Bacilli Group D Strep Or Entero Coccus 11/18/17 00:23 Decubiti Gram Stain - Final 11/18/17 00:23 Decubiti Wound Culture - Final Proteus Mirabilis Acinetobacter Baumannii/Haemol Escherichia Coli Enterococcus Faecalis 11/17/17 16:30 Blood - Peripheral Venous Blood Culture - Final NO GROWTH AFTER 5 DAYS INCUBATION 11/17/17 16:30 Blood - Peripheral Venous Blood Culture - Final NO GROWTH AFTER 5 DAYS INCUBATION 11/17/17 16:30 Groin Gram Stain - Final 11/17/17 16:30 Groin Wound Culture - Final Strep Agalactiae Group B Staphylococcus Coagulase Neg 11/18/17 16:45 Urine - Urine Diop Urine Culture - Final Providencia Stuartii -Prosource bid Code(s): L89.300 - PRESSURE ULCER OF UNSPECIFIED BUTTOCK, UNSTAGEABLE (4) Wound infection Assessment/Plan: -off IV abx -afebrile -WBC increased -ID on board -Added Zinc + Vit C Code(s): T14.8XXA - OTHER INJURY OF UNSPECIFIED BODY REGION, INITIAL ENCOUNTER; L08.9 - LOCAL INFECTION OF THE SKIN AND SUBCUTANEOUS TISSUE, UNSP (5) Hypoalbuminemia due to protein-calorie malnutrition Assessment/Plan: -Prosource BID Code(s): E46 - UNSPECIFIED PROTEIN-CALORIE MALNUTRITION (6) Leukocytosis Assessment/Plan: -consider hematology consult-called -Afebrile -monitor trend Code(s): D72.829 - ELEVATED WHITE BLOOD CELL COUNT, UNSPECIFIED Assessment/Plan see problem list Spoke to daughter over the phone who is agreeable for pt returning to [facility]
--- NOTE | 2017-11-30 15:56 | DS ---
Physical Examination Vital Signs: Vital Signs Temperature 99.3 F 11/30/17 14:59 Pulse Rate 98 H 11/30/17 14:59 Respiratory Rate 18 11/30/17 14:59 Blood Pressure 124/72 11/30/17 14:59 O2 Sat by Pulse Oximetry (%) 98 11/29/17 21:00 Findings/Remarks: This is a 72 y/o woman from [facility] PMH of dementia, chronic BLE contractures, h/o right hip replacement (?) with known infection. Who presents to the ED via ambulance for evaluation of decubitus ulcers and draining wounds. Per patient's daughter who is at bedside, she was sent from [facility] for management of a right hip wound and large sacral ulcer. Per her daughter Kacey, Ms Munoz had her hip surgery about 8 years ago. She initially did well but had a fall the following spring with a back injury. She then had surgery on her back. Since that time, she has been non-ambulatory and now has leg contractures. The daughter reports that the patient has been treated numerous times for infection in the hip, and has had debridements of sacral ulcers multiple times. However, per the daughter, the patient has only been receiving local wound care for months now. Per ED records: Per her PMD Dr Bennett at the [facility], it does not appear that she has been evaluated by infectious disease or orthopedics for at least 4 years. There are no recent labs or cultures available. She reported that she recently took over the care of Ms Munoz, so she does not know the entire history. However, she reported that the wound had a foul odor and was draining when the patient was evaluated. She felt that it needed evaluation and management by orthopedics and ID. Constitutional: Yes: Well Nourished, No Distress, Calm Cardiovascular: Yes: Regular Rate and Rhythm Respiratory: Yes: Regular Gastrointestinal: Yes: Normal Bowel Sounds, Soft, Abdomen, Obese Musculoskeletal: Yes: Other (severely contracted) Edema: No Peripheral Pulses WNL: Yes Neurological: Yes: Pre-Existing Deficit Labs: CBC, BMP 11/30/17 06:25 11/30/17 06:25 Discharge Summary Reason For Visit: OPEN WOUND OF HIP AND THIGH WITH COMPLICATION Current Active Problems Anemia (Acute) Chronic infection of prosthetic hip (Acute) Contractures involving both knees (Acute) Decubitus ulcer of buttock, unstageable (Acute) Dementia (Acute) Electrolyte abnormality (Acute) Fistula (Acute) Functional quadriplegia (Acute) Hypoalbuminemia due to protein-calorie malnutrition (Acute) Iron deficiency anemia (Acute) Leukocytosis (Acute) Microcytic hypochromic anemia (Acute) Wound infection (Acute) Wound, open, hip or thigh with complication (Acute) Hospital Course: Laboratory Last Values WBC 20.6 K/mm3 (4.0-10.0) H 11/30/17 06:25 RBC 3.78 M/mm3 (3.60-5.2) 11/30/17 06:25 Hgb 9.1 GM/dL (10.7-15.3) L 11/30/17 06:25 Hct 29.3 % (32.4-45.2) L 11/30/17 06:25 MCV 77.6 fl (80-96) L 11/30/17 06:25 MCH 24.2 pg (25.7-33.7) L 11/30/17 06:25 MCHC 31.2 g/dl (32.0-36.0) L 11/30/17 06:25 RDW 18.3 % (11.6-15.6) H 11/30/17 06:25 Plt Count 691 K/MM3 (134-434) H 11/30/17 06:25 MPV 6.6 fl (7.5-11.1) L 11/30/17 06:25 Absolute Neuts (auto) 16.3 K/mm3 (1.5-8.0) H 11/30/17 06:25 Neutrophils % 79.3 % (42.8-82.8) 11/30/17 06:25 Neutrophils % (Manual) 77.8 % (42.8-82.8) 11/30/17 06:25 Band Neutrophils % 1.0 % 11/30/17 06:25 Lymphocytes % 13.2 % (8-40) D 11/30/17 06:25 Lymphocytes % (Manual) 13.1 % (8-40) 11/30/17 06:25 Monocytes % 6.2 % (3.8-10.2) 11/30/17 06:25 Monocytes % (Manual) 4 % (3.8-10.2) 11/30/17 06:25 Eosinophils % 1.0 % (0-4.5) 11/30/17 06:25 Eosinophils % (Manual) 1.0 % (0-4.5) D 11/30/17 06:25 Basophils % 0.3 % (0-2.0) 11/30/17 06:25 Basophils % (Manual) 1.0 % (0-2.0) D 11/30/17 06:25 Myelocytes % (Man) 0 % (0-2) 11/30/17 06:25 Promyelocytes % (Man) 0 % (0-2) 11/30/17 06:25 Blast Cells % (Manual) 0 % (0-0) 11/30/17 06:25 Nucleated RBC % 0 % (0-0) 11/30/17 06:25 Metamyelocytes 0 % (0-2) 11/30/17 06:25 Hypochromia 1+ 11/30/17 06:25 Platelet Estimate Increased 11/30/17 06:25 Polychromasia 0 11/30/17 06:25 Poikilocytosis 0 11/30/17 06:25 Anisocytosis 1+ 11/30/17 06:25 Microcytosis 1+ 11/30/17 06:25 Macrocytosis 0 11/30/17 06:25 Target Cells 1+ 11/29/17 06:20 Schistocytes 1+ 11/29/17 06:20 PT with INR 13.70 SEC (9.7-13.0) H 11/17/17 16:30 INR 1.21 (0.83-1.09) H 11/17/17 16:30 PTT (Actin FS) 31.3 SECONDS (25.2-36.5) 11/25/17 17:15 Sodium 146 mmol/L (136-145) H 11/30/17 06:25 Potassium 3.9 mmol/L (3.5-5.1) 11/30/17 06:25 Chloride 114 mmol/L (98-107) H 11/30/17 06:25 Carbon Dioxide 15 mmol/L (21-32) L 11/30/17 06:25 Anion Gap 17 MMOL/L (8-16) H 11/30/17 06:25 BUN 17 mg/dL (7-18) 11/30/17 06:25 Creatinine 0.6 mg/dL (0.55-1.3) 11/30/17 06:25 Creat Clearance w eGFR > 60 (>60) 11/30/17 06:25 POC Glucometer 88 UNITS (80-120) 11/30/17 05:43 Random Glucose 87 mg/dL (74-106) 11/30/17 06:25 Hemoglobin A1c % 5.9 % (4.8-6.0) 11/18/17 08:00 Lactic Acid 1.6 mmol/L (0.0-2.0) 11/17/17 16:30 Calcium 8.5 mg/dL (8.5-10.1) 11/30/17 06:25 Magnesium 1.9 mg/dL (1.8-2.4) 11/25/17 08:05 Iron 10 ug/dL (27-139) L 11/18/17 10:40 TIBC 90 ug/dL (250-450) L 11/18/17 10:40 Iron Saturation 11 % (15-55) L 11/18/17 10:40 Ferritin 399.1 ng/ml (6.9-282.5) H 11/18/17 10:40 Total Bilirubin 0.2 mg/dL (0.2-1) 11/30/17 06:25 AST 25 U/L (15-37) 11/30/17 06:25 ALT 20 U/L (13-61) 11/30/17 06:25 Alkaline Phosphatase 186 U/L (45-117) H 11/30/17 06:25 Creatine Kinase 45 IU/L (26-192) 11/17/17 18:14 Troponin I < 0.02 ng/ml (0.00-0.05) 11/17/17 18:14 Total Protein 6.7 g/dl (6.4-8.2) 11/30/17 06:25 Albumin 0.7 g/dl (3.4-5.0) L 11/30/17 06:25 Vitamin B12 1206 pg/ml (180-914) H 11/18/17 10:40 Serum Folate 49 ng/ml (3.1-17.5) H 11/18/17 10:40 TSH 1.44 uIU/ml (0.358-3.74) 09/07/18 10:40 Free T4 1.49 ng/dl (0.76-1.46) H 11/18/17 10:40 Urine Color Straw 11/18/17 16:45 Urine Appearance Turbid 11/18/17 16:45 Urine pH 5.0 (5.0-8.0) 11/18/17 16:45 Ur Specific [place] 1.024 (1.001-1.035) 11/18/17 16:45 Urine Protein Negative (NEGATIVE) 11/18/17 16:45 Urine Glucose (UA) Negative (NEGATIVE) 11/18/17 16:45 Urine Ketones Negative (NEGATIVE) 11/18/17 16:45 Urine Blood Negative (NEGATIVE) 11/18/17 16:45 Urine Nitrite Negative (NEGATIVE) 11/18/17 16:45 Urine Bilirubin Negative (<2.0 mg/dL) 11/18/17 16:45 Urine Urobilinogen Negative mg/dL (0.2-1.0) 11/18/17 16:45 Ur Leukocyte Esterase 3+ (NEGATIVE) H 11/18/17 16:45 Urine WBC (Auto) 1419 /hpf (3-5) 11/18/17 16:45 Urine RBC (Auto) 1 /hpf (0-3) 11/18/17 16:45 Ur Epithelial Cells Rare /HPF (FEW) 11/18/17 16:45 Amorphous Urates Many /hpf (NONE SEEN) 11/18/17 16:45 Stool Occult Blood Negative (NEGATIVE) 11/24/17 06:30 Microbiology 11/25/17 15:30 Stool Clostridium difficile Antigen (SILVESTRE) - Final 11/25/17 15:30 Stool Clostridium difficile Toxin Assay - Final 11/17/17 22:20 Buttock - Right Gram Stain - Final 11/17/17 22:20 Buttock - Right Wound Culture - Final Non Lactose Fermenting Gnb Non Lactose Fermenting Gnb#2 Lactose Fermenting Neg Bacilli Group D Strep Or Entero Coccus 11/18/17 00:23 Decubiti Gram Stain - Final 11/18/17 00:23 Decubiti Wound Culture - Final Proteus Mirabilis Acinetobacter Baumannii/Haemol Escherichia Coli Enterococcus Faecalis 11/17/17 16:30 Blood - Peripheral Venous Blood Culture - Final NO GROWTH AFTER 5 DAYS INCUBATION 11/17/17 16:30 Blood - Peripheral Venous Blood Culture - Final NO GROWTH AFTER 5 DAYS INCUBATION 11/17/17 16:30 Groin Gram Stain - Final 11/17/17 16:30 Groin Wound Culture - Final Strep Agalactiae Group B Staphylococcus Coagulase Neg 11/18/17 16:45 Urine - Urine Diop Urine Culture - Final Providencia Stuartii Condition: Fair - Instructions Referrals: Jaron Rosario MD [Primary Care Provider] - Disposition: [facility] - Home Medications Comprehensive Discharge Medication List: Ambulatory Orders Fentanyl 1 each TD DAILY 11/17/17 Ferrous Sulfate [Ferosul] 220 mg PO DAILY 11/17/17 Furosemide [Lasix] 20 mg PO DAILY 11/17/17 Lactobacillus Acidophilus [Acidophilus] 1 each PO BID 11/17/17 Acetaminophen [Tylenol .Regular Strength -] 650 mg PO Q4H PRN tablet 11/28/17 Amino Acids/Protein Hydrolys [Prosource No Carb Liquid Pkt] 30 ml PO BID@0800, 1730 packet 11/28/17 Ascorbic Acid [Vitamin C -] 500 mg PO BID tablet 11/28/17 Bacitracin - [Bacitracin Topical Ointment -] 1 applic TP DAILY tube 11/28/17 Heparin - 5,000 unit SQ TID vial 11/28/17 Lactobacillus Acidophilus [Bacid -] 1 tab PO DAILY tab 11/28/17 Multivitamins [Multivit ([facility] Formulary)] 1 tab PO DAILY tab 11/28/17 Zinc Sulfate [Orazinc -] 220 mg PO BID capsule 11/28/17 Ondansetron [Zofran -] 4 mg PO Q6H PRN tablet 11/30/17
[2017-12-01] MEDS: HEPARIN NA (PORCINE) 5,000 UNITS/ML 1ML VIAL SQ SCH ×3 (05:53→21:08)
[2017-12-01 07:56] LABS: BASO % 1.7 % (0-2.0); EOS % 1.5 % (0-4.5); HEMATOCRIT 27.9 % (32.4-45.2); HEMOGLOBIN 8.6 GM/dL (10.7-15.3); MCHC 30.8 g/dl (32.0-36.0); MEAN PLT VOLUME 6.6 fl (7.5-11.1); MONO % 6.5 % (3.8-10.2); NEUT % 77.3 % (42.8-82.8); PLATELET COUNT 658 K/MM3 (134-434); RBC 3.58 M/mm3 (3.60-5.2); RDW 18.9 % (11.6-15.6); WHITE BLOOD COUNT 20.7 K/mm3 (4.0-10.0)
[2017-12-01 08:04] LABS: ALBUMIN 1.5 g/dl (3.4-5.0); ALK PHOS 165 U/L (45-117); ANION GAP 7 MMOL/L (8-16); BILIRUBIN,TOTAL 0.2 mg/dL (0.2-1); BLOOD UREA NITROGEN 20 mg/dL (7-18); CALCIUM 8.7 mg/dL (8.5-10.1); CHLORIDE 115 mmol/L (98-107); CO2 24 mmol/L (21-32); CREATININE 0.7 mg/dL (0.55-1.3); GLUCOSE,RANDOM 97 mg/dL (74-106); POTASSIUM 3.4 mmol/L (3.5-5.1); SGOT/AST 17 U/L (15-37); SGPT/ALT 20 U/L (13-61); SODIUM 146 mmol/L (136-145); TOT PROT 6.3 g/dl (6.4-8.2)
[2017-12-01] MEDS: FERROUS SO4 300 MG/5 ML ORAL SOLN UNIT DOSE CUPS PO SCH ×2 (08:55→18:14)
[2017-12-01] MEDS: AMINO ACIDS/PROTEIN HYDROLYS 30 ML LIQUID.PKT PO SCH ×2 (08:55→18:14)
[2017-12-01] MEDS: FUROSEMIDE 20 MG TABLET (FP) PO SCH (09:49)
[2017-12-01] MEDS: ASCORBIC ACID 500 MG TABLET (FP) PO SCH ×2 (09:50→21:08)
[2017-12-01] MEDS: MULTIVITAMINS (DAILY MVI) TABLET (FP) PO SCH (09:50)
[2017-12-01] MEDS: BACITRACIN 15 GM TUBE TOPICAL OINTMENT TP SCH (09:50)
[2017-12-01] MEDS: ZINC SULFATE 220 MG CAPSULE (FP) PO SCH ×2 (09:50→21:08)
[2017-12-01] MEDS: LACTOBACILLUS ACIDOPHILUS 1 TABLET PO SCH (09:50)
[2017-12-01 11:19] LABS: ANISOCYTOSIS 1+; MACROCYTOSIS 0; PLATELET ESTIMATE INCREASED
--- NOTE | 2017-12-01 11:34 | PN ---
Progress Note, Physician Chief Complaint: patient seen and examined awaiting bed at [facility] no fever - Current Medication List Current Medications: Active Medications Acetaminophen (Tylenol -) 650 mg PO Q4H PRN PRN Reason: PAIN OR FEVER Last Admin: 11/29/17 21:30 Dose: 650 mg Amino Acids (Prosource No Carb Liquid Pkt) 30 ml PO BID@0800,1730 [facility] Last Admin: 12/01/17 08:55 Dose: 30 ml Ascorbic Acid (Vitamin C -) 500 mg PO BID [facility] Last Admin: 12/01/17 09:50 Dose: 500 mg Bacitracin (Bacitracin -) 1 applic TP DAILY [facility] Last Admin: 12/01/17 09:50 Dose: 1 applic Ferrous Sulfate (Feosol) 300 mg PO BIDWM [facility] Last Admin: 12/01/17 08:55 Dose: 300 mg Furosemide (Lasix -) 20 mg PO DAILY [facility] Last Admin: 12/01/17 09:49 Dose: 20 mg Heparin Sodium (Porcine) (Heparin -) 5,000 unit SQ TID [facility] Last Admin: 12/01/17 05:53 Dose: 5,000 unit Lactobacillus Acidophilus (Bacid -) 1 tab PO DAILY [facility] Last Admin: 12/01/17 09:50 Dose: 1 tab Multivitamins/Minerals/Vitamin C (Tab-A-Vit -) 1 tab PO DAILY [facility] Last Admin: 12/01/17 09:50 Dose: 1 tab Ondansetron HCl (Zofran -) 4 mg PO Q6H PRN PRN Reason: NAUSEA AND/OR VOMITING Zinc Sulfate (Orazinc -) 220 mg PO BID [facility] Last Admin: 12/01/17 09:50 Dose: 220 mg - Objective Vital Signs: Vital Signs Temperature 98.4 F 12/01/17 10:06 Pulse Rate 83 12/01/17 10:06 Respiratory Rate 19 12/01/17 10:06 Blood Pressure 119/64 12/01/17 10:06 O2 Sat by Pulse Oximetry (%) 98 11/30/17 21:00 Cardiovascular: Yes: Regular Rate and Rhythm, S1, S2 Respiratory: Yes: CTA Bilaterally, Diminished Gastrointestinal: Yes: Normal Bowel Sounds, Soft Extremities: Yes: Other (contracted) Labs: CBC, BMP 12/01/17 07:20 12/01/17 07:25 INR, PTT INR 1.21 (0.83-1.09) H 11/17/17 16:30 Problem List - Problems (1) Leukocytosis Assessment/Plan: afebrile today off abx observe presistent leukocytosis- heme consult noted outpatient work up ID follow up noted isolation Microbiology 11/18/17 16:45 Urine - Urine Diop Urine Culture - Final Providencia Stuartii 11/18/17 00:23 Decubiti Gram Stain - Final 11/18/17 00:23 Decubiti Wound Culture - Preliminary Proteus Mirabilis Acinetobacter Baumannii/Haemol Escherichia Coli Enterococcus Faecalis Microbiology 11/25/17 15:30 Stool Clostridium difficile Antigen (SILVESTRE) - Final 11/25/17 15:30 Stool Clostridium difficile Toxin Assay - Final 11/18/17 16:45 Urine - Urine Diop Urine Culture - Final Providencia Stuartii 11/18/17 00:23 Decubiti Gram Stain - Final 11/18/17 00:23 Decubiti Wound Culture - Final Proteus Mirabilis Acinetobacter Baumannii/Haemol Escherichia Coli Enterococcus Faecalis 11/17/17 22:20 Buttock - Right Gram Stain - Final 11/17/17 22:20 Buttock - Right Wound Culture - Final Non Lactose Fermenting Gnb Non Lactose Fermenting Gnb#2 Lactose Fermenting Neg Bacilli Group D Strep Or Entero Coccus 11/17/17 16:30 Groin Gram Stain - Final 11/17/17 16:30 Groin Wound Culture - Final Strep Agalactiae Group B Staphylococcus Coagulase Neg 11/17/17 16:30 Blood - Peripheral Venous Blood Culture - Final NO GROWTH AFTER 5 DAYS INCUBATION 11/17/17 16:30 Blood - Peripheral Venous Blood Culture - Final NO GROWTH AFTER 5 DAYS INCUBATION Code(s): D72.829 - ELEVATED WHITE BLOOD CELL COUNT, UNSPECIFIED (2) Decubitus ulcer of buttock, unstageable Assessment/Plan: dr patel on board NS and betadine zinc sulfate. MVT patient DNR Code(s): L89.300 - PRESSURE ULCER OF UNSPECIFIED BUTTOCK, UNSTAGEABLE (3) Hypoalbuminemia due to protein-calorie malnutrition Assessment/Plan: proscource Code(s): E46 - UNSPECIFIED PROTEIN-CALORIE MALNUTRITION (4) Anemia Assessment/Plan: iron and vitamin C Code(s): D64.9 - ANEMIA, UNSPECIFIED (5) Electrolyte abnormality Assessment/Plan: potassium ordered- repleted today recheck in AM check magnesium Code(s): E87.8 - OTH DISORDERS OF ELECTROLYTE AND FLUID BALANCE, NEC Assessment/Plan awaiting snf bed placement
[2017-12-01] MEDS ORDERED: POTASSIUM CHLORIDE TABS 20 MEQ TABLET.ER (FP) PO ONE (12:00)
[2017-12-01] MEDS: ACETAMINOPHEN 325 MG TABLET (FP) PO PRN ×2 (12:58→21:07)
[2017-12-02] MEDS: HEPARIN NA (PORCINE) 5,000 UNITS/ML 1ML VIAL SQ SCH ×3 (05:27→21:55)
[2017-12-02 08:00] LABS: BASO % 0.8 % (0-2.0); EOS % 1.4 % (0-4.5); HEMATOCRIT 28.3 % (32.4-45.2); HEMOGLOBIN 8.7 GM/dL (10.7-15.3); LYMPH % 13.4 % (8-40); MCHC 30.7 g/dl (32.0-36.0); MEAN CELL VOLUME 78.2 fl (80-96); MEAN PLT VOLUME 6.9 fl (7.5-11.1); MONO % 6.6 % (3.8-10.2); NEUT % 77.8 % (42.8-82.8); PLATELET COUNT 646 K/MM3 (134-434); RBC 3.61 M/mm3 (3.60-5.2); RDW 19.1 % (11.6-15.6); WHITE BLOOD COUNT 19.3 K/mm3 (4.0-10.0)
[2017-12-02 08:27] LABS: ALBUMIN 1.6 g/dl (3.4-5.0); ALK PHOS 182 U/L (45-117); ANION GAP 9 MMOL/L (8-16); BILIRUBIN,TOTAL 0.3 mg/dL (0.2-1); BLOOD UREA NITROGEN 20 mg/dL (7-18); CALCIUM 8.9 mg/dL (8.5-10.1); CHLORIDE 114 mmol/L (98-107); CO2 21 mmol/L (21-32); CREATININE 0.7 mg/dL (0.55-1.3); GLUCOSE,RANDOM 78 mg/dL (74-106); POTASSIUM 3.7 mmol/L (3.5-5.1); SGOT/AST 25 U/L (15-37); SGPT/ALT 26 U/L (13-61); SODIUM 144 mmol/L (136-145); TOT PROT 6.6 g/dl (6.4-8.2)
[2017-12-02] MEDS: AMINO ACIDS/PROTEIN HYDROLYS 30 ML LIQUID.PKT PO SCH ×2 (08:44→18:36)
[2017-12-02] MEDS: FERROUS SO4 300 MG/5 ML ORAL SOLN UNIT DOSE CUPS PO SCH ×2 (08:44→18:36)
[2017-12-02] MEDS: BACITRACIN 15 GM TUBE TOPICAL OINTMENT TP SCH (11:00)
[2017-12-02] MEDS: MULTIVITAMINS (DAILY MVI) TABLET (FP) PO SCH (11:05)
[2017-12-02] MEDS: FUROSEMIDE 20 MG TABLET (FP) PO SCH (11:05)
[2017-12-02] MEDS: LACTOBACILLUS ACIDOPHILUS 1 TABLET PO SCH (11:06)
[2017-12-02] MEDS: ZINC SULFATE 220 MG CAPSULE (FP) PO SCH ×2 (11:06→21:55)
[2017-12-02] MEDS: ASCORBIC ACID 500 MG TABLET (FP) PO SCH ×2 (11:06→21:54)
[2017-12-02] MEDS: DOXYCYCLINE HYCLATE 100 MG CAPSULE PO SCH ×2 (13:13→19:44)
[2017-12-02] MEDS ORDERED: FENTANYL PATCH WASTE TD PRN (13:33)
--- NOTE | 2017-12-02 14:02 | PN ---
Progress Note, Physician Chief Complaint: patient seen and examined spoke to tom in the room - Current Medication List Current Medications: Active Medications Acetaminophen (Tylenol -) 650 mg PO Q4H PRN PRN Reason: PAIN OR FEVER Last Admin: 12/01/17 21:07 Dose: 650 mg Amino Acids (Prosource No Carb Liquid Pkt) 30 ml PO BID@0800,1730 [facility] Last Admin: 12/02/17 08:44 Dose: 30 ml Ascorbic Acid (Vitamin C -) 500 mg PO BID [facility] Last Admin: 12/02/17 11:06 Dose: 500 mg Bacitracin (Bacitracin -) 1 applic TP DAILY [facility] Last Admin: 12/01/17 09:50 Dose: 1 applic Doxycycline Hyclate (Vibramycin -) 100 mg PO BID@1000,1800 [facility] Last Admin: 12/02/17 13:13 Dose: 100 mg Fentanyl (Duragesic 50mcg Patch -) 1 patch TD Q72H [facility] Stop: 12/09/17 13:34 Ferrous Sulfate (Feosol) 300 mg PO BIDWM [facility] Last Admin: 12/02/17 08:44 Dose: 300 mg Furosemide (Lasix -) 20 mg PO DAILY [facility] Last Admin: 12/02/17 11:05 Dose: 20 mg Heparin Sodium (Porcine) (Heparin -) 5,000 unit SQ TID [facility] Last Admin: 12/02/17 05:27 Dose: 5,000 unit Lactobacillus Acidophilus (Bacid -) 1 tab PO DAILY [facility] Last Admin: 12/02/17 11:06 Dose: 1 tab Miscellaneous (Duragesic Patch Waste) 1 each TD PRN PRN PRN Reason: PAIN Multivitamins/Minerals/Vitamin C (Tab-A-Vit -) 1 tab PO DAILY [facility] Last Admin: 12/02/17 11:05 Dose: 1 tab Ondansetron HCl (Zofran -) 4 mg PO Q6H PRN PRN Reason: NAUSEA AND/OR VOMITING Zinc Sulfate (Orazinc -) 220 mg PO BID [facility] Last Admin: 12/02/17 11:06 Dose: 220 mg - Objective Vital Signs: Vital Signs Temperature 98.4 F 12/02/17 11:03 Pulse Rate 96 H 12/02/17 11:03 Respiratory Rate 20 12/02/17 11:03 Blood Pressure 118/50 L 12/02/17 11:03 O2 Sat by Pulse Oximetry (%) 98 12/01/17 21:00 Constitutional: Yes: Calm Neck: Yes: Thyromegaly Cardiovascular: Yes: Regular Rate and Rhythm, S1, S2 Respiratory: Yes: CTA Bilaterally Gastrointestinal: Yes: Normal Bowel Sounds, Soft Genitourinary: Yes: Diop Present Extremities: Yes: Other (contracted) Edema: No Wound/Incision: Yes: Other (all wounds open and seen) Neurological: Yes: Alert Labs: CBC, BMP 12/02/17 06:40 12/02/17 06:40 INR, PTT INR 1.21 (0.83-1.09) H 11/17/17 16:30 Problem List - Problems (1) Leukocytosis Assessment/Plan: afebrile today off abx observe presistent leukocytosis- heme consult noted outpatient work up ID follow up noted isolation Microbiology 11/18/17 16:45 Urine - Urine Diop Urine Culture - Final Providencia Stuartii 11/18/17 00:23 Decubiti Gram Stain - Final 11/18/17 00:23 Decubiti Wound Culture - Preliminary Proteus Mirabilis Acinetobacter Baumannii/Haemol Escherichia Coli Enterococcus Faecalis Microbiology 11/25/17 15:30 Stool Clostridium difficile Antigen (SILVESTRE) - Final 11/25/17 15:30 Stool Clostridium difficile Toxin Assay - Final 11/18/17 16:45 Urine - Urine Diop Urine Culture - Final Providencia Stuartii 11/18/17 00:23 Decubiti Gram Stain - Final 11/18/17 00:23 Decubiti Wound Culture - Final Proteus Mirabilis Acinetobacter Baumannii/Haemol Escherichia Coli Enterococcus Faecalis 11/17/17 22:20 Buttock - Right Gram Stain - Final 11/17/17 22:20 Buttock - Right Wound Culture - Final Non Lactose Fermenting Gnb Non Lactose Fermenting Gnb#2 Lactose Fermenting Neg Bacilli Group D Strep Or Entero Coccus 11/17/17 16:30 Groin Gram Stain - Final 11/17/17 16:30 Groin Wound Culture - Final Strep Agalactiae Group B Staphylococcus Coagulase Neg 11/17/17 16:30 Blood - Peripheral Venous Blood Culture - Final NO GROWTH AFTER 5 DAYS INCUBATION 11/17/17 16:30 Blood - Peripheral Venous Blood Culture - Final NO GROWTH AFTER 5 DAYS INCUBATION Code(s): D72.829 - ELEVATED WHITE BLOOD CELL COUNT, UNSPECIFIED (2) Hypoalbuminemia due to protein-calorie malnutrition Assessment/Plan: proscource Code(s): E46 - UNSPECIFIED PROTEIN-CALORIE MALNUTRITION (3) Anemia Assessment/Plan: iron and vitamin C Code(s): D64.9 - ANEMIA, UNSPECIFIED (4) Electrolyte abnormality Assessment/Plan: potassium is normal Code(s): E87.8 - OTH DISORDERS OF ELECTROLYTE AND FLUID BALANCE, NEC (5) Decubitus ulcer Assessment/Plan: wound care consult noted prosource vitamin c and zinc dietary eval pain control Code(s): L89.90 - PRESSURE ULCER OF UNSPECIFIED SITE, UNSPECIFIED STAGE
[2017-12-02] MEDS: fentaNYL 50mcg/hr PATCH.TD72 TD SCH (14:41)
[2017-12-02] MEDS: ACETAMINOPHEN 325 MG TABLET (FP) PO PRN (21:55)
[2017-12-03] MEDS: HEPARIN NA (PORCINE) 5,000 UNITS/ML 1ML VIAL SQ SCH ×3 (06:46→21:18)
[2017-12-03] MEDS: FERROUS SO4 300 MG/5 ML ORAL SOLN UNIT DOSE CUPS PO SCH ×2 (09:01→18:00)
[2017-12-03] MEDS: AMINO ACIDS/PROTEIN HYDROLYS 30 ML LIQUID.PKT PO SCH ×2 (09:01→18:00)
[2017-12-03] MEDS ORDERED: PT OWN MED DRAWER 7, Y5N ONE ×3 (10:51→17:52)
[2017-12-03] MEDS: ZINC SULFATE 220 MG CAPSULE (FP) PO SCH ×3 (11:08→21:19)
[2017-12-03] MEDS: LACTOBACILLUS ACIDOPHILUS 1 TABLET PO SCH (11:08)
[2017-12-03] MEDS: ASCORBIC ACID 500 MG TABLET (FP) PO SCH ×2 (11:08→21:19)
[2017-12-03] MEDS: FUROSEMIDE 20 MG TABLET (FP) PO SCH ×2 (11:09→15:30)
[2017-12-03] MEDS: BACITRACIN 15 GM TUBE TOPICAL OINTMENT TP SCH (11:09)
[2017-12-03] MEDS: MULTIVITAMINS (DAILY MVI) TABLET (FP) PO SCH (11:10)
[2017-12-03] MEDS: DOXYCYCLINE HYCLATE 100 MG CAPSULE PO SCH ×2 (12:16→18:03)
[2017-12-03] MEDS: ACETAMINOPHEN 325 MG TABLET (FP) PO PRN ×2 (13:20→21:18)
--- NOTE | 2017-12-03 14:44 | PN ---
Progress Note, Physician Chief Complaint: sepsis Infected decubitous ulcers History of Present Illness: nad Severely contracted several decubitus ulcers, ranging from stage 2-4 Seen by ID Seen by Surgery Wound consult observing off IV abx UC/BC/WC: Microbiology 11/17/17 16:30 Groin Gram Stain - Final 11/17/17 16:30 Groin Wound Culture - Final Strep Agalactiae Group B Staphylococcus Coagulase Neg 11/17/17 22:20 Buttock - Right Gram Stain - Final 11/17/17 22:20 Buttock - Right Wound Culture - Preliminary Non Lactose Fermenting Gnb Non Lactose Fermenting Gnb#2 Lactose Fermenting Neg Bacilli Group D Strep Or Entero Coccus 11/18/17 00:23 Decubiti Gram Stain - Final 11/18/17 00:23 Decubiti Wound Culture - Preliminary Non Lactose Fermenting Gnb Non Lactose Fermenting Gnb#2 Lactose Fermenting Neg Bacilli Group D Strep Or Entero Coccus 11/18/17 16:45 Urine - Urine Diop Urine Culture - Final Providencia Stuartii 11/17/17 16:30 Blood - Peripheral Venous Blood Culture - Preliminary NO GROWTH OBTAINED AFTER 72 HOURS, INCUBATION TO CONTINUE FOR 2 DAYS. 11/17/17 16:30 Blood - Peripheral Venous Blood Culture - Preliminary NO GROWTH OBTAINED AFTER 72 HOURS, INCUBATION TO CONTINUE FOR 2 DAYS. leukocytosis without any fevers awaiting discharge - Current Medication List Current Medications: Active Medications Acetaminophen (Tylenol -) 650 mg PO Q4H PRN PRN Reason: PAIN OR FEVER Last Admin: 12/03/17 13:20 Dose: 650 mg Amino Acids (Prosource No Carb Liquid Pkt) 30 ml PO BID@0800,1730 [facility] Last Admin: 12/03/17 09:01 Dose: 30 ml Ascorbic Acid (Vitamin C -) 500 mg PO BID [facility] Last Admin: 12/03/17 11:08 Dose: 500 mg Bacitracin (Bacitracin -) 1 applic TP DAILY [facility] Last Admin: 12/03/17 11:09 Dose: Not Given Doxycycline Hyclate (Vibramycin -) 100 mg PO BID@1000,1800 [facility] Last Admin: 12/03/17 12:16 Dose: 100 mg Fentanyl (Duragesic 50mcg Patch -) 1 patch TD Q72H [facility] Stop: 12/09/17 13:34 Last Admin: 12/02/17 14:41 Dose: 1 patch Ferrous Sulfate (Feosol) 300 mg PO BIDWM [facility] Last Admin: 12/03/17 09:01 Dose: 300 mg Furosemide (Lasix -) 20 mg PO DAILY [facility] Last Admin: 12/03/17 11:09 Dose: Not Given Heparin Sodium (Porcine) (Heparin -) 5,000 unit SQ TID [facility] Last Admin: 12/03/17 14:06 Dose: 5,000 unit Lactobacillus Acidophilus (Bacid -) 1 tab PO DAILY [facility] Last Admin: 12/03/17 11:08 Dose: 1 tab Miscellaneous (Duragesic Patch Waste) 1 each TD PRN PRN PRN Reason: PAIN Multivitamins/Minerals/Vitamin C (Tab-A-Vit -) 1 tab PO DAILY [facility] Last Admin: 12/03/17 11:10 Dose: 1 tab Ondansetron HCl (Zofran -) 4 mg PO Q6H PRN PRN Reason: NAUSEA AND/OR VOMITING Zinc Sulfate (Orazinc -) 220 mg PO BID [facility] Last Admin: 12/03/17 11:09 Dose: 220 mg - Objective Vital Signs: Vital Signs Temperature 98.3 F 12/03/17 10:57 Pulse Rate 80 12/03/17 10:57 Respiratory Rate 20 12/03/17 10:57 Blood Pressure 99/59 L 12/03/17 10:57 O2 Sat by Pulse Oximetry (%) 98 12/02/17 21:00 Constitutional: Yes: Well Nourished, No Distress, Calm Cardiovascular: Yes: Regular Rate and Rhythm Respiratory: Yes: Regular Gastrointestinal: Yes: Normal Bowel Sounds, Soft, Abdomen, Obese Musculoskeletal: Yes: Muscle Weakness Neurological: Yes: Pre-Existing Deficit Labs: CBC, BMP 12/02/17 06:40 12/02/17 06:40 INR, PTT INR 1.21 (0.83-1.09) H 11/17/17 16:30 Problem List - Problems (1) Anemia Assessment/Plan: -Iron deficient -Started on Ferrous sulfate -monitor trend -Stool Ob negative Code(s): D64.9 - ANEMIA, UNSPECIFIED (2) Contractures involving both knees Code(s): M24.561 - CONTRACTURE, RIGHT KNEE; M24.562 - CONTRACTURE, LEFT KNEE (3) Decubitus ulcer of buttock, unstageable Assessment/Plan: -Seen by ID and Plastic surgery -off IV abx -WC: Microbiology 11/25/17 15:30 Stool Clostridium difficile Antigen (SILVESTRE) - Final 11/25/17 15:30 Stool Clostridium difficile Toxin Assay - Final 11/17/17 22:20 Buttock - Right Gram Stain - Final 11/17/17 22:20 Buttock - Right Wound Culture - Final Non Lactose Fermenting Gnb Non Lactose Fermenting Gnb#2 Lactose Fermenting Neg Bacilli Group D Strep Or Entero Coccus 11/18/17 00:23 Decubiti Gram Stain - Final 11/18/17 00:23 Decubiti Wound Culture - Final Proteus Mirabilis Acinetobacter Baumannii/Haemol Escherichia Coli Enterococcus Faecalis 11/17/17 16:30 Blood - Peripheral Venous Blood Culture - Final NO GROWTH AFTER 5 DAYS INCUBATION 11/17/17 16:30 Blood - Peripheral Venous Blood Culture - Final NO GROWTH AFTER 5 DAYS INCUBATION 11/17/17 16:30 Groin Gram Stain - Final 11/17/17 16:30 Groin Wound Culture - Final Strep Agalactiae Group B Staphylococcus Coagulase Neg 11/18/17 16:45 Urine - Urine Diop Urine Culture - Final Providencia Stuartii -Prosource bid Code(s): L89.300 - PRESSURE ULCER OF UNSPECIFIED BUTTOCK, UNSTAGEABLE (4) Wound infection Assessment/Plan: -off IV abx -afebrile -WBC increased -ID on board -Added Zinc + Vit C Code(s): T14.8XXA - OTHER INJURY OF UNSPECIFIED BODY REGION, INITIAL ENCOUNTER; L08.9 - LOCAL INFECTION OF THE SKIN AND SUBCUTANEOUS TISSUE, UNSP (5) Hypoalbuminemia due to protein-calorie malnutrition Assessment/Plan: -Prosource BID Code(s): E46 - UNSPECIFIED PROTEIN-CALORIE MALNUTRITION (6) Leukocytosis Assessment/Plan: -consider hematology consult-called -Afebrile -monitor trend Code(s): D72.829 - ELEVATED WHITE BLOOD CELL COUNT, UNSPECIFIED Assessment/Plan see problem list
[2017-12-04] MEDS: HEPARIN NA (PORCINE) 5,000 UNITS/ML 1ML VIAL SQ SCH ×3 (05:07→21:10)
[2017-12-04] MEDS: FERROUS SO4 300 MG/5 ML ORAL SOLN UNIT DOSE CUPS PO SCH ×2 (08:48→17:59)
[2017-12-04] MEDS: AMINO ACIDS/PROTEIN HYDROLYS 30 ML LIQUID.PKT PO SCH ×2 (08:48→17:59)
[2017-12-04] MEDS: ACETAMINOPHEN 325 MG TABLET (FP) PO PRN ×2 (08:54→18:06)
[2017-12-04] MEDS ORDERED: PT OWN MED DRAWER 7, Y5N ONE ×2 (11:17→17:52)
[2017-12-04] MEDS: ZINC SULFATE 220 MG CAPSULE (FP) PO SCH ×2 (11:21→21:10)
[2017-12-04] MEDS: MULTIVITAMINS (DAILY MVI) TABLET (FP) PO SCH (11:21)
[2017-12-04] MEDS: ASCORBIC ACID 500 MG TABLET (FP) PO SCH ×2 (11:21→21:10)
[2017-12-04] MEDS: LACTOBACILLUS ACIDOPHILUS 1 TABLET PO SCH (11:21)
[2017-12-04] MEDS: FUROSEMIDE 20 MG TABLET (FP) PO SCH ×3 (11:21→15:26)
[2017-12-04] MEDS: DOXYCYCLINE HYCLATE 100 MG CAPSULE PO SCH ×2 (11:22→17:59)
--- NOTE | 2017-12-04 11:46 | PN ---
Progress Note, Physician Chief Complaint: sepsis Infected decubitous ulcers History of Present Illness: nad Severely contracted several decubitus ulcers, ranging from stage 2-4 Seen by ID Seen by Surgery Wound consult observing off IV abx UC/BC/WC: Microbiology 11/17/17 16:30 Groin Gram Stain - Final 11/17/17 16:30 Groin Wound Culture - Final Strep Agalactiae Group B Staphylococcus Coagulase Neg 11/17/17 22:20 Buttock - Right Gram Stain - Final 11/17/17 22:20 Buttock - Right Wound Culture - Preliminary Non Lactose Fermenting Gnb Non Lactose Fermenting Gnb#2 Lactose Fermenting Neg Bacilli Group D Strep Or Entero Coccus 11/18/17 00:23 Decubiti Gram Stain - Final 11/18/17 00:23 Decubiti Wound Culture - Preliminary Non Lactose Fermenting Gnb Non Lactose Fermenting Gnb#2 Lactose Fermenting Neg Bacilli Group D Strep Or Entero Coccus 11/18/17 16:45 Urine - Urine Diop Urine Culture - Final Providencia Stuartii 11/17/17 16:30 Blood - Peripheral Venous Blood Culture - Preliminary NO GROWTH OBTAINED AFTER 72 HOURS, INCUBATION TO CONTINUE FOR 2 DAYS. 11/17/17 16:30 Blood - Peripheral Venous Blood Culture - Preliminary NO GROWTH OBTAINED AFTER 72 HOURS, INCUBATION TO CONTINUE FOR 2 DAYS. leukocytosis without any fevers awaiting discharge - Current Medication List Current Medications: Active Medications Acetaminophen (Tylenol -) 650 mg PO Q4H PRN PRN Reason: PAIN OR FEVER Last Admin: 12/04/17 08:54 Dose: 650 mg Amino Acids (Prosource No Carb Liquid Pkt) 30 ml PO BID@0800,1730 [facility] Last Admin: 12/04/17 08:48 Dose: 30 ml Ascorbic Acid (Vitamin C -) 500 mg PO BID [facility] Last Admin: 12/04/17 11:21 Dose: 500 mg Bacitracin (Bacitracin -) 1 applic TP DAILY [facility] Last Admin: 12/03/17 11:09 Dose: Not Given Doxycycline Hyclate (Vibramycin -) 100 mg PO BID@1000,1800 [facility] Last Admin: 12/04/17 11:22 Dose: 100 mg Fentanyl (Duragesic 50mcg Patch -) 1 patch TD Q72H [facility] Stop: 12/09/17 13:34 Last Admin: 12/02/17 14:41 Dose: 1 patch Ferrous Sulfate (Feosol) 300 mg PO BIDWM [facility] Last Admin: 12/04/17 08:48 Dose: 300 mg Furosemide (Lasix -) 20 mg PO DAILY [facility] Last Admin: 12/04/17 11:31 Dose: Not Given Heparin Sodium (Porcine) (Heparin -) 5,000 unit SQ TID [facility] Last Admin: 12/04/17 05:07 Dose: 5,000 unit Lactobacillus Acidophilus (Bacid -) 1 tab PO DAILY [facility] Last Admin: 12/04/17 11:21 Dose: 1 tab Miscellaneous (Duragesic Patch Waste) 1 each TD PRN PRN PRN Reason: PAIN Multivitamins/Minerals/Vitamin C (Tab-A-Vit -) 1 tab PO DAILY [facility] Last Admin: 12/04/17 11:21 Dose: 1 tab Ondansetron HCl (Zofran -) 4 mg PO Q6H PRN PRN Reason: NAUSEA AND/OR VOMITING Zinc Sulfate (Orazinc -) 220 mg PO BID [facility] Last Admin: 12/04/17 11:21 Dose: 220 mg - Objective Vital Signs: Vital Signs Temperature 97.4 F L 12/04/17 11:15 Pulse Rate 74 12/04/17 11:15 Respiratory Rate 20 12/04/17 11:15 Blood Pressure 91/57 L 12/04/17 11:15 O2 Sat by Pulse Oximetry (%) 98 12/03/17 19:07 Constitutional: Yes: Well Nourished, No Distress, Calm Cardiovascular: Yes: Regular Rate and Rhythm Respiratory: Yes: Regular Gastrointestinal: Yes: Normal Bowel Sounds, Soft, Abdomen, Obese Neurological: Yes: Alert, Pre-Existing Deficit Psychiatric: Yes: Alert Labs: CBC, BMP 12/02/17 06:40 12/02/17 06:40 INR, PTT INR 1.21 (0.83-1.09) H 11/17/17 16:30 Problem List - Problems (1) Anemia Assessment/Plan: -Iron deficient -Started on Ferrous sulfate -monitor trend -Stool Ob negative Code(s): D64.9 - ANEMIA, UNSPECIFIED (2) Contractures involving both knees Code(s): M24.561 - CONTRACTURE, RIGHT KNEE; M24.562 - CONTRACTURE, LEFT KNEE (3) Decubitus ulcer of buttock, unstageable Assessment/Plan: -Seen by ID and Plastic surgery -off IV abx -WC: Microbiology 11/25/17 15:30 Stool Clostridium difficile Antigen (SILVESTRE) - Final 11/25/17 15:30 Stool Clostridium difficile Toxin Assay - Final 11/17/17 22:20 Buttock - Right Gram Stain - Final 11/17/17 22:20 Buttock - Right Wound Culture - Final Non Lactose Fermenting Gnb Non Lactose Fermenting Gnb#2 Lactose Fermenting Neg Bacilli Group D Strep Or Entero Coccus 11/18/17 00:23 Decubiti Gram Stain - Final 11/18/17 00:23 Decubiti Wound Culture - Final Proteus Mirabilis Acinetobacter Baumannii/Haemol Escherichia Coli Enterococcus Faecalis 11/17/17 16:30 Blood - Peripheral Venous Blood Culture - Final NO GROWTH AFTER 5 DAYS INCUBATION 11/17/17 16:30 Blood - Peripheral Venous Blood Culture - Final NO GROWTH AFTER 5 DAYS INCUBATION 11/17/17 16:30 Groin Gram Stain - Final 11/17/17 16:30 Groin Wound Culture - Final Strep Agalactiae Group B Staphylococcus Coagulase Neg 11/18/17 16:45 Urine - Urine Diop Urine Culture - Final Providencia Stuartii -Prosource bid Code(s): L89.300 - PRESSURE ULCER OF UNSPECIFIED BUTTOCK, UNSTAGEABLE (4) Wound infection Assessment/Plan: -off IV abx -afebrile -WBC increased -ID on board -Added Zinc + Vit C Code(s): T14.8XXA - OTHER INJURY OF UNSPECIFIED BODY REGION, INITIAL ENCOUNTER; L08.9 - LOCAL INFECTION OF THE SKIN AND SUBCUTANEOUS TISSUE, UNSP (5) Hypoalbuminemia due to protein-calorie malnutrition Assessment/Plan: -Prosource BID Code(s): E46 - UNSPECIFIED PROTEIN-CALORIE MALNUTRITION (6) Leukocytosis Assessment/Plan: -consider hematology consult-called -Afebrile -monitor trend Code(s): D72.829 - ELEVATED WHITE BLOOD CELL COUNT, UNSPECIFIED Assessment/Plan see problem list
[2017-12-04] MEDS: BACITRACIN 15 GM TUBE TOPICAL OINTMENT TP SCH (15:33)
[2017-12-04] MEDS: MIRTAZAPINE 15 MG TABLET (FP) PO SCH (21:09)
[2017-12-05] MEDS: HEPARIN NA (PORCINE) 5,000 UNITS/ML 1ML VIAL SQ SCH ×3 (05:18→21:25)
[2017-12-05] MEDS: AMINO ACIDS/PROTEIN HYDROLYS 30 ML LIQUID.PKT PO SCH ×3 (09:03→18:30)
[2017-12-05] MEDS: BACITRACIN 15 GM TUBE TOPICAL OINTMENT TP SCH (09:04)
[2017-12-05] MEDS: ASCORBIC ACID 500 MG TABLET (FP) PO SCH ×2 (09:04→21:25)
[2017-12-05] MEDS: MULTIVITAMINS (DAILY MVI) TABLET (FP) PO SCH (09:04)
[2017-12-05] MEDS: FERROUS SO4 300 MG/5 ML ORAL SOLN UNIT DOSE CUPS PO SCH ×2 (09:04→18:30)
[2017-12-05] MEDS: ZINC SULFATE 220 MG CAPSULE (FP) PO SCH ×2 (09:04→21:25)
[2017-12-05] MEDS: LACTOBACILLUS ACIDOPHILUS 1 TABLET PO SCH (09:04)
[2017-12-05] MEDS: FUROSEMIDE 20 MG TABLET (FP) PO SCH (09:09)
[2017-12-05] MEDS ORDERED: PT OWN MED DRAWER 7, Y5N ONE (09:17)
[2017-12-05] MEDS: DOXYCYCLINE HYCLATE 100 MG CAPSULE PO SCH ×2 (09:29→18:52)
--- NOTE | 2017-12-05 12:00 | CONSULT ---
Admitting History and Physical - Primary Care Physician PCP: Jaron Rosario - Admission History of Present Illness: Patient is a 72 year old woman , a new patient at [facility], was sent from [facility] for evaluation of draining wounds and decubiti ulcers. Reported to pocket food, intermittent PO acceptance, receives Ensure clear TID and Prosource. 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 Attempted to feed pt, remarking "no" with most attempts. Pt took 3 sips of Ensure clear with much encouragement needed. History Source: Medical Record Limitations to Obtaining History: Clinical Condition, Dementia - Past Medical History [employer]: Yes: Alzheimer's - Past Surgical History Past Surgical History: Yes: Joint Replacement - Advance Directives Advance Directives: Yes: DNR - Smoking History Smoking history: Unknown if ever smoked Have you smoked in the past 12 months: No - Alcohol/Substance Use Hx Alcohol Use: No History - Admission Reason For Visit: OPEN WOUND OF HIP AND THIGH WITH COMPLICATION - Diagnostics X-ray: Report Reviewed - General Mental Status: Confused Attention: Moderate Impairment Ability to Follow Directions: Poor - Hearing Hearing Aide: No With Patient: No Speech Evaluation - Communication Primary Language: CZECH Communication: Yes: Simple Responses (No, Daddy) - Speech Production Able to Make Needs Known: Yes: Moderately Impaired - Speech Characteristics Voice Loudness: Normal Voice Pitch: Yes: Normal Voice Phonatory-based Quality: Yes: Normal Speech Pattern: Normal Speech Clarity: < 100% Nasal Resonance: Normal Articulation: Yes: Precise - Language/Verbal Expression Functional Communication Status: Yes: Severely Impaired - Swallow Evaluation/Bedside Assessment Current Nutritional Intake: Dysphagia Pureed, Thin Liquids, Other (Ensure clear tid) Dentition: Yes: Edentulous Facial Symmetry at Rest: Symmetrical Laryngeal Elevation: WFL Laryngeal Movement: Able to Palpate Timing of Swallow: WFL Coughing/Throat Clear: No Change in Voice: No Recommendations - Speech Evaluation, Impression/Plan Impression: Pt morbidly Obese, limited PO acceptance, confused. Swallow is brisk. 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 Pt's wishes?) - Recommendations Diet Consistency: Dysphagia Pureed Medication Administration: Crushed with applesauce Liquids: Thin Liquids
--- NOTE | 2017-12-05 13:31 | PN ---
Progress Note, Physician Chief Complaint: patient seen and examined daily neff saw the patient change to thin liquids spoke to harbor pilot s well spoke to daughter tom today she doesnot want feeding tube - Current Medication List Current Medications: Active Medications Acetaminophen (Tylenol -) 650 mg PO Q4H PRN PRN Reason: PAIN OR FEVER Last Admin: 12/04/17 18:06 Dose: 650 mg Amino Acids (Prosource No Carb Liquid Pkt) 30 ml PO TIDCM [facility] Last Admin: 12/05/17 09:03 Dose: 30 ml Ascorbic Acid (Vitamin C -) 500 mg PO BID [facility] Last Admin: 12/05/17 09:04 Dose: 500 mg Bacitracin (Bacitracin -) 1 applic TP DAILY [facility] Last Admin: 12/05/17 09:04 Dose: 1 applic Doxycycline Hyclate (Vibramycin -) 100 mg PO BID@1000,1800 [facility] Last Admin: 12/05/17 09:29 Dose: 100 mg Fentanyl (Duragesic 50mcg Patch -) 1 patch TD Q72H [facility] Stop: 12/09/17 13:34 Last Admin: 12/02/17 14:41 Dose: 1 patch Ferrous Sulfate (Feosol) 300 mg PO BIDWM [facility] Last Admin: 12/05/17 09:04 Dose: 300 mg Furosemide (Lasix -) 20 mg PO DAILY [facility] Last Admin: 12/05/17 09:09 Dose: 20 mg Heparin Sodium (Porcine) (Heparin -) 5,000 unit SQ TID [facility] Last Admin: 12/05/17 05:18 Dose: 5,000 unit Lactobacillus Acidophilus (Bacid -) 1 tab PO DAILY [facility] Last Admin: 12/05/17 09:04 Dose: 1 tab Mirtazapine (Remeron -) 7.5 mg PO HS [facility] Last Admin: 12/04/17 21:09 Dose: 7.5 mg Miscellaneous (Duragesic Patch Waste) 1 each TD PRN PRN PRN Reason: PAIN Multivitamins/Minerals/Vitamin C (Tab-A-Vit -) 1 tab PO DAILY [facility] Last Admin: 12/05/17 09:04 Dose: 1 tab Ondansetron HCl (Zofran -) 4 mg PO Q6H PRN PRN Reason: NAUSEA AND/OR VOMITING Zinc Sulfate (Orazinc -) 220 mg PO BID [facility] Last Admin: 12/05/17 09:04 Dose: 220 mg - Objective Vital Signs: Vital Signs Temperature 97.6 F 12/05/17 09:31 Pulse Rate 93 H 12/05/17 09:31 Respiratory Rate 19 12/05/17 09:31 Blood Pressure 155/78 12/05/17 09:31 O2 Sat by Pulse Oximetry (%) 97 12/04/17 21:00 Constitutional: Yes: Calm Cardiovascular: Yes: Regular Rate and Rhythm, S1, S2 Respiratory: Yes: Diminished Gastrointestinal: Yes: Normal Bowel Sounds, Soft Extremities: Yes: Other (contracted) Edema: No Wound/Incision: Yes: Other (sacral wounds) Labs: CBC, BMP 12/02/17 06:40 12/02/17 06:40 INR, PTT INR 1.21 (0.83-1.09) H 11/17/17 16:30 Problem List - Problems (1) Leukocytosis Assessment/Plan: afebrile off abx observe presistent leukocytosis- heme consult noted outpatient work up ID follow up noted isolation Microbiology 11/18/17 16:45 Urine - Urine Diop Urine Culture - Final Providencia Stuartii 11/18/17 00:23 Decubiti Gram Stain - Final 11/18/17 00:23 Decubiti Wound Culture - Preliminary Proteus Mirabilis Acinetobacter Baumannii/Haemol Escherichia Coli Enterococcus Faecalis Microbiology 11/25/17 15:30 Stool Clostridium difficile Antigen (SILVESTRE) - Final 11/25/17 15:30 Stool Clostridium difficile Toxin Assay - Final 11/18/17 16:45 Urine - Urine Diop Urine Culture - Final Providencia Stuartii 11/18/17 00:23 Decubiti Gram Stain - Final 11/18/17 00:23 Decubiti Wound Culture - Final Proteus Mirabilis Acinetobacter Baumannii/Haemol Escherichia Coli Enterococcus Faecalis 11/17/17 22:20 Buttock - Right Gram Stain - Final 11/17/17 22:20 Buttock - Right Wound Culture - Final Non Lactose Fermenting Gnb Non Lactose Fermenting Gnb#2 Lactose Fermenting Neg Bacilli Group D Strep Or Entero Coccus 11/17/17 16:30 Groin Gram Stain - Final 11/17/17 16:30 Groin Wound Culture - Final Strep Agalactiae Group B Staphylococcus Coagulase Neg 11/17/17 16:30 Blood - Peripheral Venous Blood Culture - Final NO GROWTH AFTER 5 DAYS INCUBATION 11/17/17 16:30 Blood - Peripheral Venous Blood Culture - Final NO GROWTH AFTER 5 DAYS INCUBATION Code(s): D72.829 - ELEVATED WHITE BLOOD CELL COUNT, UNSPECIFIED (2) Hypoalbuminemia due to protein-calorie malnutrition Assessment/Plan: proscource ensure clear family doesnot want feedign tube will start clininmix Code(s): E46 - UNSPECIFIED PROTEIN-CALORIE MALNUTRITION (3) Anemia Assessment/Plan: iron and vitamin C Code(s): D64.9 - ANEMIA, UNSPECIFIED (4) Electrolyte abnormality Assessment/Plan: potassium is normal Code(s): E87.8 - OTH DISORDERS OF ELECTROLYTE AND FLUID BALANCE, NEC (5) Decubitus ulcer Assessment/Plan: wound care consult noted prosource vitamin c and zinc dietary eval pain control Code(s): L89.90 - PRESSURE ULCER OF UNSPECIFIED SITE, UNSPECIFIED STAGE Assessment/Plan family had applead discharge sara start clininimix
[2017-12-05] MEDS: fentaNYL 50mcg/hr PATCH.TD72 TD SCH ×2 (15:40→16:01)
[2017-12-05] MEDS: AMINO ACIDS 4.25%/D5W 1,000 ML IV SCH ×2 (15:41→16:53)
[2017-12-05 16:38] LABS: BASO % 1.2 % (0-2.0); HEMATOCRIT 30.1 % (32.4-45.2); HEMOGLOBIN 9.4 GM/dL (10.7-15.3); LYMPH % 7.5 % (8-40); MCH 24.5 pg (25.7-33.7); MCHC 31.1 g/dl (32.0-36.0); MEAN CELL VOLUME 78.8 fl (80-96); MONO % 6.5 % (3.8-10.2); NEUT % 83.8 % (42.8-82.8); PLATELET COUNT 732 K/MM3 (134-434); RBC 3.82 M/mm3 (3.60-5.2); RDW 19.4 % (11.6-15.6); WHITE BLOOD COUNT 21.1 K/mm3 (4.0-10.0)
[2017-12-05 17:27] LABS: ALBUMIN 1.6 g/dl (3.4-5.0); ALK PHOS 194 U/L (45-117); ANION GAP 11 MMOL/L (8-16); BILIRUBIN,TOTAL 0.2 mg/dL (0.2-1); BLOOD UREA NITROGEN 21 mg/dL (7-18); CHLORIDE 112 mmol/L (98-107); CO2 23 mmol/L (21-32); CREATININE 0.8 mg/dL (0.55-1.3); GLUCOSE,RANDOM 142 mg/dL (74-106); MAGNESIUM 1.9 mg/dL (1.8-2.4); POTASSIUM 3.3 mmol/L (3.5-5.1); SGOT/AST 9 U/L (15-37); SGPT/ALT 19 U/L (13-61); SODIUM 145 mmol/L (136-145); TOT PROT 6.8 g/dl (6.4-8.2)
[2017-12-05 18:13] LABS: ANISOCYTOSIS 2+; MACROCYTOSIS 2+; PLATELET ESTIMATE INCREASED
[2017-12-05] MEDS: MIRTAZAPINE 15 MG TABLET (FP) PO SCH (21:25)
[2017-12-06] MEDS: AMINO ACIDS 4.25%/D5W 1,000 ML IV SCH ×2 (02:08→15:01)
[2017-12-06] MEDS: ACETAMINOPHEN 325 MG TABLET (FP) PO PRN ×3 (02:10→21:21)
[2017-12-06] MEDS: HEPARIN NA (PORCINE) 5,000 UNITS/ML 1ML VIAL SQ SCH ×3 (06:11→21:22)
[2017-12-06] MEDS: MULTIVITAMINS (DAILY MVI) TABLET (FP) PO SCH (09:28)
[2017-12-06] MEDS: FUROSEMIDE 20 MG TABLET (FP) PO SCH (09:28)
[2017-12-06] MEDS: LACTOBACILLUS ACIDOPHILUS 1 TABLET PO SCH (09:28)
[2017-12-06] MEDS: ZINC SULFATE 220 MG CAPSULE (FP) PO SCH ×2 (09:28→21:21)
[2017-12-06] MEDS: AMINO ACIDS/PROTEIN HYDROLYS 30 ML LIQUID.PKT PO SCH ×3 (09:28→18:46)
[2017-12-06] MEDS: BACITRACIN 15 GM TUBE TOPICAL OINTMENT TP SCH (09:28)
[2017-12-06] MEDS: FERROUS SO4 300 MG/5 ML ORAL SOLN UNIT DOSE CUPS PO SCH ×2 (09:28→18:46)
[2017-12-06] MEDS: ASCORBIC ACID 500 MG TABLET (FP) PO SCH ×2 (09:28→21:21)
--- NOTE | 2017-12-06 09:57 | PN ---
Progress Note, Physician - Current Medication List Current Medications: Active Medications Acetaminophen (Tylenol -) 650 mg PO Q4H PRN PRN Reason: PAIN OR FEVER Last Admin: 12/06/17 02:10 Dose: 650 mg Amino Acids (Prosource No Carb Liquid Pkt) 30 ml PO TIDCM [facility] Last Admin: 12/06/17 09:28 Dose: 30 ml Ascorbic Acid (Vitamin C -) 500 mg PO BID [facility] Last Admin: 12/06/17 09:28 Dose: 500 mg Bacitracin (Bacitracin -) 1 applic TP DAILY [facility] Last Admin: 12/06/17 09:28 Dose: 1 applic Doxycycline Hyclate (Vibramycin -) 100 mg PO BID@1000,1800 [facility] Last Admin: 12/05/17 18:52 Dose: 100 mg Fentanyl (Duragesic 50mcg Patch -) 1 patch TD Q72H [facility] Stop: 12/09/17 13:34 Last Admin: 12/05/17 16:01 Dose: 1 patch Ferrous Sulfate (Feosol) 300 mg PO BIDWM [facility] Last Admin: 12/06/17 09:28 Dose: 300 mg Furosemide (Lasix -) 20 mg PO DAILY [facility] Last Admin: 12/06/17 09:28 Dose: 20 mg Heparin Sodium (Porcine) (Heparin -) 5,000 unit SQ TID [facility] Last Admin: 12/06/17 06:11 Dose: 5,000 unit Amino Acids (Clinimix -) 1,000 mls @ 42 mls/hr IV Q12H [facility] Last Admin: 12/06/17 02:08 Dose: Not Given Lactobacillus Acidophilus (Bacid -) 1 tab PO DAILY [facility] Last Admin: 12/06/17 09:28 Dose: 1 tab Mirtazapine (Remeron -) 7.5 mg PO HS [facility] Last Admin: 12/05/17 21:25 Dose: 7.5 mg Miscellaneous (Duragesic Patch Waste) 1 each TD PRN PRN PRN Reason: PAIN Last Admin: 12/05/17 16:04 Dose: 1 each Multivitamins/Minerals/Vitamin C (Tab-A-Vit -) 1 tab PO DAILY [facility] Last Admin: 12/06/17 09:28 Dose: 1 tab Ondansetron HCl (Zofran -) 4 mg PO Q6H PRN PRN Reason: NAUSEA AND/OR VOMITING Zinc Sulfate (Orazinc -) 220 mg PO BID [facility] Last Admin: 12/06/17 09:28 Dose: 220 mg - Objective Vital Signs: Vital Signs Temperature 98.6 F 12/06/17 09:38 Pulse Rate 81 12/06/17 09:38 Respiratory Rate 18 12/06/17 09:38 Blood Pressure 140/70 12/06/17 09:38 O2 Sat by Pulse Oximetry (%) 97 12/05/17 21:00 Labs: CBC, BMP 12/05/17 15:30 12/05/17 15:30 INR, PTT INR 1.21 (0.83-1.09) H 11/17/17 16:30 Problem List - Problems (1) Wound infection Code(s): T14.8XXA - OTHER INJURY OF UNSPECIFIED BODY REGION, INITIAL ENCOUNTER; L08.9 - LOCAL INFECTION OF THE SKIN AND SUBCUTANEOUS TISSUE, UNSP (2) Contractures involving both knees Code(s): M24.561 - CONTRACTURE, RIGHT KNEE; M24.562 - CONTRACTURE, LEFT KNEE (3) Dementia Code(s): F03.90 - UNSPECIFIED DEMENTIA WITHOUT BEHAVIORAL DISTURBANCE (4) Anemia Code(s): D64.9 - ANEMIA, UNSPECIFIED Assessment/Plan - Problems (1) Leukocytosis Assessment/Plan: afebrile off abx observe presistent leukocytosis- heme consult noted outpatient work up ID follow up noted isolation Microbiology 11/18/17 16:45 Urine - Urine Diop Urine Culture - Final Providencia Stuartii 11/18/17 00:23 Decubiti Gram Stain - Final 11/18/17 00:23 Decubiti Wound Culture - Preliminary Proteus Mirabilis Acinetobacter Baumannii/Haemol Escherichia Coli Enterococcus Faecalis Microbiology 11/25/17 15:30 Stool Clostridium difficile Antigen (SILVESTRE) - Final 11/25/17 15:30 Stool Clostridium difficile Toxin Assay - Final 11/18/17 16:45 Urine - Urine Diop Urine Culture - Final Providencia Stuartii 11/18/17 00:23 Decubiti Gram Stain - Final 11/18/17 00:23 Decubiti Wound Culture - Final Proteus Mirabilis Acinetobacter Baumannii/Haemol Escherichia Coli Enterococcus Faecalis 11/17/17 22:20 Buttock - Right Gram Stain - Final 11/17/17 22:20 Buttock - Right Wound Culture - Final Non Lactose Fermenting Gnb Non Lactose Fermenting Gnb#2 Lactose Fermenting Neg Bacilli Group D Strep Or Entero Coccus 11/17/17 16:30 Groin Gram Stain - Final 11/17/17 16:30 Groin Wound Culture - Final Strep Agalactiae Group B Staphylococcus Coagulase Neg 11/17/17 16:30 Blood - Peripheral Venous Blood Culture - Final NO GROWTH AFTER 5 DAYS INCUBATION 11/17/17 16:30 Blood - Peripheral Venous Blood Culture - Final NO GROWTH AFTER 5 DAYS INCUBATION Code(s): D72.829 - ELEVATED WHITE BLOOD CELL COUNT, UNSPECIFIED (2) Hypoalbuminemia due to protein-calorie malnutrition Assessment/Plan: proscource ensure clear family does not want feeding tube will start clininmix Code(s): E46 - UNSPECIFIED PROTEIN-CALORIE MALNUTRITION (3) Anemia Assessment/Plan: iron and vitamin C Code(s): D64.9 - ANEMIA, UNSPECIFIED (4) Electrolyte abnormality Assessment/Plan: potassium is normal Code(s): E87.8 - OTH DISORDERS OF ELECTROLYTE AND FLUID BALANCE, NEC (5) Decubitus ulcer Assessment/Plan: wound care consult noted prosource vitamin c and zinc dietary eval pain control Code(s): L89.90 - PRESSURE ULCER OF UNSPECIFIED SITE, UNSPECIFIED STAGE
[2017-12-06] MEDS: DOXYCYCLINE HYCLATE 100 MG CAPSULE PO SCH ×2 (10:55→18:47)
--- NOTE | 2017-12-06 11:00 | PN ---
Progress Note, INFECTION CONTROL PRACTITIONER - Note Progress Note: Selected Entries 12/04/17 12/04/17 12/04/17 06:29 11:15 15:20 Breakfast 75% Lunch 25% Skin Risk Level Supper Total Score - Skin Risk Assessment Temperature 97.4 F L 97.4 F L 12/04/17 12/04/17 12/04/17 15:21 18:30 21:00 Breakfast Lunch Skin Risk Level Supper 25% Total Score - Skin Risk Assessment Temperature 98.8 F 98.6 F 98.9 F 12/05/17 12/05/17 12/05/17 06:00 09:31 09:42 Breakfast 25% Lunch Skin Risk Level Supper Total Score - Skin Risk Assessment Temperature 99.6 F 97.6 F 12/05/17 12/05/17 12/05/17 14:18 18:00 18:43 Breakfast Lunch 25% Skin Risk Level Supper 50% Total Score - Skin Risk Assessment Temperature 99.3 F 100.1 F H 12/05/17 12/06/17 12/06/17 22:00 02:00 06:00 Breakfast Lunch Skin Risk Level High Risk Supper Total Score - 10 Skin Risk Assessment Temperature 99.4 F 97.8 F 99.4 F 12/06/17 09:38 Breakfast Lunch Skin Risk Level Supper Total Score - Skin Risk Assessment Temperature 98.6 F Laboratory Tests 12/02/17 12/05/17 06:40 15:30 WBC 19.3 H 21.1 H Case discussed with staff. Poor PO acceptance for staff, but eats for family. Family does not want PEG insertion. Today, pt accepted Ensure/Prostat for me because I told her "Your family wants me to give this to you to get strong." Hopefully family can attend for meals to increase nutritional acceptance. No signs of aspiration with thin liquid from a straw.
[2017-12-06] MEDS ORDERED: PT OWN MED DRAWER 7, Y5N ONE (11:31)
--- NOTE | 2017-12-06 14:26 | PATH ---
Surgical Pathology Report Patient Name: DARIN PORTILLO [facility]. Rec. #: [id number] /Age/Gender: 1945 (Age: 72) / F Account: [id number] Location: [address] [place] [address] Taken: 12/02/2017 Received: 12/02/2017 Reported: 12/06/2017 Physicians: Sonam Stokes M.D. Specimen(s) Received 2 GREEN AND 2 LAVENDER Clinical History Thrombocytosis, leukocytosis Final Diagnosis COMPREHENSIVE FLOW CYTOMETRY PANEL [facility] [place] [place] ([id number]) shows the following: INTERPRETATION: GRANULOCYTOSIS WITH NO DISCRETE ATYPICAL FLOW CYTOMETRIC FINDINGS SEEN. JAK2 (V617F) MUTATION ANALYSIS BY PCR performed and [facility] [place] [place] ([id number]) shows the following: RESULTS: Only the wild-type JAK2 sequence was detected. INTERPRETATION: Negative for JAK2 (V617F) Mutation. See [facility] reports ([id number] and [id number]) for additional details. Electronically Signed Colleen Melendrez M.D. Addendum Reported: 12/07/2017 Addendum Diagnosis BCR-ABL Gene Rearrangement (IS) performed and interpreted at [facility] in [place], [place] ([id number]) show the following: RESULTS: Negative BCR/ABL Major Breakpoints (b2a2 and b3a2): Not Detected. BCR/ABL Minor Breakpoint (e1a2): Not Detected. INTERPRETATION: No BCR-ABL translocation was detected in this sample. See [facility] reports for details. Colleen Melendrez M.D. Addendum Reported: 12/08/2017 Addendum Diagnosis JAK2 Exon 12 & 13 Mutation Analysis performed and interpreted at [facility] [place] ([id number]) shows the following: RESULTS: JAK2 Exon 12 Mutation: NOT DETECTED JAK2 Exon 13 Mutation: NOT DETECTED INTERPRETATION: Negative for JAK2 (Exon 12 & 13) Mutations. See [facility] report for additional details. Colleen Melendrez M.D. Gross Description Received are 2 green top tubes and 2 lavender top tubes of blood which are sent to [facility]. DL/12/02/2017 saudi12/02/2017
[2017-12-06] MEDS: MIRTAZAPINE 15 MG TABLET (FP) PO SCH (21:21)
[2017-12-07] MEDS: AMINO ACIDS 4.25%/D5W 1,000 ML IV SCH ×2 (01:51→15:37)
[2017-12-07] MEDS: HEPARIN NA (PORCINE) 5,000 UNITS/ML 1ML VIAL SQ SCH ×3 (06:26→21:06)
--- NOTE | 2017-12-07 08:38 | PN ---
Progress Note, Physician - Current Medication List Current Medications: Active Medications Acetaminophen (Tylenol -) 650 mg PO Q4H PRN PRN Reason: PAIN OR FEVER Last Admin: 12/06/17 21:21 Dose: 650 mg Amino Acids (Prosource No Carb Liquid Pkt) 30 ml PO TIDCM [facility] Last Admin: 12/06/17 18:46 Dose: 30 ml Ascorbic Acid (Vitamin C -) 500 mg PO BID [facility] Last Admin: 12/06/17 21:21 Dose: 500 mg Bacitracin (Bacitracin -) 1 applic TP DAILY [facility] Last Admin: 12/06/17 09:28 Dose: 1 applic Doxycycline Hyclate (Vibramycin -) 100 mg PO BID@1000,1800 [facility] Last Admin: 12/06/17 18:47 Dose: 100 mg Fentanyl (Duragesic 50mcg Patch -) 1 patch TD Q72H [facility] Stop: 12/09/17 13:34 Last Admin: 12/05/17 16:01 Dose: 1 patch Ferrous Sulfate (Feosol) 300 mg PO BIDWM [facility] Last Admin: 12/06/17 18:46 Dose: 300 mg Furosemide (Lasix -) 20 mg PO DAILY [facility] Last Admin: 12/06/17 09:28 Dose: 20 mg Heparin Sodium (Porcine) (Heparin -) 5,000 unit SQ TID [facility] Last Admin: 12/07/17 06:26 Dose: 5,000 unit Amino Acids (Clinimix -) 1,000 mls @ 42 mls/hr IV Q12H [facility] Last Admin: 12/07/17 01:51 Dose: Not Given Lactobacillus Acidophilus (Bacid -) 1 tab PO DAILY [facility] Last Admin: 12/06/17 09:28 Dose: 1 tab Mirtazapine (Remeron -) 7.5 mg PO HS [facility] Last Admin: 12/06/17 21:21 Dose: 7.5 mg Miscellaneous (Duragesic Patch Waste) 1 each TD PRN PRN PRN Reason: PAIN Last Admin: 12/05/17 16:04 Dose: 1 each Multivitamins/Minerals/Vitamin C (Tab-A-Vit -) 1 tab PO DAILY [facility] Last Admin: 12/06/17 09:28 Dose: 1 tab Ondansetron HCl (Zofran -) 4 mg PO Q6H PRN PRN Reason: NAUSEA AND/OR VOMITING Zinc Sulfate (Orazinc -) 220 mg PO BID [facility] Last Admin: 12/06/17 21:21 Dose: 220 mg - Objective Vital Signs: Vital Signs Temperature 98.7 F 12/07/17 06:00 Pulse Rate 90 12/07/17 06:00 Respiratory Rate 20 12/07/17 06:00 Blood Pressure 108/65 12/07/17 06:00 O2 Sat by Pulse Oximetry (%) 97 12/06/17 21:00 Cardiovascular: Yes: S1, S2 Respiratory: Yes: Diminished Gastrointestinal: Yes: Normal Bowel Sounds, Soft Neurological: Yes: Confusion Labs: CBC, BMP 12/05/17 15:30 12/05/17 15:30 INR, PTT INR 1.21 (0.83-1.09) H 11/17/17 16:30 Problem List - Problems (1) Wound infection Code(s): T14.8XXA - OTHER INJURY OF UNSPECIFIED BODY REGION, INITIAL ENCOUNTER; L08.9 - LOCAL INFECTION OF THE SKIN AND SUBCUTANEOUS TISSUE, UNSP (2) Contractures involving both knees Code(s): M24.561 - CONTRACTURE, RIGHT KNEE; M24.562 - CONTRACTURE, LEFT KNEE (3) Dementia Code(s): F03.90 - UNSPECIFIED DEMENTIA WITHOUT BEHAVIORAL DISTURBANCE (4) Anemia Code(s): D64.9 - ANEMIA, UNSPECIFIED Assessment/Plan - Problems (1) Leukocytosis Assessment/Plan: afebrile off abx observe presistent leukocytosis- heme consult noted outpatient work up ID follow up noted isolation Microbiology 11/18/17 16:45 Urine - Urine Diop Urine Culture - Final Providencia Stuartii 11/18/17 00:23 Decubiti Gram Stain - Final 11/18/17 00:23 Decubiti Wound Culture - Preliminary Proteus Mirabilis Acinetobacter Baumannii/Haemol Escherichia Coli Enterococcus Faecalis Microbiology 11/25/17 15:30 Stool Clostridium difficile Antigen (SILVESTRE) - Final 11/25/17 15:30 Stool Clostridium difficile Toxin Assay - Final 11/18/17 16:45 Urine - Urine Diop Urine Culture - Final Providencia Stuartii 11/18/17 00:23 Decubiti Gram Stain - Final 11/18/17 00:23 Decubiti Wound Culture - Final Proteus Mirabilis Acinetobacter Baumannii/Haemol Escherichia Coli Enterococcus Faecalis 09/06/18 22:20 Buttock - Right Gram Stain - Final 11/17/17 22:20 Buttock - Right Wound Culture - Final Non Lactose Fermenting Gnb Non Lactose Fermenting Gnb#2 Lactose Fermenting Neg Bacilli Group D Strep Or Entero Coccus 11/17/17 16:30 Groin Gram Stain - Final 11/17/17 16:30 Groin Wound Culture - Final Strep Agalactiae Group B Staphylococcus Coagulase Neg 11/17/17 16:30 Blood - Peripheral Venous Blood Culture - Final NO GROWTH AFTER 5 DAYS INCUBATION 11/17/17 16:30 Blood - Peripheral Venous Blood Culture - Final NO GROWTH AFTER 5 DAYS INCUBATION Code(s): D72.829 - ELEVATED WHITE BLOOD CELL COUNT, UNSPECIFIED (2) Hypoalbuminemia due to protein-calorie malnutrition Assessment/Plan: proscource ensure clear family does not want feeding tube will start clininmix Code(s): E46 - UNSPECIFIED PROTEIN-CALORIE MALNUTRITION (3) Anemia Assessment/Plan: iron and vitamin C Code(s): D64.9 - ANEMIA, UNSPECIFIED (4) Electrolyte abnormality Assessment/Plan: potassium is normal Code(s): E87.8 - OTH DISORDERS OF ELECTROLYTE AND FLUID BALANCE, NEC (5) Decubitus ulcer Assessment/Plan: wound care consult noted--will get follow up due to family refusing peg and supplements--iv--limits wound care prosource vitamin c and zinc dietary eval pain control Code(s): L89.90 - PRESSURE ULCER OF UNSPECIFIED SITE, UNSPECIFIED STAGE
[2017-12-07] MEDS ORDERED: PT OWN MED DRAWER 7, Y5N ONE (08:48)
[2017-12-07] MEDS: MULTIVITAMINS (DAILY MVI) TABLET (FP) PO SCH (10:17)
[2017-12-07] MEDS: ZINC SULFATE 220 MG CAPSULE (FP) PO SCH ×2 (10:17→21:06)
[2017-12-07] MEDS: AMINO ACIDS/PROTEIN HYDROLYS 30 ML LIQUID.PKT PO SCH ×3 (10:18→18:38)
[2017-12-07] MEDS: ASCORBIC ACID 500 MG TABLET (FP) PO SCH ×2 (10:18→21:06)
[2017-12-07] MEDS: LACTOBACILLUS ACIDOPHILUS 1 TABLET PO SCH (10:18)
[2017-12-07] MEDS: FERROUS SO4 300 MG/5 ML ORAL SOLN UNIT DOSE CUPS PO SCH ×2 (10:18→18:38)
[2017-12-07] MEDS: DOXYCYCLINE HYCLATE 100 MG CAPSULE PO SCH ×2 (10:18→18:38)
[2017-12-07] MEDS: BACITRACIN 15 GM TUBE TOPICAL OINTMENT TP SCH (10:40)
[2017-12-07] MEDS: FUROSEMIDE 20 MG TABLET (FP) PO SCH (10:40)
[2017-12-07] MEDS: ACETAMINOPHEN 325 MG TABLET (FP) PO PRN ×2 (12:37→21:04)
--- NOTE | 2017-12-07 13:57 | PN ---
Progress Note (short form) - Note Progress Note: Plastic Surgery Conference with family, case management social worker ,Palliative care nurse Patient decubittii evaluated , including draining fistulas...wound are shield cleaner some loose necrotic tissue at the edge rest of wound has more granulation and healthier appearance Special Meeting set with Family and close friend ...present at bedside .... Meeting place : [facility] 20 min Time spend listening to Kacey daughter/health care proxy , daughter has reached a point where she understands that aggressive Medical care will cause more trauma pain to the patient , daughters decision is avoid any more pain, including starting an IV.....They asked about Labs which was given Microbiology 11/18/17 00:23 Decubiti Gram Stain - Final 11/18/17 00:23 Decubiti Wound Culture - Final Proteus Mirabilis Acinetobacter Baumannii/Haemol Escherichia Coli Enterococcus Faecalis Laboratory Tests 12/05/17 12/05/17 15:30 15:30 WBC 21.1 H Hgb 9.4 L Hct 30.1 L MCV 78.8 L MCH 24.5 L MCHC 31.1 L RDW 19.4 H Plt Count 732 H MPV 7.0 L Absolute Neuts (auto) 17.6 H Neutrophils % 83.8 H Lymphocytes % 7.5 L D Potassium 3.3 L Chloride 112 H BUN 21 H Random Glucose 142 H Alkaline Phosphatase 194 H Total Protein 6.8 Albumin 1.6 L Kacey agrees to make arrangements for patient to be discharged ...various options were given including [facility]....she declines as she wants something closer so will continue to feed mother Hospices was also discussed, palliative care Nurse helped her to understand the time when patient will be transferred into Hospices care Another meeting set with egg worker and Meera for 11.45 Am tomorrow
[2017-12-07] MEDS: MIRTAZAPINE 15 MG TABLET (FP) PO SCH (21:05)
[2017-12-08] MEDS: HEPARIN NA (PORCINE) 5,000 UNITS/ML 1ML VIAL SQ SCH ×3 (06:57→21:20)
--- NOTE | 2017-12-08 07:54 | PN ---
Progress Note, Physician - Current Medication List Current Medications: Active Medications Acetaminophen (Tylenol -) 650 mg PO Q4H PRN PRN Reason: PAIN OR FEVER Last Admin: 12/07/17 21:04 Dose: 650 mg Amino Acids (Prosource No Carb Liquid Pkt) 30 ml PO TIDCM [facility] Last Admin: 12/07/17 18:38 Dose: 30 ml Ascorbic Acid (Vitamin C -) 500 mg PO BID [facility] Last Admin: 12/07/17 21:06 Dose: 500 mg Bacitracin (Bacitracin -) 1 applic TP DAILY [facility] Last Admin: 12/07/17 10:40 Dose: 1 applic Doxycycline Hyclate (Vibramycin -) 100 mg PO BID@1000,1800 [facility] Last Admin: 12/07/17 18:38 Dose: 100 mg Fentanyl (Duragesic 50mcg Patch -) 1 patch TD Q72H [facility] Stop: 12/09/17 13:34 Last Admin: 12/05/17 16:01 Dose: 1 patch Ferrous Sulfate (Feosol) 300 mg PO BIDWM [facility] Last Admin: 12/07/17 18:38 Dose: 300 mg Furosemide (Lasix -) 20 mg PO DAILY [facility] Last Admin: 12/07/17 10:40 Dose: 20 mg Heparin Sodium (Porcine) (Heparin -) 5,000 unit SQ TID [facility] Last Admin: 12/08/17 06:57 Dose: 5,000 unit Lactobacillus Acidophilus (Bacid -) 1 tab PO DAILY [facility] Last Admin: 12/07/17 10:18 Dose: 1 tab Mirtazapine (Remeron -) 7.5 mg PO HS [facility] Last Admin: 12/07/17 21:05 Dose: 7.5 mg Miscellaneous (Duragesic Patch Waste) 1 each TD PRN PRN PRN Reason: PAIN Last Admin: 12/05/17 16:04 Dose: 1 each Multivitamins/Minerals/Vitamin C (Tab-A-Vit -) 1 tab PO DAILY [facility] Last Admin: 12/07/17 10:17 Dose: 1 tab Ondansetron HCl (Zofran -) 4 mg PO Q6H PRN PRN Reason: NAUSEA AND/OR VOMITING Zinc Sulfate (Orazinc -) 220 mg PO BID [facility] Last Admin: 12/07/17 21:06 Dose: 220 mg - Objective Vital Signs: Vital Signs Temperature 97.9 F 12/08/17 06:00 Pulse Rate 106 H 12/08/17 06:00 Respiratory Rate 18 12/08/17 06:00 Blood Pressure 125/74 12/08/17 06:00 O2 Sat by Pulse Oximetry (%) 98 12/07/17 21:00 Cardiovascular: Yes: S1, S2 Respiratory: Yes: Regular, CTA Bilaterally Gastrointestinal: Yes: Normal Bowel Sounds, Soft Labs: CBC, BMP 12/05/17 15:30 12/05/17 15:30 INR, PTT INR 1.21 (0.83-1.09) H 11/17/17 16:30 Problem List - Problems (1) Wound infection Code(s): T14.8XXA - OTHER INJURY OF UNSPECIFIED BODY REGION, INITIAL ENCOUNTER; L08.9 - LOCAL INFECTION OF THE SKIN AND SUBCUTANEOUS TISSUE, UNSP (2) Contractures involving both knees Code(s): M24.561 - CONTRACTURE, RIGHT KNEE; M24.562 - CONTRACTURE, LEFT KNEE (3) Dementia Code(s): F03.90 - UNSPECIFIED DEMENTIA WITHOUT BEHAVIORAL DISTURBANCE (4) Anemia Code(s): D64.9 - ANEMIA, UNSPECIFIED Assessment/Plan - Problems (1) Leukocytosis Assessment/Plan: afebrile off abx observe presistent leukocytosis- heme consult noted outpatient work up ID follow up noted isolation Microbiology 11/18/17 16:45 Urine - Urine Diop Urine Culture - Final Providencia Stuartii 11/18/17 00:23 Decubiti Gram Stain - Final 11/18/17 00:23 Decubiti Wound Culture - Preliminary Proteus Mirabilis Acinetobacter Baumannii/Haemol Escherichia Coli Enterococcus Faecalis Microbiology 11/25/17 15:30 Stool Clostridium difficile Antigen (SILVESTRE) - Final 11/25/17 15:30 Stool Clostridium difficile Toxin Assay - Final 11/18/17 16:45 Urine - Urine Diop Urine Culture - Final Providencia Stuartii 11/18/17 00:23 Decubiti Gram Stain - Final 11/18/17 00:23 Decubiti Wound Culture - Final Proteus Mirabilis Acinetobacter Baumannii/Haemol Escherichia Coli Enterococcus Faecalis 11/17/17 22:20 Buttock - Right Gram Stain - Final 11/17/17 22:20 Buttock - Right Wound Culture - Final Non Lactose Fermenting Gnb Non Lactose Fermenting Gnb#2 Lactose Fermenting Neg Bacilli Group D Strep Or Entero Coccus 11/17/17 16:30 Groin Gram Stain - Final 11/17/17 16:30 Groin Wound Culture - Final Strep Agalactiae Group B Staphylococcus Coagulase Neg 11/17/17 16:30 Blood - Peripheral Venous Blood Culture - Final NO GROWTH AFTER 5 DAYS INCUBATION 11/17/17 16:30 Blood - Peripheral Venous Blood Culture - Final NO GROWTH AFTER 5 DAYS INCUBATION Code(s): D72.829 - ELEVATED WHITE BLOOD CELL COUNT, UNSPECIFIED (2) Hypoalbuminemia due to protein-calorie malnutrition Assessment/Plan: proscource ensure clear family does not want feeding tube will start clininmix Code(s): E46 - UNSPECIFIED PROTEIN-CALORIE MALNUTRITION (3) Anemia Assessment/Plan: iron and vitamin C Code(s): D64.9 - ANEMIA, UNSPECIFIED (4) Electrolyte abnormality Assessment/Plan: potassium is normal Code(s): E87.8 - OTH DISORDERS OF ELECTROLYTE AND FLUID BALANCE, NEC (5) Decubitus ulcer Assessment/Plan: wound care consult noted--will get follow up due to family refusing peg and supplements--iv--limits wound care prosource vitamin c and zinc dietary eval pain control Code(s): L89.90 - PRESSURE ULCER OF UNSPECIFIED SITE, UNSPECIFIED STAGE
[2017-12-08] MEDS ORDERED: PT OWN MED DRAWER 7, Y5N ONE ×3 (08:04→19:41)
[2017-12-08] MEDS: BACITRACIN 15 GM TUBE TOPICAL OINTMENT TP SCH (10:00)
[2017-12-08] MEDS: MULTIVITAMINS (DAILY MVI) TABLET (FP) PO SCH (12:33)
[2017-12-08] MEDS: AMINO ACIDS/PROTEIN HYDROLYS 30 ML LIQUID.PKT PO SCH ×3 (12:34→17:53)
[2017-12-08] MEDS: FUROSEMIDE 20 MG TABLET (FP) PO SCH (12:34)
[2017-12-08] MEDS: DOXYCYCLINE HYCLATE 100 MG CAPSULE PO SCH ×2 (12:35→17:54)
[2017-12-08] MEDS: ZINC SULFATE 220 MG CAPSULE (FP) PO SCH ×2 (12:35→21:19)
[2017-12-08] MEDS: ASCORBIC ACID 500 MG TABLET (FP) PO SCH ×2 (12:35→21:19)
[2017-12-08] MEDS: LACTOBACILLUS ACIDOPHILUS 1 TABLET PO SCH (12:35)
[2017-12-08] MEDS: FERROUS SO4 300 MG/5 ML ORAL SOLN UNIT DOSE CUPS PO SCH ×2 (12:37→17:54)
[2017-12-08] MEDS: ACETAMINOPHEN 325 MG TABLET (FP) PO PRN ×2 (12:41→21:19)
[2017-12-08] MEDS: fentaNYL 50mcg/hr PATCH.TD72 TD SCH (14:51)
[2017-12-08] MEDS: MIRTAZAPINE 15 MG TABLET (FP) PO SCH (21:19)
[2017-12-09] MEDS: HEPARIN NA (PORCINE) 5,000 UNITS/ML 1ML VIAL SQ SCH (05:39)
[2017-12-09] MEDS: AMINO ACIDS/PROTEIN HYDROLYS 30 ML LIQUID.PKT PO SCH (09:03)
[2017-12-09] MEDS: FERROUS SO4 300 MG/5 ML ORAL SOLN UNIT DOSE CUPS PO SCH (09:05)
--- NOTE | 2017-12-09 10:21 | DS ---
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 Who presents to the ED via ambulance for evaluation of decubitus ulcers and draining wounds. Per patient's daughter who is at bedside, she was sent from [facility] for management of a right hip wound and large sacral ulcer. Per her daughter Kacey, Ms Munoz had her hip surgery about 8 years ago. She initially did well but had a fall the following spring with a back injury. She then had surgery on her back. Since that time, she has been non-ambulatory and now has leg contractures. The daughter reports that the patient has been treated numerous times for infection in the hip, and has had debridements of sacral ulcers multiple times. However, per the daughter, the patient has only been receiving local wound care for months now. Per ED records: Per her PMD Dr Bennett at the [facility], it does not appear that she has been evaluated by infectious disease or orthopedics for at least 4 years. There are no recent labs or cultures available. She reported that she recently took over the care of Ms Munoz, so she does not know the entire history. However, she reported that the wound had a foul odor and was draining when the patient was evaluated. She felt that it needed evaluation and management by orthopedics and ID. - Problems (1) Leukocytosis Assessment/Plan: afebrile off abx observe presistent leukocytosis- heme consult noted outpatient work up ID follow up noted isolation Microbiology 11/18/17 16:45 Urine - Urine [facility] Urine Culture - Final Providencia Stuartii 11/18/17 00:23 Decubiti Gram Stain - Final 11/18/17 00:23 Decubiti Wound Culture - Preliminary Proteus Mirabilis Acinetobacter Baumannii/Haemol Escherichia Coli Enterococcus Faecalis Microbiology 11/25/17 15:30 Stool Clostridium difficile Antigen (SILVESTRE) - Final 11/25/17 15:30 Stool Clostridium difficile Toxin Assay - Final 11/18/17 16:45 Urine - Urine Monroe Urine Culture - Final Providencia Stuartii 11/18/17 00:23 Decubiti Gram Stain - Final 11/18/17 00:23 Decubiti Wound Culture - Final Proteus Mirabilis Acinetobacter Baumannii/Haemol Escherichia Coli Enterococcus Faecalis 11/17/17 22:20 Buttock - Right Gram Stain - Final 11/17/17 22:20 Buttock - Right Wound Culture - Final Non Lactose Fermenting Gnb Non Lactose Fermenting Gnb#2 Lactose Fermenting Neg Bacilli Group D Strep Or Entero Coccus 11/17/17 16:30 Groin Gram Stain - Final 11/17/17 16:30 Groin Wound Culture - Final Strep Agalactiae Group B Staphylococcus Coagulase Neg 11/17/17 16:30 Blood - Peripheral Venous Blood Culture - Final NO GROWTH AFTER 5 DAYS INCUBATION 11/17/17 16:30 Blood - Peripheral Venous Blood Culture - Final NO GROWTH AFTER 5 DAYS INCUBATION Code(s): D72.829 - ELEVATED WHITE BLOOD CELL COUNT, UNSPECIFIED (2) Hypoalbuminemia due to protein-calorie malnutrition Assessment/Plan: proscource ensure clear family does not want feeding tube will start clininmix Code(s): E46 - UNSPECIFIED PROTEIN-CALORIE MALNUTRITION (3) Anemia Assessment/Plan: iron and vitamin C Code(s): D64.9 - ANEMIA, UNSPECIFIED (4) Electrolyte abnormality Assessment/Plan: potassium is normal Code(s): E87.8 - OTH DISORDERS OF ELECTROLYTE AND FLUID BALANCE, NEC (5) Decubitus ulcer Assessment/Plan: wound care consult noted--will get follow up due to family refusing peg and supplements--iv--limits wound care prosource vitamin c and zinc dietary eval pain control Code(s): L89.90 - PRESSURE ULCER OF UNSPECIFIED SITE, UNSPECIFIED STAGE Condition: Fair - Instructions Diet, Activity, Other Instructions: Discharge with monroe for wound healing Replace Monroe once a month, Monroe insertion date 11/18/17 Referrals: Jaron Rosario MD [Primary Care Provider] - Alessandro Bermudez MD [Staff Physician] - 2 Weeks (for leukocytosis work up) Disposition: INTERMEDIATE FACILITY - Home Medications Comprehensive Discharge Medication List: Ambulatory Orders Furosemide [Lasix] 20 mg PO DAILY 11/17/17 Acetaminophen [Tylenol .Regular Strength -] 650 mg PO Q4H PRN tablet 11/28/17 Amino Acids/Protein Hydrolys [Prosource No Carb Liquid Pkt] 30 ml PO BID@0800, 1730 packet 11/28/17 Ascorbic Acid [Vitamin C -] 500 mg PO BID tablet 11/28/17 Bacitracin - [Bacitracin Topical Ointment -] 1 applic TP DAILY tube 11/28/17 Heparin - 5,000 unit SQ TID vial 11/28/17 Lactobacillus Acidophilus [Bacid -] 1 tab PO DAILY tab 11/28/17 Multivitamins [Multivit ([facility] Formulary)] 1 tab PO DAILY tab 11/28/17 Zinc Sulfate [Orazinc -] 220 mg PO BID capsule 11/28/17 Ondansetron [Zofran -] 4 mg PO Q6H PRN tablet 11/30/17 Amino Acids/Protein Hydrolys [Prosource No Carb Liquid Pkt] 30 ml PO TIDCM packet 12/09/17 Doxycycline Hyclate [Vibramycin -] 100 mg PO BID@1000,1800 capsule 12/09/17 FENTANYL 50mcg PATCH [DURAGESIC 50 mcg PATCH -] 1 patch TD Q72H #10 patch.td72 MDD 1 12/09/17 Mirtazapine [Remeron -] 7.5 mg PO HS tablet 12/09/17
[2017-12-09 10:58] VITALS: BP 105/57; PULSE 84; TEMP 98.2
[2017-12-09] MEDS: BACITRACIN 15 GM TUBE TOPICAL OINTMENT TP SCH (11:11)
== END 2017-12-09 12:13 | disposition hospice, inpatient (51) | DRG 592 ==
LOC: JER 14:19 → JERBED 19:51 → J5S 11-18 00:28
PROVIDERS: ADMIT Internal Medicine; ATTEND Family Medicine
DX: L89.324 Pressure ulcer of left buttock, stage 4 (principal); R53.2 Functional quadriplegia; T84.51XA Infection and inflammatory reaction due to internal right hip prosthesis, initial encounter; E46 Unspecified protein-calorie malnutrition; Z74.01 Bed confinement status; L89.210 Pressure ulcer of right hip, unstageable; L89.310 Pressure ulcer of right buttock, unstageable; L89.150 Pressure ulcer of sacral region, unstageable; M62.462 Contracture of muscle, left lower leg; M62.461 Contracture of muscle, right lower leg; Z66 Do not resuscitate; Y83.8 Other surgical procedures as the cause of abnormal reaction of the patient, or of later complication, without mention of misadventure at the time of the procedure; F03.90 Unspecified dementia, unspecified severity, without behavioral disturbance, psychotic disturbance, mood disturbance, and anxiety; Z96.641 Presence of right artificial hip joint; Z86.73 Personal history of transient ischemic attack (TIA), and cerebral infarction without residual deficits; B95.1 Streptococcus, group B, as the cause of diseases classified elsewhere; B95.8 Unspecified staphylococcus as the cause of diseases classified elsewhere; B95.2 Enterococcus as the cause of diseases classified elsewhere; E88.09 Other disorders of plasma-protein metabolism, not elsewhere classified; D50.9 Iron deficiency anemia, unspecified; E87.8 Other disorders of electrolyte and fluid balance, not elsewhere classified; Z16.39 Resistance to other specified antimicrobial drug; B96.29 Other Escherichia coli [E. coli] as the cause of diseases classified elsewhere
CPT/HCPCS: 36415; 71045-TC-FY; 73701-TC-RT; 74177-TC; 80048; 80053; 81003; 81015; 82272; 82550; 82607; 82728; 82746; 82962; 83036; 83540; 83550; 83605; 83735; 84439; 84443; 84484; 85025; 85027; 85610; 85730; 87040; 87070; 87086; 87186; 87205; 87324; 87449; 88300-TC; 93005; 93010; 97161-GP; 99285-25; J0131; J1644; J7030